=== PATIENT | male | born 1935 | race Caucasian/White ===

== ENCOUNTER 2020-03-20 07:35 | Emergency (ER) | payer OTHER ==
--- OUTSIDE RECORDS SUMMARY | 2020-03-20 07:37 | XMS REPORT | Continuity of Care Document ---
:[address] [facility] t Address [address] [place] [address] Care Team Providers Name Role Phone Sharpless Primary Care Physician STACY ELIZONDO Attending Clinician Unavailable OSMAN CHANDRA Admitting Clinician Unavailable Problems Condition Condition Condition Status Onset Resolution Last Treating Co mments Source Name Details Category Date Date Treatment Clinician Date Chest pain Chest pain Disease Active [facility] - [facility] 00 [place] Positive D Positive D Disease Active [facility] dimer dimer 08-03[facility] - :00: Medical 00 [place] Leg Leg Disease Active [facility] swelling swelling 08[facility] 00 [place] Hypertensi Hypertensi Disease Active [facility] on [facility] Allergies, Adverse Reactions, Alerts This patient has no known allergies or adverse reactions. Social History Social Habit Start Date Stop Date Quantity Comments Source Sex Assigned At [facility] Alcohol intake 2016-08-02 2016-08-02 Current [facility] es - 00:00:00 00:00:00 non-drinker of Medical Ce nter alcohol (finding) Smoking Status Start Date Stop Date Source Never smoker [facility] Medications Ordered Filled Start Stop Current Ordering Indication Dosage Frequency Signature Comments Components Source Medication Medication Date Date Medication? Clinician (SIG) Name Name furosemide Yes 20mg Take [address] (LASIX) 20 08-03 by mouth [facility] - [facility] tablet 20:27: Per EMT, Medi ascencion 40 patient is Center on Lasix, unknown dose, patient doesn't know his meds. . Procedures This patient has no known procedures. Results Test Description Test Time Test Comments Results Result Comments Source CREATINE KINASE (CK), TOTAL AND MB 2016-08-03 13:09:00 Test Item Value Reference Range Interpretation Comme nts CREATINE KINASE TOTAL (BEAKER) (test code = 380) 125 U/L 29-20 0 CREATINE KINASE-MB (BEAKER) (test code = 750) 2.0 ng/mL 0.0-6.6 CREATINE KINASE-MB INDEX (BEAKER) (test code = 395) 1.6 % Effective 03/22/2014: CK-MB Reference Range ChangeNew: 0.0-6.6 Previous: 0.0-4.9CK-MB Reference Range:<6.7 Normal6.7-10.0 Borderline>10.0 AbnormalTROPONIN [id number] 13:09:00 Test Item Value Reference Range Interpretation Comments TROPONIN I (BEAKER) (test code = 0.01 ng/mL 0.00-0.03 397) Effective 03/22/2014: Reference Range ChangeNew: 0.00-0.03 Previous 0.00- 0.15Troponin I (TnI) levels must be interpreted in the context of the presenting symptoms and the clinical findings. Elevated TnI levels indicate myocardial damage, but are not specific for ischemic heart disease. Elevated TnI levels are seen in patients with other cardiac conditions (including myocarditis and congestive heartfailure), and slight TnI elevations occur in patients with other conditions, including sepsis, renalfailure, acidosis, acute neurological disease, and persistent tachyarrhythmia.HEMOGLOBIN [id number] 10:21:00 Test Item Value Reference Range Interpretation Comments HEMOGLOBIN A1C (BEAKER) (test code = 5.5 % 4.3-6.1 368) URINALYSIS W/ [id number] 05:37:00 Test Item Value Reference Range Interpretation Comments COLOR (BEAKER) (test code = 470) Yellow CLARITY (BEAKER) (test code = 469) Clear SPECIFIC GRAVITY UA (BEAKER) (test 1.049 1.001-1.035 H code = 468) PH UA (BEAKER) (test code = 467) 8.0 5.0-8.0 PROTEIN UA (BEAKER) (test code = 10 mg/dL Negative A 464) GLUCOSE UA (BEAKER) (test code = Negative Negative 365) KETONES UA (BEAKER) (test code = Negative Negative 371) BILIRUBIN UA (BEAKER) (test code = Negative Negative 462) BLOOD UA (BEAKER) (test code = 461) Negative Negative NITRITE UA (BEAKER) (test code = Negative Negative 465) LEUKOCYTE ESTERASE UA (BEAKER) Negative Negative (test code = 466) UROBILINOGEN UA (BEAKER) (test code 2.0 mg/dL 0.2-1.0 H = 463) RBC UA (BEAKER) (test code = 519) 1 /HPF WBC UA (BEAKER) (test code = 520) < /HPF SOURCE(BEAKER) (test code = 2795) CBC W/PLT COUNT & AUTO [id number] 05:13:00 Test Item Value Reference Range Interpretation Comments WHITE BLOOD CELL COUNT (BEAKER) 9.6 K/ L 4.0-10.0 (test code = 775) RED BLOOD CELL COUNT (BEAKER) 3.51 M/ L 4.20-5.80 L (test code = 761) HEMOGLOBIN (BEAKER) (test code = 11.1 GM/DL 13.0-16.8 L 410) HEMATOCRIT (BEAKER) (test code = 34.2 % 40.0-50.0 L 411) MEAN CORPUSCULAR VOLUME (BEAKER) 97.4 fL 82.0-98.0 (test code = 753) MEAN CORPUSCULAR HEMOGLOBIN 31.5 pg 27.0-33.0 (BEAKER) (test code = 751) MEAN CORPUSCULAR HEMOGLOBIN CONC 32.4 GM/DL 32.0-36.0 (BEAKER) (test code = 752) RED CELL DISTRIBUTION WIDTH 12.2 % 10.3-14.2 (BEAKER) (test code = 412) PLATELET COUNT (BEAKER) (test 210 K/CU MM 150-430 code = 756) MEAN PLATELET VOLUME (BEAKER) 7.8 fL 6.5-10.5 (test code = 754) NUCLEATED RED BLOOD CELLS 0 /100 WBC 0-0 (BEAKER) (test code = 413) NEUTROPHILS RELATIVE PERCENT 67 % (BEAKER) (test code = 429) LYMPHOCYTES RELATIVE PERCENT 19 % (BEAKER) (test code = 430) MONOCYTES RELATIVE PERCENT 11 % (BEAKER) (test code = 431) EOSINOPHILS RELATIVE PERCENT 3 % (BEAKER) (test code = 432) BASOPHILS RELATIVE PERCENT 1 % (BEAKER) (test code = 437) NEUTROPHILS ABSOLUTE COUNT 6.44 K/ L 1.80-8.00 (BEAKER) (test code = 670) LYMPHOCYTES ABSOLUTE COUNT 1.78 K/ L 1.48-4.50 (BEAKER) (test code = 414) MONOCYTES ABSOLUTE COUNT (BEAKER) 1.04 K/ L 0.00-1.30 (test code = 415) EOSINOPHILS ABSOLUTE COUNT 0.31 K/ L 0.00-0.50 (BEAKER) (test code = 416) BASOPHILS ABSOLUTE COUNT (BEAKER) 0.07 K/ L 0.00-0.20 (test code = 417) 0.00CREATINE KINASE (CK), TOTAL AND [id number] 05:09:00 Test Item Value Reference Range Interpretation Comments CREATINE KINASE TOTAL (BEAKER) 113 U/L 29-200 (test code = 380) CREATINE KINASE-MB (BEAKER) (test 2.1 ng/mL 0.0-6.6 code = 750) CREATINE KINASE-MB INDEX (BEAKER) 1.9 % (test code = 395) Effective 03/22/2014: CK-MB Reference Range ChangeNew: 0.0-6.6 Previous: 0.0-4.9CK-MB Reference Range:<6.7 Normal6.7-10.0 Borderline>10.0 AbnormalTROPONIN [id number] 05:09:00 Test Item Value Reference Range Interpretation Comments TROPONIN I (BEAKER) (test code = 397) < ng/mL 0.00-0.03 Effective 03/22/2014: Reference Range ChangeNew: 0.00-0.03 Previous 0.00- 0.15Troponin I (TnI) levels must be interpreted in the context of the presenting symptoms and the clinical findings. Elevated TnI levels indicate myocardial damage, but are not specific for ischemic heart disease. Elevated TnI levels are seen in patients with other cardiac conditions (including myocarditis and congestive heartfailure), and slight TnI elevations occur in patients with other conditions, including sepsis, renalfailure, acidosis, acute neurological disease, and persistent tachyarrhythmia.LIPID [id number] 05:02:00 Test Item Value Reference Range Interpretation Comments TRIGLYCERIDES (BEAKER) (test code = 42 mg/dL 540) CHOLESTEROL (BEAKER) (test code = 116 mg/dL 631) HDL CHOLESTEROL (BEAKER) (test code 42 mg/dL = 976) LDL CHOLESTEROL CALCULATED (BEAKER) 66 mg/dL (test code = 633) Triglyceride Reference Range: Low Risk <150 Borderline 150-199 High Risk 200-499 Very High Risk >=500Cholesterol Reference Range: Low Risk <200 Borderline 200-239 High Risk >240HDL Cholesterol Reference Range: Low Risk >=60 High Risk <40LDL Cholesterol Reference Range: Optimal <100 Near Optimal 100-129 Borderline 130-159 High 160-189 Very High >=190BASIC METABOLIC [id number] 05:02:00 Test Item Value Reference Range Interpretation Comments SODIUM (BEAKER) 138 meq/L 136-145 (test code = 381) POTASSIUM (BEAKER) 3.7 meq/L 3.5-5.1 (test code = 379) CHLORIDE (BEAKER) 104 meq/L 98-107 (test code = 382) CO2 (BEAKER) (test 25 meq/L 22-29 code = 355) BLOOD UREA NITROGEN 13 mg/dL 7-21 (BEAKER) (test code = 354) CREATININE (BEAKER) 0.94 mg/dL 0.57-1.25 (test code = 358) GLUCOSE RANDOM 111 mg/dL 70-105 H (BEAKER) (test code = 652) CALCIUM (BEAKER) 8.3 mg/dL 8.4-10.2 L (test code = 697) EGFR (BEAKER) (test 77 mL/min/1.73 ESTIMA LEVI GFR IS code = 1092) sq m NOT ACCURATE CREATININE CLEARANCE IN PREDICTING GLOMERULAR FILTRATION RATE . ESTIMATED GFR I S NOT APPLICABLE FOR DIALYSIS PATIEN TS. CREATINE KINASE (CK), TOTAL AND [id number] 00:43:00 Test Item Value Reference Range Interpretation Comments CREATINE KINASE TOTAL (BEAKER) 137 U/L 29-200 (test code = 380) CREATINE KINASE-MB (BEAKER) (test 2.6 ng/mL 0.0-6.6 code = 750) CREATINE KINASE-MB INDEX (BEAKER) 1.9 % (test code = 395) Effective 03/22/2014: CK-MB Reference Range ChangeNew: 0.0-6.6 Previous: 0.0-4.9CK-MB Reference Range:<6.7 Normal6.7-10.0 Borderline>10.0 AbnormalTROPONIN [id number] 00:43:00 Test Item Value Reference Range Interpretation Comments TROPONIN I (BEAKER) (test code = 0.02 ng/mL 0.00-0.03 397) Effective 03/22/2014: Reference Range ChangeNew: 0.00-0.03 Previous 0.00- 0.15Troponin I (TnI) levels must be interpreted in the context of the presenting symptoms and the clinical findings. Elevated TnI levels indicate myocardial damage, but are not specific for ischemic heart disease. Elevated TnI levels are seen in patients with other cardiac conditions (including myocarditis and congestive heartfailure), and slight TnI elevations occur in patients with other conditions, including sepsis, renalfailure, acidosis, acute neurological disease, and persistent tachyarrhythmia.[id number] 00:36:00 Test Item Value Reference Range Interpretation Comments LIPASE (BEAKER) (test code = 749) 34 U/L 8-78 COMPREHENSIVE METABOLIC [id number] 00:36:00 Test Item Value Reference Range Interpretation Comments TOTAL PROTEIN 6.6 gm/dL 6.0-8.3 (BEAKER) (test code = 770) ALBUMIN (BEAKER) 3.6 g/dL 3.5-5.0 (test code = 1145) ALKALINE PHOSPHATASE 95 U/L 40-150 (BEAKER) (test code = 346) BILIRUBIN TOTAL 0.5 mg/dL 0.2-1.2 (BEAKER) (test code = 377) SODIUM (BEAKER) (test 140 meq/L 136-145 code = 381) POTASSIUM (BEAKER) 3.6 meq/L 3.5-5.1 (test code = 379) CHLORIDE (BEAKER) 103 meq/L 98-107 (test code = 382) CO2 (BEAKER) (test 24 meq/L 22-29 code = 355) BLOOD UREA NITROGEN 14 mg/dL 7-21 (BEAKER) (test code = 354) CREATININE (BEAKER) 1.03 mg/dL 0.57-1.25 (test code = 358) GLUCOSE RANDOM 105 mg/dL 70-105 (BEAKER) (test code = 652) CALCIUM (BEAKER) 8.5 mg/dL 8.4-10.2 (test code = 697) AST (SGOT) (BEAKER) 17 U/L 5-34 (test code = 353) ALT (SGPT) (BEAKER) 14 U/L 6-55 (test code = 347) EGFR (BEAKER) (test 69 mL/min/1.73 ESTIMA LEVI GFR IS code = 1092) sq m NOT ACCURATE CREATININE CLEARANCE IN PREDICTING GLOMERULAR FILTRATION RATE . ESTIMATED GFR I S NOT APPLICABLE FOR DIALYSIS PATIEN TS. [id number] 00:28:00 Test Item Value Reference Range Interpretation Comments D-DIMER QUANTITATIVE (BEAKER) 2.25 MG/L FEU <0.50 H (test code = 671) Intended Use: The D-Dimer Assay can be used to aid in the diagnosis of Deep Vein Thrombosis (DVT) and Pulmonary Embolism Disease (PED).In patients with low pre- test probability, various studies concerning STA Liatest D-dimer test have reported that with a cutoff value of 0.50 MG/L FEU, the Negative Predictive Value (NPV) regarding the exclusion of thrombosis is within 95-100% range. PROTHROMBIN TIME/[id number] 00:24:00 Test Item Value Reference Range Interpretation Comments PROTIME (BEAKER) (test code = 13.7 seconds 11.7-14.7 759) INR (BEAKER) (test code = 370) 1.1 <=5.9 RECOMMENDED COUMADIN/WARFARIN INR THERAPY RANGESSTANDARD DOSE: 2.0 - 3.0 Includes: PROPHYLAXIS forvenous thrombosis, systemic embolization; TREATMENT for venous thrombosis and/or pulmonary embolus.HIGH RISK: Target INR is 2.5-3.5 for patients with mechanical heart valves.CBC W/PLT COUNT & AUTO DIFFERENTIAL 2016-08-03 00:18:00 Test Item Value Reference Range Interpretation Comments WHITE BLOOD CELL COUNT (BEAKER) 13.8 K/ L 4.0-10.0 H (test code = 775) RED BLOOD CELL COUNT (BEAKER) 4.00 M/ L 4.20-5.80 L (test code = 761) HEMOGLOBIN (BEAKER) (test code = 13.4 GM/DL 13.0-16.8 410) HEMATOCRIT (BEAKER) (test code = 39.3 % 40.0-50.0 L 411) MEAN CORPUSCULAR VOLUME (BEAKER) 98.4 fL 82.0-98.0 H (test code = 753) MEAN CORPUSCULAR HEMOGLOBIN 33.6 pg 27.0-33.0 H (BEAKER) (test code = 751) MEAN CORPUSCULAR HEMOGLOBIN CONC 34.2 GM/DL 32.0-36.0 (BEAKER) (test code = 752) RED CELL DISTRIBUTION WIDTH 12.3 % 10.3-14.2 (BEAKER) (test code = 412) PLATELET COUNT (BEAKER) (test 276 K/CU MM 150-430 code = 756) MEAN PLATELET VOLUME (BEAKER) 7.9 fL 6.5-10.5 (test code = 754) NUCLEATED RED BLOOD CELLS 0 /100 WBC 0-0 (BEAKER) (test code = 413) NEUTROPHILS RELATIVE PERCENT 67 % (BEAKER) (test code = 429) LYMPHOCYTES RELATIVE PERCENT 20 % (BEAKER) (test code = 430) MONOCYTES RELATIVE PERCENT 10 % (BEAKER) (test code = 431) EOSINOPHILS RELATIVE PERCENT 3 % (BEAKER) (test code = 432) BASOPHILS RELATIVE PERCENT 1 % (BEAKER) (test code = 437) NEUTROPHILS ABSOLUTE COUNT 9.20 K/ L 1.80-8.00 H (BEAKER) (test code = 670) LYMPHOCYTES ABSOLUTE COUNT 2.70 K/ L 1.48-4.50 (BEAKER) (test code = 414) MONOCYTES ABSOLUTE COUNT (BEAKER) 1.40 K/ L 0.00-1.30 H (test code = 415) EOSINOPHILS ABSOLUTE COUNT 0.45 K/ L 0.00-0.50 (BEAKER) (test code = 416) BASOPHILS ABSOLUTE COUNT (BEAKER) 0.10 K/ L 0.00-0.20 (test code = 417) 0.00
--- OUTSIDE RECORDS SUMMARY | 2020-03-20 07:37 | XMS REPORT | Clinical Summary ---
:1935 Author Organization [facility] Address [address] [place] [address] Care Team Providers Name Role Phone Ana Cristina Primary Care Provider Allergies No Known Allergies Medications Medication Sig Dispensed Refills Start Date End Date Status furosemide (LASIX) 20 Take 20 mg by 0 Active MG tablet mouth Per EMT, patient is on Lasix, unknown dose, patient doesn't know his meds. . Active Problems Problem Noted Date Chest pain 08/03/2016 Positive D dimer 08/03/2016 Leg swelling 08/03/2016 Hypertension Social History Tobacco Use Types Packs/Day Years Used Date Never Smoker Alcohol Use Drinks/Week oz/Week Comments No Sex Assigned at Date Recorded Not on file Last Filed Vital Signs Not on file Plan of Treatment Not on file Results Not on fileafter 03/20/2019 Insurance Payer Benefit Plan / Subscriber ID Effective Phone Address T ype Group Dates HUMANA - HUMANA MEDICARE [id number] 2016-Wendy Palmer Contracted MEDICARE MGD ADV nt [facility] [id number] 2016-Wendy Herrera edigap SUPPLEMENT/IN HEALTHCARE nt DIVIDUAL Advance Directives For more information, please contact: [phone] Code Status Date Activated Date Inactivated Comments Full Code 08/03/2016 3:43 AM 08/03/2016 10:27 PM This code status was determined by: Patient
[2020-03-20] MEDS ORDERED: ONDANSETRON 4 MG/2 ML VIAL ONE (08:00)
[2020-03-20] MEDS ORDERED: MORPHINE 2 MG/ML SYR ONE ×4 (08:00→16:32)
[2020-03-20 08:08] LABS: Absolute Lymphocytes (CBC) 2.3 K/uL (0.7-4.9); Basophils % 1.2 % (0-1.3); Hematocrit 39.3 % (39.6-49.0); MPV 8.3 fL (7.6-11.3); RBC Red Blood Cell Count 4.19 M/uL (4.33-5.43)
[2020-03-20 08:17] LABS: Protime INR 1.06
[2020-03-20 08:43] LABS: Urine Blood NEGATIVE (NEG); Urine Glucose NEGATIVE (NEG); Urine Protein NEGATIVE (NEG); Urine pH 6.5 (5.0-7.0)
--- NOTE | 2020-03-20 08:52 | RAD REPORT ---
EXAM DESCRIPTION: RAD - Humerus Right - 03/20/2020 8:43 am CLINICAL HISTORY: Right arm pain status post fall FINDINGS: No fracture is seen. The bones are osteoporotic
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
--- NOTE | 2020-03-20 08:53 | RAD REPORT ---
EXAM DESCRIPTION: RAD - Femur Left - 03/20/2020 8:44 am CLINICAL HISTORY: Left leg pain FINDINGS: A right hip arthroplasty. Left femoral prosthesis is dislocated superior laterally. Osteoporosis No fractures seen.
[2020-03-20] MEDS ORDERED: propofoL 200 MG/20 ML VIAL IV ONE (09:17)
[2020-03-20] MEDS ORDERED: ETOMIDATE 20 MG/10 ML VIAL IV ONE (09:17)
[2020-03-20] MEDS ORDERED: NA CHLORIDE 0.9% 500 ML ONE ×2 (09:17→10:25)
[2020-03-20] MEDS ORDERED: FENTANYL CITR 100 MCG/2 ML ONE (09:17)
--- NOTE | 2020-03-20 14:15 | ER ---
Nurse's Notes [facility] Name: Angel Robb Age: 84 yrs Sex: Male : 1935 Arrival Date: 03/20/2020 Time: 07:35 Bed 5 Private MD: Diagnosis: Dislocation of internal left hip prosthesis;Dementia in other diseases classified elsewhere;Possible CVA Presentation: 03/20 07:35 Trauma event details: Injury occurred in the [facility], Injury occurred: [place] [facility] Injury occurred: March 20, 2020. 07:36 Chief complaint: EMS states: was found on the floor between the toilet and the wall sv with his right arm at a "weird angle" behind him, attempted to get him off the ground for about an hour and saw that his left leg was at a different angle and pt was in pain. Care prior to arrival: Placed on backboard. Mechanism of Injury: Fall. 07:36 Acuity: GAVINO 2 07:36 Method Of Arrival: EMS: [facility] 07:36 Coronavirus screen: Client denies travel out of the [place] in the last 14 days. At this sv time, the client does not indicate any symptoms associated with coronavirus-19. Ebola Screen: No symptoms or risks identified at this time. Initial Sepsis Screen: Does the patient meet any 2 criteria? No. Patient's initial sepsis screen is negative. Does the patient have a suspected source of infection? No. Patient's initial sepsis screen is negative. Risk Assessment: Do you want to hurt yourself or someone else? Patient reports no desire to harm self or others. Onset of symptoms was March 20, 2020. 08:25 Coronavirus screen: The client reports previous COVID testing was negative. Date of sv collection: March 02, 2020. Trauma Activation: Not Applicable Physician: ED Physician; Name: ; Notified At: ; Arrived At: Physician: General Surgeon; Name: ; Notified At: ; Arrived At: Physician: Radiology; Name: ; Notified At: ; Arrived At: Physician: Respiratory; Name: ; Notified At: ; Arrived At: Physician: Lab; Name: ; Notified At: ; Arrived At: Historical: - Allergies: 08:25 No Known Allergies; sv - Home Meds: 08:45 aspirin 81 mg Oral chew 1 tab once daily [Active]; docusate sodium 100 mg Oral tab 1 sv tab once daily [Active]; ferrous sulfate 325 mg (65 mg iron) Oral tab daily [Active]; Exelon patch 4.6 mg/24 hr 1 patch transdermally daily [Active]; Flomax 0.4 mg Oral cp24 2 caps once daily [Active]; lisinopril 20 mg Oral tab twice a day [Active]; melatonin 3 mg Oral tab 2 tab nightly [Active]; trazodone 50 mg Oral tab nightly [Active]; Trileptal 300 mg oral tab 1 tab 2 times per day [Active]; Zoloft 25 mg Oral tab 1 tab once daily [Active]; - PMHx: 08:25 Hypertension; Glaucoma; Anxiety; 1st degree AVB; CHF; insomnia; PVD; Osteoarthritis; sv Anemia; BPH; Diverticulitis; Gout; Dementia; Infective myocarditis; Cholelithiasis; Depressive disorder w/ severe psychotic symptoms; COVID-19; - PSHx: 08:25 left hip replacement; sv - Immunization history:: Adult Immunizations up to date. - Family history:: not pertinent. - Social history:: Smoking status: Patient denies any tobacco usage or history of. - Hospitalizations: : No recent hospitalization is reported. Screenin:00 Abuse screen: Denies threats or abuse. Denies injuries from another. Nutritional sv screening: No deficits noted. Tuberculosis screening: No symptoms or risk factors identified. Fall Risk No fall in past 12 months (0 pts). Secondary diagnosis (15 points) dementia, IV access (20 points). Ambulatory Aid- None/Bed Rest/Nurse Assist (0 pts). Gait- Normal/Bed Rest/Wheelchair (0 pts) Mental Status- Overestimates/Forgets Limitations (15 pts.). Total Hernandez Fall Scale indicates High Risk Score (45 or more points). Fall prevention measures have been instituted. Side Rails Up X 2 Frequent Obs/Assessments Occuring As available patient and family educated on Fall Prevention Program and Strategies. Primary Survey: 07:31 NO uncontrolled hemorrhage observed. A: The patient is alert. Airway: patent, No sv supplemental oxygen in use on arrival. Oral cavity: clear, Trachea midline. Breathing/Chest: Respiratory pattern: regular, Respiratory effort: spontaneous, unlabored, Chest inspection: symmetrical rise and fall of the chest. Circulation: Heart tones present. Pulses: palpable right radial artery, right dorsalis pedis artery, left radial artery and left dorsalis pedis artery. Skin color: pink, Skin temperature: warm, dry. Disability Alert. Exposure/Environment: All clothing and personal items were removed. Forensic evidence collection is not deemed to be indicated at this time. Items placed in patient belonging bag. There is no evidence of uncontrolled external bleeding. No obvious injuries are noted at this time. A warming method has been applied: A warm blanket has been provided to the patient. 07:45 Reassessment Airway Airway Patent Oxygen No O2 Oral cavity Clear Trachea Midline sv Breathing/Chest Respiratory pattern Regular Respiratory effort Spontaneous Unlabored Chest inspection Symmetrical Circulation Heart tones Present Pulses Palpable Color [place] Temperature Warm Dry Disability Alert. Secondary Survey: 07:31 HEENT: No deficits noted. Gastrointestinal: No deficits noted. : No deficits noted. sv No signs and/or symptoms were reported regarding the genitourinary system. Musculoskeletal: Range of motion: limited in left hip. Assessment: 08:46 Reassessment: Patient appears in no apparent distress at this time. No changes from sv previously documented assessment. Patient and/or family updated on plan of care and expected duration. Pain level reassessed. 09:38 Reassessment: Patient appears in no apparent distress at this time. No changes from sv previously documented assessment. Patient and/or family updated on plan of care and expected duration. Pain level reassessed. 11:30 Reassessment: Patient appears in no apparent distress at this time. No changes from sv previously documented assessment. Patient and/or family updated on plan of care and expected duration. Pain level reassessed. 12:45 Reassessment: Patient appears in no apparent distress at this time. No changes from sv previously documented assessment. Patient and/or family updated on plan of care and expected duration. Pain level reassessed. 14:15 Reassessment: Patient appears in no apparent distress at this time. No changes from sv previously documented assessment. Patient and/or family updated on plan of care and expected duration. Pain level reassessed. 15:36 Reassessment: Spoke with daughter Angelia regarding transfer. sv 15:55 Reassessment: Patient appears in no apparent distress at this time. No changes from sv previously documented assessment. Patient and/or family updated on plan of care and expected duration. Pain level reassessed. 16:22 Reassessment: Report given to EMS. sv Vital Signs: 07:31 BP 154 / 84; Pulse 88; Resp 20; Temp 97.3; Pulse Ox 97% ; Pain 10/10; sv 07:45 BP 158 / 83; Pulse 87; Resp 18; Temp 97.8; Pulse Ox 97% ; sv 08:00 Pulse Ox 88% on R/A; sv 09:15 BP 131 / 75; Pulse 91; Resp 24; Pulse Ox 100% on 2 lpm NC; sv 09:35 BP 146 / 87; Pulse 90; Resp 17; Pulse Ox 99% ; sv 10:13 BP 155 / 87; Pulse 89; Resp 22; Pulse Ox 97% ; sv 11:10 BP 164 / 79; Pulse 89; Resp 24; Pulse Ox 100% on 2 lpm NC; mh5 12:00 BP 182 / 86; Pulse 97; Resp 17; Pulse Ox 100% on R/A; mh5 13:00 BP 123 / 92; Pulse 91; Resp 17; Pulse Ox 99% on R/A; sv 13:47 BP 123 / 89; Pulse 99; Resp 15; Pulse Ox 98% on R/A; sv 14:15 BP 122 / 65; Pulse 109; Resp 19; Pulse Ox 94% ; sv 15:00 BP 145 / 71; Pulse 102; Resp 13; Pulse Ox 95% ; sv 15:45 BP 167 / 84; Pulse 109; Resp 16; Pulse Ox 95% on R/A; sv 08:00 Pt placed on O2 \\T\\ 2L per NC. O2 sat up to 98%. sv [place] Coma Score: 07:31 Eye Response: spontaneous(4). Verbal Response: confused(4). Motor Response: obeys sv commands(6). Total: 14. 07:45 Eye Response: spontaneous(4). Verbal Response: confused(4). Motor Response: obeys sv commands(6). Total: 14. Trauma Score (Adult): 07:31 Eye Response: spontaneous(1); Verbal Response: confused(1); Motor Response: obeys sv commands(2); Systolic BP: > 89 mm Hg(4); Respiratory Rate: 10 to 29 per min(4); [place] Score: 14; Trauma Score: 12 07:45 Eye Response: spontaneous(1); Verbal Response: confused(1); Motor Response: obeys sv commands(2); Systolic BP: > 89 mm Hg(4); Respiratory Rate: 10 to 29 per min(4); Juan Score: 14; Trauma Score: 12 08:00 Eye Response: spontaneous(1); Verbal Response: confused(1); Motor Response: obeys sv commands(2); Systolic BP: > 89 mm Hg(4); Respiratory Rate: 10 to 29 per min(4); Juan Score: 14; Trauma Score: 12 09:15 Eye Response: spontaneous(1); Verbal Response: confused(1); Motor Response: obeys sv commands(2); Systolic BP: > 89 mm Hg(4); Respiratory Rate: 10 to 29 per min(4); Juan Score: 14; Trauma Score: 12 10:13 Eye Response: spontaneous(1); Verbal Response: confused(1); Motor Response: obeys sv commands(2); Systolic BP: > 89 mm Hg(4); Respiratory Rate: 10 to 29 per min(4); Juan Score: 14; Trauma Score: 12 11:10 Eye Response: spontaneous(1); Verbal Response: confused(1); Motor Response: obeys sv commands(2); Systolic BP: > 89 mm Hg(4); Respiratory Rate: 10 to 29 per min(4); Juan Score: 14; Trauma Score: 12 12:00 Eye Response: spontaneous(1); Verbal Response: confused(1); Motor Response: obeys sv commands(2); Systolic BP: > 89 mm Hg(4); Respiratory Rate: 10 to 29 per min(4); Juan Score: 14; Trauma Score: 12 13:00 Eye Response: spontaneous(1); Verbal Response: confused(1); Motor Response: obeys sv commands(2); Systolic BP: > 89 mm Hg(4); Respiratory Rate: 10 to 29 per min(4); [place] Score: 14; Trauma Score: 12 13:47 Eye Response: spontaneous(1); Verbal Response: confused(1); Motor Response: obeys sv commands(2); Systolic BP: > 89 mm Hg(4); Respiratory Rate: 10 to 29 per min(4); Juan Score: 14; Trauma Score: 12 14:15 Eye Response: spontaneous(1); Verbal Response: confused(1); Motor Response: obeys sv commands(2); Systolic BP: > 89 mm Hg(4); Respiratory Rate: 10 to 29 per min(4); [place] Score: 14; Trauma Score: 12 15:00 Eye Response: spontaneous(1); Verbal Response: confused(1); Motor Response: obeys sv commands(2); Systolic BP: > 89 mm Hg(4); Respiratory Rate: 10 to 29 per min(4); Juan Score: 14; Trauma Score: 12 15:45 Eye Response: spontaneous(1); Verbal Response: confused(1); Motor Response: obeys sv commands(2); Systolic BP: > 89 mm Hg(4); Respiratory Rate: 10 to 29 per min(4); [place] Score: 14; Trauma Score: 12 ED Course: 07:35 Patient arrived in ED. sv 07:35 Carmelita Dougherty, RN is Primary Nurse. sv 07:35 Pedro Luis Rodriguez MD is Attending Physician. rn 07:35 Patient maintains SpO2 saturation greater than 95% on room air. sv 07:35 Thermoregulation: warm blanket given to patient. sv 07:35 Arm band placed on. sv 07:35 Patient has correct armband on for positive identification. Placed in gown. Bed in low sv position. Call light in reach. Side rails up X2. front desk monitor on. Pulse ox on. NIBP on. Door closed. Warm blanket given. Head of bed elevated. 07:37 Triage completed. sv 07:40 T\\T\\S collected, blood band applied to patient. Inserted saline lock: 20 gauge in left sv forearm, using aseptic technique. Blood collected. Flushed left forearm with 5 ml normal saline. 08:00 Finley cath inserted, using sterile technique, 16 Fr., by nv, balloon inflated, to sv gravity drainage, urine specimen collected. returned clear yellow urine. Patient tolerated well. 08:[address] via stretcher. sv 08:20 CT Traumagram (Head C Spine CAP W Con) In Process Unspecified. EDMS 08:43 XRAY Humerus RIGHT In Process Unspecified. EDMS 08:43 XRAY Femur LEFT In Process Unspecified. EDMS 08:45 Patient moved back from radiology. sv 08:46 Awaiting lab results, Awaiting radiology results. sv 09:34 Assist provider with reduction of left pathologic or non traumatic hip using traction, sv manipulation, Set up for procedure. Performed by Pedro Luis Rodriguez MD Patient tolerated poorly. unsuccessful. 12:16 attempted to contact ortho shock absorption floor layer, no answer on his cell, no answer at his office, bd phone rolled over to [facility] access center, they are not able to contact him either. Attempted to contact ortho shock absorption floor layer PA, no answer on his cell. 15:49 Patient transferred, IV remains in place. intact. sv 15:55 transfer transportation to receiving facility. sv Administered Medications: 07:50 Drug: Zofran (Ondansetron) 4 mg Route: IVP; Site: left forearm; sv 08:50 Follow up: Response: No adverse reaction sv 07:52 Drug: morphine 2 mg {Note: rass2.} Route: IVP; Site: left forearm; sv 08:50 Follow up: Response: No adverse reaction; RASS: Alert and Calm (0) sv 09:31 Drug: fentaNYL (PF) 50 mcg {Note: rass3.} Route: IVP; Site: left forearm; sv 10:00 Follow up: Response: No adverse reaction; RASS: Restless (+1) sv 09:34 Drug: Etomidate 2.5 mg Route: IVP; Site: left forearm; sv 10:00 Follow up: Response: No adverse reaction sv 09:36 Drug: Etomidate 1 mg Route: IVP; Site: left forearm; sv 10:00 Follow up: Response: No adverse reaction sv 09:38 Drug: Etomidate 1 mg Route: IVP; Site: left forearm; sv 10:00 Follow up: Response: No adverse reaction sv 09:41 Drug: Propofol 30 mg Route: IVP; Site: left forearm; sv 10:00 Follow up: Response: No adverse reaction sv 09:43 Drug: Propofol 20 mg Route: IVP; Site: left forearm; sv 10:00 Follow up: Response: No adverse reaction sv 09:48 Drug: Propofol 20 mg Route: IVP; Site: left forearm; sv 10:00 Follow up: Response: No adverse reaction sv 09:54 Drug: Propofol 20 mg Route: IVP; Site: left forearm; sv 10:00 Follow up: Response: No adverse reaction sv 09:55 Drug: Propofol 20 mg Route: IVP; Site: left forearm; sv 10:00 Follow up: Response: No adverse reaction sv 13:21 Not Given (Physician Discretion): Fosphenytoin 20 mg pe/kg IV at calculated rate once; ss administer at a rate not to exceed 100 mg PE per minute 14:15 Drug: morphine 2 mg {Note: rass2.} Route: IVP; Site: left forearm; sv 15:00 Follow up: Response: No adverse reaction; RASS: Alert and Calm (0) sv 16:20 Drug: morphine 2 mg {Note: rass1.} Route: IVP; Site: left forearm; sv 16:24 Follow up: Response: No adverse reaction; Medication administered at discharge. sv 16:24 CANCELLED (Duplicate Order): morphine 2 mg IVP once; RASS on ADMIN: Combtv4, Very vg1 Agttd3, Agttd2, Rstlss1, AlertClm0, Drwsy-1, Lt Sdtn-2, Mod Sdtn-3, Dp Sdtn-4, UnArsble-5 Intake: 07:31 PO: 0ml; Total: 0ml. sv 07:45 PO: 0ml; Total: 0ml. sv 08:00 PO: 0ml; Total: 0ml. sv 09:15 PO: 0ml; Total: 0ml. sv 10:13 PO: 0ml; Total: 0ml. sv 11:10 PO: 0ml; Total: 0ml. sv 12:00 PO: 0ml; Total: 0ml. sv 13:00 PO: 0ml; Total: 0ml. sv 13:47 PO: 0ml; Total: 0ml. sv 14:15 PO: 0ml; Total: 0ml. sv Output: 07:31 Urine: 0ml; Total: 0ml. sv 07:45 Urine: 0ml; Total: 0ml. sv 08:00 Urine: 0ml; Total: 0ml. sv 09:15 Urine: 0ml; Total: 0ml. sv 10:13 Urine: 0ml; Total: 0ml. sv 11:10 Urine: 0ml; Total: 0ml. sv 12:00 Urine: 0ml; Total: 0ml. sv 13:00 Urine: 0ml; Total: 0ml. sv 13:47 Urine: 0ml; Total: 0ml. sv 14:15 Urine: 0ml; Total: 0ml. sv 15:45 Urine: 600ml (Tushar); Total: 600ml. sv Outcome: 14:15 ER care complete, transfer ordered by . tavon 15:31 Transferred by ground EMS to [facility], [facility], Transfer form completed. sv X-rays sent w/ patient. Note: Report given to Negar TRUJILLO at [facility] 15:31 Condition: stable 15:31 Instructed on the need for transfer. 15:49 Patient's length of stay in the Emergency Department was greater than 2 hours. d/t not sv being able to do a reduction of the left hipPatient's length of stay extended due to 16:22 Patient left the ED. sv 16:25 Patient left the ED. sv Signatures: Dispatcher [employer] EDMS Sybil Castillo Stephanie, RN RN Pedro Luis Rodriguez MD MD rn Martinez, Kimberly [facility] Gela Campbell RN, Victoria RN vg1 Corrections: (The following items were deleted from the chart) 09:04 07:52 morphine 2 mg IVP in left forearm sv sv 09:32 09:31 fentaNYL (PF) 50 mcg IVP in left forearm sv sv 15:50 13:02 BP 123 / 92; Pulse 91bpm; Resp 17bpm; Pulse Ox 99% RA; mh5 sv 16:13 14:15 morphine 2 mg IVP in left forearm sv sv
--- NOTE | 2020-03-20 14:15 | EDPHYS ---
Physician Documentation [facility] Name: Angel Robb Age: 84 yrs Sex: Male : 1935 Arrival Date: 03/20/2020 Time: 07:35 Bed 5 Private MD: ED Physician Pedro Luis Rodriguez HPI: 03/20 08:05 This 84 yrs old Male presents to ER via EMS with complaints of Fall Injury. rn 08:05 Details of fall: The patient fell from seated position. Onset: The symptoms/episode rn began/occurred just prior to arrival. Associated injuries: The patient sustained right flank, left hip, right arm. Severity of symptoms: At their worst the symptoms were moderate, in the emergency department the symptoms are unchanged. The patient has not experienced similar symptoms in the past. The patient has not recently seen a physician. Found on floor next to toilet, + severe pain to left leg, right arm pain. . Historical: - Allergies: 08:25 No Known Allergies; sv - Home Meds: 08:45 aspirin 81 mg Oral chew 1 tab once daily [Active]; docusate sodium 100 mg Oral tab 1 sv tab once daily [Active]; ferrous sulfate 325 mg (65 mg iron) Oral tab daily [Active]; Exelon patch 4.6 mg/24 hr 1 patch transdermally daily [Active]; Flomax 0.4 mg Oral cp24 2 caps once daily [Active]; lisinopril 20 mg Oral tab twice a day [Active]; melatonin 3 mg Oral tab 2 tab nightly [Active]; trazodone 50 mg Oral tab nightly [Active]; Trileptal 300 mg oral tab 1 tab 2 times per day [Active]; Zoloft 25 mg Oral tab 1 tab once daily [Active]; - PMHx: 08:25 Hypertension; Glaucoma; Anxiety; 1st degree AVB; CHF; insomnia; PVD; Osteoarthritis; sv Anemia; BPH; Diverticulitis; Gout; Dementia; Infective myocarditis; Cholelithiasis; Depressive disorder w/ severe psychotic symptoms; COVID-19; - PSHx: 08:25 left hip replacement; sv - Immunization history:: Adult Immunizations up to date. - Family history:: not pertinent. - Social history:: Smoking status: Patient denies any tobacco usage or history of. - Hospitalizations: : No recent hospitalization is reported. ROS: 08:05 Constitutional: Negative for fever, chills, and weight loss, Eyes: Negative for injury, rn pain, redness, and discharge, ENT: Negative for injury, pain, and discharge, Neck: Negative for injury, pain, and swelling, Cardiovascular: Negative for chest pain, palpitations, and edema, Respiratory: Negative for shortness of breath, cough, wheezing, and pleuritic chest pain, Abdomen/GI: Negative for abdominal pain, nausea, vomiting, diarrhea, and constipation, Back: + right flank pain MS/Extremity: + right arm pain, + left leg pain Neuro: Negative for headache, weakness, numbness, tingling, and seizure. Exam: 08:05 Constitutional: This is a well developed, well nourished patient who is awake, alert, rn + appears uncomfortable and in pain Head/Face: Normocephalic, atraumatic. ENT: No oral trauma Neck: No cervical tenderness Cardiovascular: Regular rate and rhythm. No pulse deficits. Respiratory: + mild tachypnea Abdomen/GI: soft, + right sided abd tenderness Back: No spinal tenderness, + right lower back ecchymosis with tenderness. MS/ Extremity: Pulses equal, no cyanosis. + painful palpation and movement left hip and femur, + grinding and mild pain with ROM right shoulder. Neuro: Awake and alert, GCS 15 Vital Signs: 07:31 BP 154 / 84; Pulse 88; Resp 20; Temp 97.3; Pulse Ox 97% ; Pain 10/10; sv 07:45 BP 158 / 83; Pulse 87; Resp 18; Temp 97.8; Pulse Ox 97% ; sv 08:00 Pulse Ox 88% on R/A; sv 09:15 BP 131 / 75; Pulse 91; Resp 24; Pulse Ox 100% on 2 lpm NC; sv 09:35 BP 146 / 87; Pulse 90; Resp 17; Pulse Ox 99% ; sv 10:13 BP 155 / 87; Pulse 89; Resp 22; Pulse Ox 97% ; sv 11:10 BP 164 / 79; Pulse 89; Resp 24; Pulse Ox 100% on 2 lpm NC; mh5 12:00 BP 182 / 86; Pulse 97; Resp 17; Pulse Ox 100% on R/A; mh5 13:00 BP 123 / 92; Pulse 91; Resp 17; Pulse Ox 99% on R/A; sv 13:47 BP 123 / 89; Pulse 99; Resp 15; Pulse Ox 98% on R/A; sv 14:15 BP 122 / 65; Pulse 109; Resp 19; Pulse Ox 94% ; sv 15:00 BP 145 / 71; Pulse 102; Resp 13; Pulse Ox 95% ; sv 15:45 BP 167 / 84; Pulse 109; Resp 16; Pulse Ox 95% on R/A; sv 08:00 Pt placed on O2 \T\ 2L per NC. O2 sat up to 98%. sv Juan Coma Score: 07:31 Eye Response: spontaneous(4). Verbal Response: confused(4). Motor Response: obeys sv commands(6). Total: 14. 07:45 Eye Response: spontaneous(4). Verbal Response: confused(4). Motor Response: obeys sv commands(6). Total: 14. Trauma Score (Adult): 07:31 Eye Response: spontaneous(1); Verbal Response: confused(1); Motor Response: obeys sv commands(2); Systolic BP: > 89 mm Hg(4); Respiratory Rate: 10 to 29 per min(4); [place] Score: 14; Trauma Score: 12 07:45 Eye Response: spontaneous(1); Verbal Response: confused(1); Motor Response: obeys sv commands(2); Systolic BP: > 89 mm Hg(4); Respiratory Rate: 10 to 29 per min(4); Juan Score: 14; Trauma Score: 12 08:00 Eye Response: spontaneous(1); Verbal Response: confused(1); Motor Response: obeys sv commands(2); Systolic BP: > 89 mm Hg(4); Respiratory Rate: 10 to 29 per min(4); Juan Score: 14; Trauma Score: 12 09:15 Eye Response: spontaneous(1); Verbal Response: confused(1); Motor Response: obeys sv commands(2); Systolic BP: > 89 mm Hg(4); Respiratory Rate: 10 to 29 per min(4); Juan Score: 14; Trauma Score: 12 10:13 Eye Response: spontaneous(1); Verbal Response: confused(1); Motor Response: obeys sv commands(2); Systolic BP: > 89 mm Hg(4); Respiratory Rate: 10 to 29 per min(4); Juan Score: 14; Trauma Score: 12 11:10 Eye Response: spontaneous(1); Verbal Response: confused(1); Motor Response: obeys sv commands(2); Systolic BP: > 89 mm Hg(4); Respiratory Rate: 10 to 29 per min(4); [place] Score: 14; Trauma Score: 12 12:00 Eye Response: spontaneous(1); Verbal Response: confused(1); Motor Response: obeys sv commands(2); Systolic BP: > 89 mm Hg(4); Respiratory Rate: 10 to 29 per min(4); [place] Score: 14; Trauma Score: 12 13:00 Eye Response: spontaneous(1); Verbal Response: confused(1); Motor Response: obeys sv commands(2); Systolic BP: > 89 mm Hg(4); Respiratory Rate: 10 to 29 per min(4); Juan Score: 14; Trauma Score: 12 13:47 Eye Response: spontaneous(1); Verbal Response: confused(1); Motor Response: obeys sv commands(2); Systolic BP: > 89 mm Hg(4); Respiratory Rate: 10 to 29 per min(4); [place] Score: 14; Trauma Score: 12 14:15 Eye Response: spontaneous(1); Verbal Response: confused(1); Motor Response: obeys sv commands(2); Systolic BP: > 89 mm Hg(4); Respiratory Rate: 10 to 29 per min(4); [place] Score: 14; Trauma Score: 12 15:00 Eye Response: spontaneous(1); Verbal Response: confused(1); Motor Response: obeys sv commands(2); Systolic BP: > 89 mm Hg(4); Respiratory Rate: 10 to 29 per min(4); Juan Score: 14; Trauma Score: 12 15:45 Eye Response: spontaneous(1); Verbal Response: confused(1); Motor Response: obeys sv commands(2); Systolic BP: > 89 mm Hg(4); Respiratory Rate: 10 to 29 per min(4); [place] Score: 14; Trauma Score: 12 Procedures: 14:10 Reduction: of the left hip, using traction, manipulation, Flexion, extension, rn internal/external rotation, Patient tolerated well. Unsuccessful reduction. Moderate sedation: Pre-procedure assessment: ASA physical classification: II - mild/mod systemic disease that does not interfere with daily routines, Airway assessment: able to hyperextend neck, able to maintain airway, can open mouth without difficulty, Monitoring during procedure: nurse monitoring, continuous pulse oximetry, nurse at bedside at all times, Medications employed: Etomidate, 4.5 mg(s), Fentanyl, 50 mcg(s), Propofol, Post-procedure assessment: the patient is mildly sedated, Respiratory status: even and unlabored, a reversal agent was not used. MDM: 07:35 Patient medically screened. rn 09:19 ED course: Per report, patient was left on commode early this AM, unknown last known rn normal, and report stated at baseline mentally. CT shows possible infarct, unable to tell acute/subacute and no last known normal available. Pt with dementia and doesn't even recall being in bathroom. . 10:12 ED course: Attempted moderate sedation with reduction, unsuccessful, breathing ok, rn awakens to stimuli.. 10:26 ED course: Called Dr. Mae, no answer, left answer. . rn 12:36 ED course: Tried Dr. Mae's cell phone, house phone, clinic, no answer, has been rn hours, contacted Dr. Dickens, his concern is that hardware may be a little loose and recommends transfer for possible open reduction and hip revision. . 13:14 ED course: Consulted with Dr. Posada, believes patient should be admitted under rn hospitalist service with ortho consult, neuro can be consulted if warranted. Will call me back with ortho/hospitalist. . 14:10 Differential diagnosis: closed head injury, contusion, fracture, sprain, strain, hip rn fracture, hip dislocation. Data reviewed: vital signs, nurses notes, lab test result(s), radiologic studies, CT scan, plain films, and as a result, I will admit patient. Counseling: I had a detailed discussion with the patient and/or guardian regarding: the historical points, exam findings, and any diagnostic results supporting the discharge/admit diagnosis, lab results, radiology results, the need to transfer to another facility, for higher level of care. Response to treatment: the patient's symptoms have mildly improved after treatment, and as a result, I will admit patient. 14:13 ED course: Accepted for transfer to [facility] for hip reduction and medical w/u of rn possible CVA. . 03/20 07:37 Order name: Basic Metabolic Panel; Complete Time: 08:54 rn 03/20 07:37 Order name: CBC with Diff; Complete Time: 08:54 rn 03/20 07:37 Order name: Type And Screen; Complete Time: 09:19 rn 03/20 07:37 Order name: PT-INR; Complete Time: 08:54 rn 03/20 07:37 Order name: Ptt, Activated; Complete Time: 08:54 rn 03/20 08:14 Order name: Urine Dipstick--Ancillary (enter results); Complete Time: 08:54 bd 03/20 07:36 Order name: CT Traumagram (Head C Spine CAP W Con); Complete Time: 08:54 rn 03/20 07:37 Order name: XRAY Humerus RIGHT; Complete Time: 08:54 rn 03/20 07:37 Order name: XRAY Femur LEFT; Complete Time: 08:54 rn 03/20 07:37 Order name: Labs collected and sent; Complete Time: 08:16 rn 03/20 07:37 Order name: EKG - Nurse/Tech; Complete Time: 08:16 rn 03/20 07:37 Order name: EKG; Complete Time: 07:38 rn 03/20 08:53 Order name: NPO; Complete Time: 09:03 rn 03/20 08:53 Order name: Moderate Sedation; Complete Time: 09:03 rn Administered Medications: 07:50 Drug: Zofran (Ondansetron) 4 mg Route: IVP; Site: left forearm; sv 08:50 Follow up: Response: No adverse reaction sv 07:52 Drug: morphine 2 mg {Note: rass2.} Route: IVP; Site: left forearm; sv 08:50 Follow up: Response: No adverse reaction; RASS: Alert and Calm (0) sv 09:31 Drug: fentaNYL (PF) 50 mcg {Note: rass3.} Route: IVP; Site: left forearm; sv 10:00 Follow up: Response: No adverse reaction; RASS: Restless (+1) sv 09:34 Drug: Etomidate 2.5 mg Route: IVP; Site: left forearm; sv 10:00 Follow up: Response: No adverse reaction sv 09:36 Drug: Etomidate 1 mg Route: IVP; Site: left forearm; sv 10:00 Follow up: Response: No adverse reaction sv 09:38 Drug: Etomidate 1 mg Route: IVP; Site: left forearm; sv 10:00 Follow up: Response: No adverse reaction sv 09:41 Drug: Propofol 30 mg Route: IVP; Site: left forearm; sv 10:00 Follow up: Response: No adverse reaction sv 09:43 Drug: Propofol 20 mg Route: IVP; Site: left forearm; sv 10:00 Follow up: Response: No adverse reaction sv 09:48 Drug: Propofol 20 mg Route: IVP; Site: left forearm; sv 10:00 Follow up: Response: No adverse reaction sv 09:54 Drug: Propofol 20 mg Route: IVP; Site: left forearm; sv 10:00 Follow up: Response: No adverse reaction sv 09:55 Drug: Propofol 20 mg Route: IVP; Site: left forearm; sv 10:00 Follow up: Response: No adverse reaction sv 13:21 Not Given (Physician Discretion): Fosphenytoin 20 mg pe/kg IV at calculated rate once; ss administer at a rate not to exceed 100 mg PE per minute 14:15 Drug: morphine 2 mg {Note: rass2.} Route: IVP; Site: left forearm; sv 15:00 Follow up: Response: No adverse reaction; RASS: Alert and Calm (0) sv 16:20 Drug: morphine 2 mg {Note: rass1.} Route: IVP; Site: left forearm; sv 16:24 Follow up: Response: No adverse reaction; Medication administered at discharge. sv 16:24 CANCELLED (Duplicate Order): morphine 2 mg IVP once; RASS on ADMIN: Combtv4, Very vg1 Agttd3, Agttd2, Rstlss1, AlertClm0, Drwsy-1, Lt Sdtn-2, Mod Sdtn-3, Dp Sdtn-4, UnArsble-5 Disposition: 03/20/20 14:15 Transfer ordered to [facility]. Diagnosis are Dislocation of internal left hip prosthesis, Dementia in other diseases classified elsewhere, Possible CVA. - Reason for transfer: Higher level of care. - Accepting physician is . - Condition is Stable. - Problem is new. - Symptoms have improved. Signatures: Dispatcher [employer] Carmelita Benavidez RN RN Pedro Luis Charles MD MD rn Garcia, Victoria, RN RN vg1 Gela Campbell RN ss Corrections: (The following items were deleted from the chart) 15:05 14:10 CORONAVIRUS+ ordered. EDMS EDMS 16:22 14:15 03/20/2020 14:15 Transfer ordered to [facility]. sv Diagnosis is Dislocation of internal left hip prosthesis; Dementia in other diseases classified elsewhere; Possible CVA. Reason for transfer: Higher level of care. Accepting physician is . Condition is Stable. Problem is new. Symptoms have improved. rn 16:24 16:24 morphine 2 mg IVP once; RASS on ADMIN: Combtv4, Very Agttd3, Agttd2, Rstlss1, vg1 AlertClm0, Drwsy-1, Lt Sdtn-2, Mod Sdtn-3, Dp Sdtn-4, UnArsble-5 ordered. vg1 16:25 16:22 03/20/2020 14:15 Transfer ordered to [facility]. sv Diagnosis is Dislocation of internal left hip prosthesis; Dementia in other diseases classified elsewhere; Possible CVA. Reason for transfer: Higher level of care. Accepting physician is . Condition is Stable. Problem is new. Symptoms have improved. sv
[2020-03-20 19:47] VITALS: TEMP 97.8
[2020-03-20 20:12] VITALS: O2SAT 95
[2020-03-20 20:14] VITALS: BP 167/84
== END 2020-03-20 16:25 | disposition short-term general hospital (02) ==
LOC: ER 07:35
PROC: 0SSBXZZ Reposition Left Hip Joint, External Approach (ICD-10-PCS; principal; 2020-03-20)
DX: T84.021A Dislocation of internal left hip prosthesis, initial encounter (principal); F03.90 Unspecified dementia, unspecified severity, without behavioral disturbance, psychotic disturbance, mood disturbance, and anxiety; W18.11XA Fall from or off toilet without subsequent striking against object, initial encounter; Y93.89 Activity, other specified; Y92.9 Unspecified place or not applicable; Z79.82 Long term (current) use of aspirin; Z20.828 Contact with and (suspected) exposure to other viral communicable diseases; I50.9 Heart failure, unspecified
CPT/HCPCS: 93005; 85025; 80048; 36415; 86900; 86850; 85610; 86901; 85730; 81003; 70450; 72125; 71260; 74177; 73060; 73552; 51702; 96375; 96374; 99285; 27257; U0003; Q9967; J2704; J3010; J2270 ×4; J7040 ×2; J2405

== ENCOUNTER 2020-04-15 18:33 | Observation (INO) | payer OTHER ==
--- OUTSIDE RECORDS SUMMARY | 2020-04-15 18:36 | XMS REPORT | Clinical Summary ---
:1935 Author Organization [facility] Address [address] [place] [address] Care Team Providers Name Role Phone Ana Cristina Primary Care Provider Allergies No Known Allergies Medications Medication Sig Dispensed Refills Start Date End Date Status acetaminophen Take 650 mg 0 Acti ve (TYLENOL) 325 MG by mouth. tablet aspirin 81 MG Take 81 mg 0 Activ e chewable tablet by mouth. docusate sodium Take 100 mg 0 Ac tive (COLACE) 100 MG by mouth. capsule ferrous sulfate 325 Take 325 mg 0 Active (65 FE) MG EC by mouth. tablet lisinopriL Take 20 mg 0 Active (PRINIVIL,ZESTRIL) by mouth 2 20 MG tablet (two) times daily . melatonin 3 mg Tab Take 6 mg by 0 Active tablet mouth nightly . OXcarbazepine Take 300 mg 0 Acti ve (TRILEPTAL) 150 MG by mouth 2 tablet (two) times daily . QUEtiapine Take 25 mg 0 07/08/2019 Active (SEROquel) 25 MG by mouth. tablet risperiDONE Take 0.5 mg 0 Active (RisperDAL) 0.5 MG by mouth. tablet sertraline (ZOLOFT) Take 25 mg 0 Active 25 MG tablet by mouth. tamsulosin (FLOMAX) Take 0.8 mg 0 Active 0.4 mg Cap 24 hr by mouth. capsule traZODone (DESYREL) Take 50 mg 0 Active 50 MG tablet by mouth nightly . rivastigmine Place 1 0 Active (EXELON) 4.6 mg/24 patch onto hr patch the skin daily. atorvastatin Take 1 90 tablet 0 03/23/2020 Active (LIPITOR) 10 MG tablet (10 1 tablet mg total) by mouth daily. furosemide (LASIX) Take 20 mg 0 Discontinued 20 MG tablet by mouth Per 0 (Err or) EMT, patient is on Lasix, unknown dose, patient doesn't know his meds. . atorvastatin Take 1 0 03/23/2020 Discon tinued (LIPITOR) 10 MG tablet (10 0 tablet mg total) by mouth daily. levoFLOXacin Take 1 4 tablet 0 03/24/2020 Discon tinued (LEVAQUIN) 500 MG tablet (500 0 tablet mg total) by mouth daily for 4 days. levoFLOXacin Take 1 4 tablet 0 03/24/2020 d (LEVAQUIN) 500 MG tablet (500 0 tablet mg total) by mouth daily for 4 days. Active Problems Problem Noted Date Dislocation of left hip, initial encounter 03/20/2020 Chest pain 08/03/2016 Positive D dimer 08/03/2016 Leg swelling 08/03/2016 Hypertension Encounters Date Type Specialty Care Team Description 03/20/2020 - Hospital Encounter General Internal Anita, Dislo cation of left hip, initial encounter (HCC) (Primary Dx); 03/23/2020 Medicine Gricel Evans, Dislocation of left shoulder joint, initial encounter; Cerebrovascular accident (CVA), unspecif ied mechanism ([facility]); Tia, Essential hyper tension; MD Trever Dementia with behavioral disturbance, un specified dementia type ([facility]); Brinda Cabral Encephalopa thy acute MD Tanisha 03/20/2020 Travel 03/20/2020 Documentation Internal Efrain Camraa, Medicine Melony Bernard MD 03/20/2020 Hospital Encounter after 04/15/2019 Social History Tobacco Use Types Packs/Day Years Used Date Never Smoker Smokeless Tobacco: Never Used Alcohol Use Drinks/Week oz/Week Comments No Sex Assigned at Date Recorded Not on file COVID-19 Exposure Response Date Recorded In the last month, have you been in contact with No / Unsure 03/20/2020 7:12 PM [employer] someone who was confirmed or suspected to have Coronavirus / COVID-19? Last Filed Vital Signs Vital Sign Reading Time Taken Comments Blood Pressure 150/70 03/23/2020 11:33 AM [employer] Pulse 85 03/23/2020 11:33 AM [employer] Temperature 36.6 C (97.9 F) 03/23/2020 11:33 AM [employer] Respiratory Rate 18 03/23/2020 11:33 AM [employer] Oxygen Saturation 96% 03/23/2020 11:33 AM [employer] Inhaled Oxygen Concentration 21% 03/20/2020 9:53 PM [employer] Weight 90.7 kg (200 lb) 03/20/2020 5:38 PM [employer] Height 182.9 cm (6' 0.01") 03/21/2020 1:30 AM [employer] Body Mass Index 27.12 03/20/2020 5:38 PM [employer] Plan of Treatment Health Maintenance Due Date Last Done Comments PNEUMOCOCCAL 65+ YRS (1 of 1 - [id number]) 1998 MEDICARE ANNUAL WELLNESS (YEAR 2 or FIRST YEAR if no 12/05/1999 IPPE) INFLUENZA VACCINE (#1) 2020 Procedures Procedure Name Priority Date/Time Associated Comments Diagnosis (CELLAVISION MANUAL Routine 03/22/2020 4:06 Resu lts for this DIFF) AM [employer] procedure are i n the results section. CBC W/PLT COUNT & Routine 03/22/2020 4:06 Result s for this AUTO DIFFERENTIAL AM [employer] procedure are in the results section. BASIC METABOLIC PANEL Routine 03/22/2020 4:06 Re sults for this (7) AM [employer] procedure are i n the results section. CBC W/PLT COUNT & Routine 03/22/2020 4:06 Result s for this AUTO DIFFERENTIAL AM [employer] procedure are in the results section. 2D ECHO W/ DOPPLER Routine 03/21/2020 8:08 Resul ts for this (CW/PW/COLOR) AM [employer] procedure are in the results section. URINALYSIS W/ REFLEX Routine 03/21/2020 5:24 Res ults for this URINE CULTURE AM [employer] procedure are in the results section. URINE CULTURE Routine 03/21/2020 5:24 Results fo r this AM [employer] procedure are i n the results section. CBC W/PLT COUNT & Routine 03/21/2020 4:14 Result s for this AUTO DIFFERENTIAL AM [employer] procedure are in the results section. RPR Routine 03/21/2020 4:14 Results for this AM [employer] procedure are i n the results section. C-REACTIVE PROTEIN Routine 03/21/2020 4:14 Resul ts for this AM [employer] procedure are i n the results section. VITAMIN B12 AND Routine 03/21/2020 4:14 Results for this FOLATE AM [employer] procedure are i n the results section. LIPID PANEL Routine 03/21/2020 4:14 Results for this AM [employer] procedure are i n the results section. TSH/FREE T4 IF Routine 03/21/2020 4:14 Results f or this INDICATED AM [employer] procedure are i n the results section. HEMOGLOBIN A1C Routine 03/21/2020 4:14 Results f or this AM [employer] procedure are i n the results section. PROTHROMBIN TIME/INR Routine 03/21/2020 4:14 Res ults for this AM [employer] procedure are i n the results section. CBC W/PLT COUNT & Routine 03/21/2020 4:14 Result s for this AUTO DIFFERENTIAL AM [employer] procedure are in the results section. PHOSPHORUS Routine 03/21/2020 4:14 Results for this AM [employer] procedure are i n the results section. MAGNESIUM Routine 03/21/2020 4:14 Results for this AM [employer] procedure are i n the results section. HEPATIC FUNCTION Routine 03/21/2020 4:14 Results for this PANEL AM [employer] procedure are i n the results section. BASIC METABOLIC PANEL Routine 03/21/2020 4:14 Re sults for this (7) AM [employer] procedure are i n the results section. SARS-COV2/RT-PCR STAT 03/21/2020 12:02 Results for this ([facility] REF LABS) AM [employer] procedure are in the results section. CT/CTA CAROTID STAT 03/20/2020 11:40 Results f or this PM [employer] procedure are i n the results section. CTA BRAIN STAT 03/20/2020 11:40 Results for this PM [employer] procedure are i n the results section. XR HIP 2 VIEWS LEFT STAT 03/20/2020 10:29 Resu lts for this PM [employer] procedure are i n the results section. CBC W/PLT COUNT & STAT 03/20/2020 7:23 Result s for this AUTO DIFFERENTIAL PM [employer] procedure are in the results section. BASIC METABOLIC PANEL STAT 03/20/2020 7:23 Re sults for this (7) PM [employer] procedure are i n the results section. PROTHROMBIN TIME/INR STAT 03/20/2020 7:23 Res ults for this PM [employer] procedure are i n the results section. PT/APTT STAT 03/20/2020 7:23 Results for this PM [employer] procedure are i n the results section. CBC W/PLT COUNT & STAT 03/20/2020 7:23 Result s for this AUTO DIFFERENTIAL PM [employer] procedure are in the results section. XR SHOULDER LEFT STAT 03/20/2020 6:33 Results for this COMPLETE MIN 2 VIEWS PM [employer] procedu re are in the results section. PROCEDURAL SEDATION Routine 03/20/2020 6:22 Resu lts for this PM [employer] procedure are i n the results section. XR PELVIS 1 OR 2 STAT 03/20/2020 5:45 Results for this VIEWS PM [employer] procedure are i n the results section. after 04/15/2019 Results Manual Differential (03/22/2020 4:06 AM [employer]) Pathologist Sig nature % Neutros 85 % [facility] % Lymphs 3 % [facility] % Monos 11 % [facility] % Atypical Lymphs 1 (H) 0 - 0 % [facility] # Neutros 11.99 (H) 1.78 - 5.38 K/ul [facility] # Lymphs 0.42 (L) 1.32 - 3.57 K/ul [facility] # Monos 1.55 (H) 0.30 - 0.82 K/uL [facility] # Atypical Lymphs 0.14 (H) 0.00 - 0.00 K/uL [facility] Total Counted 100 [facility] WBC Morphology Normal [facility] Giant Platelet Present [facility] Large Platelet Present [facility] Hypochromia 1+ few [facility] Anisocytosis 1+ few [facility] Poikilocytes 1+ few [facility] Spherocytes 1+ few [facility] Artifact Present [facility] Platelet Conc Adequate [facility] Specimen Blood Narrative Performed At Form Setter/Driver ETIENNE - Courtney Arce [facility] User comments: Slide comments: Performing Organization Address City/State/Zipcode Phone Number [facility] [address] [address] [place] CBC with platelet count + automated diff (03/22/2020 4:06 AM [employer])Only the most recent of3 resultswithin the time period is included. Pathologist Sig nature WBC 14.1 (H) 3.5 - 10.5 K/L [facility] RBC 3.28 (L) 4.63 - 6.08 M/L [facility] Hemoglobin 10.3 (L) 13.7 - 17.5 GM/DL [facility] Hematocrit 31.9 (L) 40.1 - 51.0 % [facility] MCV 97.3 (H) 79.0 - 92.2 fL [facility] MCH 31.4 25.7 - 32.2 pg [facility] MCHC 32.3 32.3 - 36.5 GM/DL [facility] RDW 13.6 11.6 - 14.4 % [facility] Platelets 223 150 - 450 K/CU MM [facility] MPV 10.2 9.4 - 12.4 fL [facility] nRBC 0 0 - 0 /100 WBC [facility] Specimen Blood Performing Organization Address City/State/Zipcode Phone Number [address] [address] [place] Basic Metabolic Panel (03/22/2020 4:06 AM [employer])Only the most recent of3 results within the time period is included. Sodium 139 136 - 145 meq/L [facility] Potassium 4.0 3.5 - 5.1 meq/L [facility] Chloride 105 98 - 107 meq/L [facility] CO2 28 22 - 29 meq/L [facility] BUN 23 (H) 7 - 21 mg/dL [facility] Creatinine 1.19 0.57 - 1.25 [facility] mg/dL [facility] Glucose 117 (H) 70 - 105 mg/dL [facility] Calcium 8.3 (L) 8.4 - 10.2 [facility] mg/dL [facility] EGFR 58Comment: ESTIMATED mL/min/1.[address] [facility] GFR IS NOT m [facility] EM[facility]ENCY [facility]PART[facility] ACCURATE [place] CREATININE CLEARANCE IN PREDICTING GLOMERULAR FILTRATION RATE. ESTIMATED GFR IS NOT APPLICABLE FOR DIALYSIS PATIENTS. Specimen Blood Narrative Performed At Form Setter/Driver ID - [facility] Performing Organization Address City/State/Zipcode Phone Number [facility] [address] [place] [address] CENTER 2D Echo W/Doppler(CW/PW/Color) (03/21/2020 8:08 AM [employer]) Pathologist Sig nature Ejection Fraction [facility] ECHO [facility] Specimen Narrative Performed At Transthoracic Echocardiography Report (T TE) [facility] Demographics Patient Name ANGEL VASQUEZ Date of Study 03/21/2020 Gender Male Visit Number [id number] Race Unknown Room Number 1547 Number Date of 1935 Referring Physician Trever Weber Age 84 year(s) [employer] 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 [facility] Physician Procedure Type of Study TTE procedure:2DECHO W DOPPLER(CW/PW/COLOR) (Routine) Indications:Stroke work up. Clinical History Anemia, CHF, HTN, Infective Myocarditis, PVD HGB 12.3 HCT 37.2 % Contrast Medium: Definity. Height: 72 inches Weight: 90.72 kg (200 lbs) BSA: 2.13 m^2 BMI: 27.12 kg/m^2 HR: 101 bpm BP: 143/80 mmHg Summary LV endocardium is incompletely visualized despite IV ultrasound enhancing agent. The left ventricle is chamber size (by PSLAX dimension) is normal (male - LVIDd 4.2-5.8cm) . Difficult to assess segmental wall motion; overall LV systolic function appears normal based on available views. LVEF is > 60% by qualitative assessment Technically fair exam. Previous Study No prior studies available for comparis on. Signature Findings Technical Quality: Technically difficult exam. Left Ventricle LV endocardium is incompletely visualized despite IV ultrasound enhancing agent. The left ventricle is chamber size (by PSLAX dimension) is normal (male - LVIDd 4.2-5.8cm) . Difficult to assess segmental wall motion; overall LV systolic function appears normal based on available views. LVEF is > 60% by qualitative assessment. Degree of diasto lic dysfunction (LAP assessment) is inconclusive due to arrh ythmia . Left Atrium LA is incompletely visualized, size based on linear jayne urement. LA size is mildly enlarged . Right Ventricle The right ventricular chamber size and systolic function are within normal limits by limited views. Right Atrium RA size is probably normal based on available view s. Atrial Septum IV saline contrast injection was technically inadequate to detect a PFO (patent foramen ovale) at rest and post Valsalva . Aortic Valve Normal AoV structure and function by limited views and Doppler. Mitral Valve Moderate mitral annular calcification. Mild MV leaflet thickening. Tricuspid Valve TV structure is normal. Mild tricuspid regurgitation. Estimated peak systolic PA pressure is 27 mmHg + RA pressure. (RA pressure indeterminate on this exam) Pulmonic Valve PV is not well visualized. Aorta Aortic root size (SInus of Valsalva diameter) is indeterminate (not well seen) . Pericardium No significant pericardial effusion is visualized. IVC/SVC/PA/PV/Pleural The inferior vena cava is not well visualized. Chambers/Structures Left Atrium LA Dimension: 4.55 cm Left Ventricle LVIDd: 4.63 cm Doppler/Quantitative Measurements Aortic Valve Peak Velocity: 1.24 m/s Mean Velocity: 0.88 m/s Peak Gradient: 6.19 mmHg Mean Gradient: 3.51 mmHg AV VTI: 19.3 cm AV DVI: 0.84 LVOT Peak Velocity: 1 m/s Peak Gradient: 3.98 mmHg Mean Velocity: 0.68 m/s Mean Gradient: 2.15 mmHg LVOT VTI: 16.25 cm Tricuspid Valve TR Velocity: 2.63 m/s TR Gradient: 27.74 mmHg Procedure Note Interface, External Ris In - 03/21/2020 5:23 PM [employer] Transthoracic Echocardiography Report (TTE) Demographics Patient Name ANGEL VASQUEZ Date of Study 03/21/2020 Gender Male Visit Number [id number] Race Unknown Room [place] [address] Number Date of 1935 Referri Physician rTever Weber Age 84 year(s) 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 Clinical History Anemia, CHF, HTN, Infective Myocarditis, PVD HGB 12.3 HCT 37.2 % Contrast Medium: Definity. Height: 72 inches Weight: 90.72 kg (200 lbs) BSA: 2.13 m^2 BMI: 27.12 kg/m^2 HR: 101 bpm BP: 143/80 mmHg Summary LV endocardium is incompletely visualiz ed despite IV ultrasound enhancing agent. The left ventricle is chamber si ze (by PSLAX dimension) is normal (male - LVIDd 4.2-5.8cm) . Difficult to assess segmental wall motion; overall LV systolic function appears no rmal based on available views. LVEF is > 60% by qualitative assessment Technically fair exam. Previous Study No prior studies available for comparis on. Signature Findings Technical Quality: Technically difficult exam. Left Ventricle LV endocardium i s incompletely visualized despite IV ultrasound en hancing agent. The left ventricle is chamber size (by PSLAX dimension) is normal (male - LVIDd 4. 2-5.8cm) . Difficult to assess segmental wall m otion; overall LV systolic function appears normal b ased on available views. LVEF is > 60% by qualitati ve assessment. Degree of diastolic dysfunction (LAP assessment) is inconclusive due to arrhythmia . Left Atrium LA is incomplete ly visualized, size based on linear measurement. LA size is mildl y enlarged . Right Ventricle The right ventri cular chamber size and systolic function are wit hin normal limits by limited views. Right Atrium RA size is proba valarie normal based on available views. Atrial Septum IV saline contra st injection was technically inadequate to de tect a PFO (patent foramen ovale) at rest and post Valsalva . Aortic Valve Normal AoV struc ture and function by limited views and Doppler. Mitral Valve Moderate mitral annular calcification. Mild MV leaflet thickening. Tricuspid Valve TV structure is normal. Mild tricuspid r egurgitation. Estimated peak s ystolic PA pressure is 27 mmHg + RA pressure. (RA pr essure indeterminate on this exam) Pulmonic Valve PV is not well v isualized. Aorta Aortic root size (SInus of Valsalva diameter) is indeterminate (n ot well seen) . Pericardium No significant p ericardial effusion is visualized. IVC/SVC/PA/PV/Pleural The inferior emery a cava is not well visualized. Chambers/Structures Left Atrium LA Dimension: 4.55 cm Left Ventricle LVIDd: 4.63 cm Doppler/Quantitative Measurements Aortic Valve Peak Velocity: 1.24 m/s Me an Velocity: 0.88 m/s Peak Gradient: 6.19 mmHg Me an Gradient: 3.51 mmHg AV VTI: 19.3 cm AV DVI: 0.84 LVOT Peak Velocity: 1 m/s Pea k Gradient: 3.98 mmHg Mean Velocity: 0.68 m/s Jacquelin n Gradient: 2.15 mmHg LVO T VTI: 16.25 cm Tricuspid Valve TR Velocity: 2.63 m/s TR Gradient: 27.74 mmHg Performing Organization Address [facility]/Zipcode Phone Number [facility] Urinalysis w/Microscopic + Reflex to Culture (03/21/2020 5:24 AM [employer]) Color, UA Yellow [facility] Clarity, UA Clear [facility] Specific [place], >1.050 (H) 1.001 - 1.035 [facility] pH, UA 5.5 5.0 - 8.0 [facility] Protein, UA 20 mg/dL (A) Negative [facility] Glucose, UA Negative Negative [facility] Ketones, UA Negative Negative [facility] Bilirubin, UA Negative Negative [facility] Blood, UA Moderate (A) Negative [facility] Nitrite, UA Negative Negative [facility] Leukocytes, UA Moderate (A) Negative [facility] Urobilinogen, UA 2.0 (H) 0.2 - 1.0 mg/dL [facility] RBC, UA 73 /HPF [facility] WBC, UA 28 /HPF [facility] Bacteria, UA Occasional [facility] Mucus Occasional [facility] Squam Epithel, UA <1 /HPF [facility] Specimen Source [facility] Specimen Urine Narrative Performed At Form Setter/Driver ID - [auto] [facility] Form Setter/Driver ID - tech Performing Organization Address City/State/Zipcode Phone Number [address] [address] [place] Urine culture (03/21/2020 5:24 AM [employer]ERSON) Pathologist Sig nature Result No growth [facility] Specimen Urine - Urine (substance) Performing Organization Address [facility] Cent[facility] Phone Number [address] [address] [place] Vitamin B12 and Folate (03/21/2020 4:14 AM [employer]) Pathologist Sig nature Vitamin B12 289 213 - 816 pg/mL [facility] Folate 12.60 >=7.00 ng/mL [facility] Specimen Blood Narrative Performed At Form Setter/Driver ID - [facility] Performing Organization Address [facility] [place] Number [address] [address] [place] TSH/Free T4 If Indicated (03/21/2020 4:14 AM [employer]) Pathologist Sig nature TSH 2.831 0.350 - 4.940 uIU/mL [facility] Specimen Blood Narrative Performed At Form Setter/Driver ID - [facility] Performing Organization Address [facility] [place] Phone Number [address] [address] [place] C-Reactive Protein (03/21/2020 4:14 AM [employer]) Pathologist Sig nature CRP 6.14 (H) 0.00 - 0.50 mg/dL [facility] Specimen Blood Narrative Performed At Form Setter/Driver ID - [facility] Performing Organization Address [facility] Centercode Phone Number [address] [address] CENTER RPR (03/21/2020 4:14 AM [employer]ERSON) Pathologist Sig nature RPR Nonreactive Nonreactive [facility] Specimen Blood Performing Organization Address City/[facility]/Zipcode Phone Number [address] [address] CENTER Prothrombin time/INR (03/21/2020 4:14 AM [employer])Only the most recent of2 results within the time period is included. Pathologist Sig nature Protime 15.8 (H) 11.9 - 14.2 seconds [facility] INR 1.30 <=5.90 [facility] Specimen Blood Narrative Performed At Effective 09/30/2018: PT Reference Range [facility] Change New: 11.9-14.2 Previous: 11.7-14.7 RECOMMENDED COUMADIN/WARFARIN INR THERAPY RANGES STANDARD DOSE: 2.0-3.0 Includes: PROPHYLAXIS for venous thrombosis, systemic embolization; TREATMENT for venous thrombosis and/or pulmonary embolus. HIGH RISK: Target INR is 2.5-3.5 for patients wiht mechanical heart valves. Performing Organization Address [facility] Cent[facility]ode Phone Number [address] [address] C[place] Phosphorus (03/21/2020 4:14 AM [employer] SAL[employer]ERSON) Pathologist Sig nature Phosphorus 3.4 2.3 - 4.7 mg/dL [facility] Specimen Blood Narrative Performed At Form Setter/Driver ID - [facility] Performing Organization Address City/[facility]/Zipcode Phone Number [address] [address] CENTER Magnesium (03/21/2020 4:14 AM [employer]ERSON) Pathologist Sig nature Magnesium 1.8 1.6 - 2.6 mg/dL [facility] Specimen Blood Narrative Performed At Form Setter/Driver ID - [facility] Performing Organization Address City/[facility]/Zipcode Phone Number [address] [place] [phone] [place] Hemoglobin A1c (03/21/2020 4:14 AM [employer] SAL[employer]ERSON) Pathologist Sig [facility] Hemoglobin A1C 5.7 4.3 - 6.1 % [facility] Specimen Blood Performing Organization Address [facility]/Zipcode Phone Number [address] [address] [place] Hepatic function panel (03/21/2020 4:14 AM [employer] SAL[employer]ERSON) Pathologist Sig [facility] Protein, Total 6.1 6.0 - 8.3 gm/dL [facility] Albumin 3.2 (L) 3.5 - 5.0 g/dL [facility] Total Bilirubin 0.8 0.2 - 1.2 mg/dL [facility] Bilirubin, Direct 0.4 0.1 - 0.5 mg/dL [facility] Alkaline Phosphatase 76 40 - 150 U/L [facility] AST 34 5 - 34 U/L [facility] ALT 19 6 - 55 U/L [facility] Specimen Blood Narrative Performed At Form Setter/Driver ETIENNE [facility] [place] Performing Organization Address City/[place] [facility]/Zipcode Phone Number [address] [address] [place] Lipid panel (03/21/2020 4:14 AM [employer] SAL[employer]) Pathologist Sig nature Triglycerides 51 mg/dL [facility] Cholesterol 122 mg/dL [facility] [place] HDL 43 mg/dL [facility] [place] LDL Calculated 69 mg/dL [facility] [place] Specimen Blood Narrative Performed At Triglyceride Reference Range: [facility] Low Risk <150 Borderline 150-199 High Risk 200-499 Very High Risk >=500 Cholesterol Reference Range: Low Risk <200 Borderline 200-239 High Risk >240 HDL Cholesterol Reference Range: Low Risk >=60 High Risk <40 LDL Cholesterol Reference Range: Optimal <100 Near Optimal 100-129 Borderline 130-159 High 160-189 Very High >=190 Form Setter/Driver ID - [id number] Performing Organization Address City/State/Zipcode Phone Number SHAYLA MALDONADO [facility] [address] [place] [address] CENTER SARS-CoV2/RT-PCR (Asymptomatic ONLY) (03/21/2020 12:02 AM [employer] SAL[employer]) SARS-COV2/RT-PCR Negative Not Detected, SHAYLA MALDONADO Negative, See [facility] external report CENTER for linked test SARS-COV-2 [facility] AN[facility]ELA SHAYLA GUAJARDO PERFORMING LAB [facility] Specimen Other - Nasopharyngeal wall structure (b ginny structure) Narrative Performed At Negative result for this test determines that [facility] ST Jose R [facility] SARS-CoV-2 RNA was not present in the specimen above the Limit of Detection (LOD). However, Negative results do not preclude SARS-CoV-2 infection and should not be used as the sole basis for treatment or patient management decisions. Negative results must be combined with clinical observations, patient history, and epidemiological information. A false negative result may occur if a specimen is improperly collected, transported or handled. A false negative result should be considered if patient's recent exposures or clinical presentation indicate that COVID-19 (SARS-CoV-2) is likely and diagnostic tests for other causes of illness are negative. Re-testing should be considered in cases of suspected false negatives. The limit of detection for this assay is 800 copies/mL. This SARS CoV-2 test is a real-time RT-PCR test intended for the qualitative detection of nucleic acid from SARS-CoV-2 in a nasopharyngeal swab specimen collected from individuals suspected of COVID-19 by their healthcare provider. This test has not been Food and Drug Administration (FDA) cleared or approved. This is a modified version of an approved Emergency Use Authorization (EUA) and is in the process of review by the FDA. Once authorized by the FDA, the issued EUA will be effective until the declaration that circumstances exist justifying the authorization of the emergency use of in vitro diagnostic tests for detection and/or diagnosis of COVID-19 is terminated under Section 564(b)(2) of the Act or the EUA is revoked under Section 564(g) of the Act. Fact Sheet for Healthcare Providers: https://www.[employer]/sites/default/files/pro duct/documents/Fact_Sheet_HC_Providers_Ly_SA RS-CoV-2.pdf Fact Sheet for Healthcare Patients: https://www.[employer]/sites/default/files/pro duct/documents/Fact_Sheet_Patients_Lyra_SARS-C oV-2.pdf Performing Laboratory: [address] [address] Performing Organization Address City/State/Zipcode Phone Number [address] [address] CENTER CTA carotid (03/20/2020 11:40 PM [employer] SAL[employer]) Specimen Narrative Performed At Addendum [facility] REPORT STATUS:A The following addendum is being made to comply with coding criteria, and does not substantially change the fi ndings or recommendations of the original report. TECHNIQUE: Noncontrast head CT was perfo rmed. CT angiogram of the head and neck was performed with intrave nous contrast. MIP and volume rendered reformatted images were obtaine d. This exam was performed according to our departmental dose optim ization program which includes automated exposure control, adj ustment of the mA and/or kV according to patient's size and/or use o f iterative reconstructive technique. Signed: Gretchen Fields MD Report Verified Date/Time: 03/21/2020 02:43:53 Addendum Ends FINAL REPORT EXAM: CT, CT Angio, Brain. CT Carotid Angio CLINICAL HISTORY: Neuro deficit, acute, stroke suspected COMPARISON: None. TECHNIQUE: Noncontrast head CT was perfo rmed. CT angiogram of the head and neck was performed with intrave nous contrast. MIP reformatted images were obtained. This e xam was performed according to our departmental dose optimization pr ogram which includes automated exposure control, adjustment o f the mA and/or kV according to patient's size and/or use of iterativ e reconstructive technique. Stenosis evaluation reported in complian ce with NASCET criteria. FINDINGS: Noncontrast CT head: There is generalize d parenchymal atrophy. There are moderate to severe white matter micr ovascular ischemic changes There is no acute intracranial hemorrhag e, extra-axial fluid collection, mass effect, herniation or h ydrocephalus. The basal cisterns are patent. There is no large demarcated acute territorial infarct. The visualized orbits are normal. There is mild paranasal sinus mucosal thickening. There is mild opacif ication of the bilateral mastoid tips. The skull base and calvari um are intact. CTA head: There is intracranial calcific atherosclerosis. There is good flow related enhancement of the tova ateral anterior, middle and posterior cerebral arteries and within t he basilar artery. The intracranial and skull base internal car otid arteries as well as the vertebral arteries demonstrate normal fl ow-related enhancement. There is no vessel occlusion or flow-cross iting stenosis. There is no aneurysm. CTA neck: The visualized aortic arch and great vessel origins are unremarkable except for calcific atheros clerosis. There are atherosclerotic calcifications of the bi lateral carotid bulbs and left proximal cervical internal carotid artery. There is good flow related enhancement o f the bilateral common and internal carotid arteries. The vertebral arteries are well visualized. There is no vessel occlusion or hemodynamically significant stenosis by NASCET criteria. The thyroid gland is nodular with a william nant 1.7 cm left thyroid nodule. There are multilevel degenerative change s of the visualized spine. There is a 3 mm anterolisthesis at C5/C6 . IMPRESSION: Noncontrast CT head: Moderate to severe white matter microvascular ischemic changes. No CT evidence of an a cute intracranial process. MRI may be performed if clinical suspici on for acute ischemia persists. CTA head: No vessel occlusion or flow-li miting stenosis. CTA neck: No vessel occlusion or hemod ynamically significant stenosis by NASCET criteria. 1.7 cm left thyroid nodule for which a nonemergent thyroid neck ultrasound is r ecommended for further evaluation. Signed: Gretchen Fields MD Report Verified Date/Time: 03/20/2020 23:55:04 Procedure Note Interface, External Ris In - 03/21/2020 2:46 AM [employer] Addendum Begins REPORT STATUS:A The following addendum is being made to comply with coding criteria, and does not substantially change the fi ndings or recommendations of the original report. TECHNIQUE: Noncontrast head CT was perfo rmed. CT angiogram of the head and neck was performed with intrave nous contrast. MIP and volume rendered reformatted images were obtaine d. This exam was performed according to our departmental dose optim ization program which includes automated exposure control, adj ustment of the mA and/or kV according to patient's size and/or use o f iterative reconstructive technique. Signed: Gretchen Fields MD Report Verified Date/Time: 03/21/2020 0 2:43:53 Addendum Ends FINAL REPORT EXAM: CT, CT Angio, Brain. CT Carotid A ngio CLINICAL HISTORY: Neuro deficit, acute, stroke suspected COMPARISON: None. TECHNIQUE: Noncontrast head CT was perfo rmed. CT angiogram of the head and neck was performed with intrave nous contrast. MIP reformatted images were obtained. This e xam was performed according to our departmental dose optimization pr ogram which includes automated exposure control, adjustment o f the mA and/or kV according to patient's size and/or use of iterativ e reconstructive technique. Stenosis evaluation reported in complian ce with NASCET criteria. FINDINGS: Noncontrast CT head: There is generalize d parenchymal atrophy. There are moderate to severe white matter micr ovascular ischemic changes There is no acute intracranial hemorrhag e, extra-axial fluid collection, mass effect, herniation or h ydrocephalus. The basal cisterns are patent. There is no large demarcated acute territorial infarct. The visualized orbits are normal. There is mild paranasal sinus mucosal thickening. There is mild opacif ication of the bilateral mastoid tips. The skull base and calvari um are intact. CTA head: There is intracranial calcific atherosclerosis. There is good flow related enhancement of the tova ateral anterior, middle and posterior cerebral arteries and within t he basilar artery. The intracranial and skull base internal car otid arteries as well as the vertebral arteries demonstrate normal fl ow-related enhancement. There is no vessel occlusion or flow-cross iting stenosis. There is no aneurysm. CTA neck: The visualized aortic arch and great vessel origins are unremarkable except for calcific atheros clerosis. There are atherosclerotic calcifications of the bi lateral carotid bulbs and left proximal cervical internal carotid artery. There is good flow related enhancement o f the bilateral common and internal carotid arteries. The vertebral arteries are well visualized. There is no vessel occlusion or hemodynamically significant stenosis by NASCET criteria. The thyroid gland is nodular with a william nant 1.7 cm left thyroid nodule. There are multilevel degenerative change s of the visualized spine. There is a 3 mm anterolisthesis at C5/C6 . IMPRESSION: Noncontrast CT head: Moderate to severe white matter microvascular ischemic changes. No CT evidence of an a cute intracranial process. MRI may be performed if clinical suspici on for acute ischemia persists. CTA head: No vessel occlusion or flow-li miting stenosis. CTA neck: No vessel occlusion or hemody namically significant stenosis by NASCET criteria. 1.7 cm left thyroid nodule for which a nonemergent thyroid neck ultrasound is r ecommended for further evaluation. Signed: Gretchen Fields MD Report Verified Date/Time: 03/20/2020 2 3:55:04 Performing Organization Address City/State/Zipcode Phone Number [employer] CTA brain (03/20/2020 11:40 PM [employer]) Specimen Narrative Performed At Addendum Begins [employer] REPORT STATUS:A The following addendum is being made to comply with coding criteria, and does not substantially change the fi ndings or recommendations of the original report. TECHNIQUE: Noncontrast head CT was perfo rmed. CT angiogram of the head and neck was performed with intrave nous contrast. MIP and volume rendered reformatted images were obtaine d. This exam was performed according to our departmental dose optim ization program which includes automated exposure control, adj ustment of the mA and/or kV according to patient's size and/or use o f iterative reconstructive technique. Signed: Gretchen Fields MD Report Verified Date/Time: 03/21/2020 02:43:53 Addendum Ends FINAL REPORT EXAM: CT, CT Angio, Brain. CT Carotid Angio CLINICAL HISTORY: Neuro deficit, acute, stroke suspected COMPARISON: None. TECHNIQUE: Noncontrast head CT was perfo rmed. CT angiogram of the head and neck was performed with intrave nous contrast. MIP reformatted images were obtained. This e xam was performed according to our departmental dose optimization pr ogram which includes automated exposure control, adjustment o f the mA and/or kV according to patient's size and/or use of iterativ e reconstructive technique. Stenosis evaluation reported in complian ce with NASCET criteria. FINDINGS: Noncontrast CT head: There is generalize d parenchymal atrophy. There are moderate to severe white matter micr ovascular ischemic changes There is no acute intracranial hemorrhag e, extra-axial fluid collection, mass effect, herniation or h ydrocephalus. The basal cisterns are patent. There is no large demarcated acute territorial infarct. The visualized orbits are normal. There is mild paranasal sinus mucosal thickening. There is mild opacif ication of the bilateral mastoid tips. The skull base and calvari um are intact. CTA head: There is intracranial calcific atherosclerosis. There is good flow related enhancement of the tova ateral anterior, middle and posterior cerebral arteries and within t he basilar artery. The intracranial and skull base internal car otid arteries as well as the vertebral arteries demonstrate normal fl ow-related enhancement. There is no vessel occlusion or flow-cross iting stenosis. There is no aneurysm. CTA neck: The visualized aortic arch and great vessel origins are unremarkable except for calcific atheros clerosis. There are atherosclerotic calcifications of the bi lateral carotid bulbs and left proximal cervical internal carotid artery. There is good flow related enhancement o f the bilateral common and internal carotid arteries. The vertebral arteries are well visualized. There is no vessel occlusion or hemodynamically significant stenosis by NASCET criteria. The thyroid gland is nodular with a william nant 1.7 cm left thyroid nodule. There are multilevel degenerative change s of the visualized spine. There is a 3 mm anterolisthesis at C5/C6 . IMPRESSION: Noncontrast CT head: Moderate to severe white matter microvascular ischemic changes. No CT evidence of an a cute intracranial process. MRI may be performed if clinical suspici on for acute ischemia persists. CTA head: No vessel occlusion or flow-li miting stenosis. CTA neck: No vessel occlusion or hemod ynamically significant stenosis by NASCET criteria. 1.7 cm left thyroid nodule for which a nonemergent thyroid neck ultrasound is r ecommended for further evaluation. Signed: Gretchen Fields MD Report Verified Date/Time: 03/20/2020 23:55:04 Procedure Note Interface, External Ris In - 03/21/2020 2:46 AM [employer] Addendum Begins REPORT STATUS:A The following addendum is being made to comply with coding criteria, and does not substantially change the fi ndings or recommendations of the original report. TECHNIQUE: Noncontrast head CT was perfo rmed. CT angiogram of the head and neck was performed with intrave nous contrast. MIP and volume rendered reformatted images were obtaine d. This exam was performed according to our departmental dose optim ization program which includes automated exposure control, adj ustment of the mA and/or kV according to patient's size and/or use o f iterative reconstructive technique. Signed: Gretchen Fields MD Report Verified Date/Time: 03/21/2020 0 2:43:53 Addendum Ends FINAL REPORT EXAM: CT, CT Angio, Brain. CT Carotid A ngio CLINICAL HISTORY: Neuro deficit, acute, stroke suspected COMPARISON: None. TECHNIQUE: Noncontrast head CT was perfo rmed. CT angiogram of the head and neck was performed with intrave nous contrast. MIP reformatted images were obtained. This e xam was performed according to our departmental dose optimization pr ogram which includes automated exposure control, adjustment o f the mA and/or kV according to patient's size and/or use of iterativ e reconstructive technique. Stenosis evaluation reported in complian ce with NASCET criteria. FINDINGS: Noncontrast CT head: There is generalize d parenchymal atrophy. There are moderate to severe white matter micr ovascular ischemic changes There is no acute intracranial hemorrhag e, extra-axial fluid collection, mass effect, herniation or h ydrocephalus. The basal cisterns are patent. There is no large demarcated acute territorial infarct. The visualized orbits are normal. There is mild paranasal sinus mucosal thickening. There is mild opacif ication of the bilateral mastoid tips. The skull base and calvari um are intact. CTA head: There is intracranial calcific atherosclerosis. There is good flow related enhancement of the tova ateral anterior, middle and posterior cerebral arteries and within t he basilar artery. The intracranial and skull base internal car otid arteries as well as the vertebral arteries demonstrate normal fl ow-related enhancement. There is no vessel occlusion or flow-cross iting stenosis. There is no aneurysm. CTA neck: The visualized aortic arch and great vessel origins are unremarkable except for calcific atheros clerosis. There are atherosclerotic calcifications of the bi lateral carotid bulbs and left proximal cervical internal carotid artery. There is good flow related enhancement o f the bilateral common and internal carotid arteries. The vertebral arteries are well visualized. There is no vessel occlusion or hemodynamically significant stenosis by NASCET criteria. The thyroid gland is nodular with a william nant 1.7 cm left thyroid nodule. There are multilevel degenerative change s of the visualized spine. There is a 3 mm anterolisthesis at C5/C6 . IMPRESSION: Noncontrast CT head: Moderate to severe white matter microvascular ischemic changes. No CT evidence of an a cute intracranial process. MRI may be performed if clinical suspici on for acute ischemia persists. CTA head: No vessel occlusion or flow-li miting stenosis. CTA neck: No vessel occlusion or hemody namically significant stenosis by NASCET criteria. 1.7 cm left thyroid nodule for which a nonemergent thyroid neck ultrasound is r ecommended for further evaluation. Signed: Gretchen Fields MD Report Verified Date/Time: 03/20/2020 2 3:55:04 Performing Organization Address City/State/Zipcode Phone Number [employer] XR hip 2 views left (03/20/2020 10:29 PM [employer]) Specimen Narrative Performed At FINAL REPORT [employer] RAD, HIP, 2-3 VIEWS, LEFT, TO INCL PELV IS WHEN PERFORMED CLINICAL INDICATION: post reduction COMPARISON: Left hip radiographs 020, 5:46 PM. FINDINGS: Frontal and crosstable frontal and lateral views of the left hip were obtained. There is a left total hip arthroplasty. There has been interval reduction of previously noted left hip d islocation. There is no periprosthetic fracture or loosening. Th ere is no acute fracture. There are degenerative changes of the vi sualized lower lumbar spine. The bilateral sacroiliac joints are montanez nt. The sacrum is partially obscured by overlying stool and bowel ga s. IMPRESSION: Interval reduction of previously noted l eft hip dislocation. Signed: Gretchen Fields MD Report Verified Date/Time: 03/20/2020 22:20:46 Procedure Note Interface, External Ris In - 03/20/2020 10:30 PM [employer] FINAL REPORT RAD, HIP, 2-3 VIEWS, LEFT, TO INCL PELV IS WHEN PERFORMED CLINICAL INDICATION: post reduction COMPARISON: Left hip radiographs 020, 5:46 PM. FINDINGS: Frontal and crosstable frontal and lateral views of the left hip were obtained. There is a left total hip arthroplasty. There has been interval reduction of previously noted left hip d islocation. There is no periprosthetic fracture or loosening. Th ere is no acute fracture. There are degenerative changes of the vi sualized lower lumbar spine. The bilateral sacroiliac joints are montanez nt. The sacrum is partially obscured by overlying stool and bowel ga s. IMPRESSION: Interval reduction of previously noted l eft hip dislocation. Signed: Gretchen Fields MD Report Verified Date/Time: 03/20/2020 2 2:20:46 Performing Organization Address City/State/Zipcode Phone Number [facility] PT/aPTT (03/20/2020 7:23 PM [employer]) Pathologist Sig nature Protime 15.2 (H) 11.9 - 14.2 seconds [facility] INR 1.23 <=5.90 [facility] PTT 28.1 22.5 - 36.0 seconds [facility] Specimen Blood Narrative Performed At Effective 09/30/2018: PT Reference Range [facility] Change New: 11.9-14.2 Previous: 11.7-14.7 RECOMMENDED COUMADIN/WARFARIN INR THERAPY RANGES STANDARD DOSE: 2.0-3.0 Includes: PROPHYLAXIS for venous thrombosis, systemic embolization; TREATMENT for venous thrombosis and/or pulmonary embolus. HIGH RISK: Target INR is 2.5-3.5 for patients wiht mechanical heart valves. Performing Organization Address City/State/Zipcode Phone Number [facility] [address] [place] [address] CENTER XR shoulder complete 2 views min left (03/20/2020 6:33 PM [employer]) Specimen Narrative Performed At FINAL REPORT GE RIS TECHNIQUE: Internal/external rotation vi ews of the left shoulder. INDICATION: L humeral subluxation. COMPARISON: None. IMPRESSION: No acute fracture or dislocation. 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 Internal and external rotation is maintained. Visualized left lung is clear. Soft tissues are grossly unremarkable. Signed: Johnson Cruz MD Report Verified Date/Time: 03/20/2020 19:29:37 Procedure Note Interface, External Ris In - 03/20/2020 7:31 PM [employer] FINAL REPORT TECHNIQUE: Internal/external rotation vi ews of the left shoulder. INDICATION: L humeral subluxation. COMPARISON: None. IMPRESSION: No acute fracture or dislocation. 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 Internal and external rotation is maintained. Visualized left lung is clear. Soft tissues are grossly unremarkable. Signed: Johnson Cruz MD Report Verified Date/Time: 03/20/2020 1 9:29:37 Performing Organization Address City/State/Zipcode Phone Number [facility] Procedural sedation (03/20/2020 6:22 PM [employer]) Narrative Performed At Gricel Howard MD 03/21 2:04 PM Procedural sedation Date/Time: 03/20/2020 11:03 PM Performed by: Amy Hein Authorized by: Gricel Howard MD Consent: Consent obtained: Written Indications: Sedation purpose: Dislocation reduc tion Procedure necessitating sedation perf ormed by: Different physician Pre-sedation assessment: Plan for sedation: Moderate (consci ous) sedation Reviewed: allergies reviewed, family history of anesthetic complications, medical history reviewed and patient summary reviewed NPO status: NPO NPO Time: > 4 hours Neck mobility: normal Mouth openin or more finger wid ths Mallampati score: II - soft palate, uvula, fauces visible Pre-sedation assessment completed: 03/20/2020 9:30 PM Procedure details (see MAR for exact dos ages): Patient reassessed immediately prior to administration/induction of sedation (BP, P, RR, O2, LOC) and I feel the patient is still an appropriate candidate for planned sedati on/analgesia Sedation start time: 03/20/2020 9:4 0 PM Preoxygenation: Nasal cannula Sedation: Ketamine Analgesia: None Intra-procedure monitoring: Blood p ressure monitoring, continuous capnometry, frequent LOC assessments, ca rdiac monitor, continuous pulse oximetry and frequent vital sign checks Intra-procedure events: hypoxia Intra-procedure management: Airway repositioning and supplemental oxygen Sedation end time: 03/20/2020 10:07 PM Total sedation time (minutes): 27 Post Sedation Evaluation: Respiration: airway patent and return ed to pre-procedure baseline Mental Status: returned to pre-proced ure baseline Cardiovascular Function: Returned t o pre-procedure baseline The following have been reviewed and returned to pr e-procedure baseline: RR, HR, pulse ox and BP XR pelvis 1 or 2 views (03/20/2020 5:45 PM [employer]) Specimen Narrative Performed At FINAL REPORT [facility] Clinical history: Left hip dislocation Technique: Single AP view of the pelvis obtained. FINDINGS: There are postsurgical changes from left hip arthroplasty with superior/lateral dislocation of the femo ral component in respect to the acetabular component. Hardware other lockwood appears intact without evidence for fracture. No other acute fracture or dislocation i s appreciated. There are degenerative changes of the visualized l umbosacral spine, bilateral SI joints, and right hip. No focal lytic or blastic abnormality is identified. The visualized intrapelvic c ontents are unremarkable. IMPRESSION: Left hip prosthesis dislocation as above . Signed: De Casas MD Report Verified Date/Time: 03/20/2020 18:16:09 Reading Location: [facility] B1 [id number] Consult R eading Room Procedure Note Interface, External Ris In - 03/20/2020 6:18 PM [facility] [employer] FINAL REPORT Clinical history: Left hip dislocation Technique: Single AP view of the pelvis obtained. FINDINGS: There are postsurgical changes from left hip arthroplasty with superior/lateral dislocation of the femo ral component in respect to the acetabular component. Hardware other lockwood appears intact without evidence for fracture. No other acute fracture or dislocation i s appreciated. There are degenerative changes of the visualized l umbosacral spine, bilateral SI joints, and right hip. No focal lytic or blastic abnormality is identified. The visualized intrapelvic c ontents are unremarkable. IMPRESSION: Left hip prosthesis dislocation as above . Signed: De Casas MD Report Verified Date/Time: 03/20/2020 1 8:16:09 Reading Location: [facility] B1 [id number] Consult R eading Room Performing Organization Address City/State/Zipcode Phone Number GE RIS after 04/15/2019 Insurance Payer Benefit Plan / Subscriber ID Effective Phone Address T ype Group Dates MEDICARE MEDICARE A B [id number] 1998-Prese Medicare nt HUMANA - HUMANA [id number] 2016-Prese Maps Contracted MEDICARE MGD MEDICARE ADV nt CARE Advance Directives For more information, please contact: [phone] Code Status Date Activated Date Inactivated Comments Full Code 03/21/2020 2:35 AM 03/23/2020 5:28 PM This code status was determined by: Patient Full Code 08/03/2016 3:43 AM 08/03/2016 10:27 PM This code status was determined by: Patient
--- OUTSIDE RECORDS SUMMARY | 2020-04-15 18:37 | XMS REPORT | Continuity of Care Document ---
:1935 Author Organization [facility] t Address [address] [place] [address] Care Team Providers Name Role Phone Sharpless Primary Care Physician César Howard MD Attending Clinician Tia GOODMAN Attending Clinician Denise Lopez MD Attending Clinician CÉSAR HOWARD Attending Clinician Unavailable Marco Antonio Andrade MD Attending Clinician [phone] STACY ELIZONDO Attending Clinician Unavailable DENISE LOPEZ Admitting Clinician Unavailable OSMAN CHANDRA Admitting Clinician Unavailable Payers Payer Name Policy Type Policy Effective Date Expiration Date Sour ce Number MEDICAREMEDICARE A [id number] 1998 SHAYLA Fitch [id number] 1998-P 00:00:00 - Medical resentMedicare Center [employer] - MEDICARE MGD [id number] 2016 SHAYLA Toro [facility] MEDICARE 00:00:00 - Med ical [id number] 2016-P Ce nter resentMaps Contracted Problems Condition Condition Condition Status Onset Resolution Last Treating Co mments Source Name Details Category Date Date Treatment Clinician Date Dislocatio Dislocatio Disease Active 2019-[address] n of left n of left 05-20 Masoud s - hip, hip, 00:00: Medical initial initial 00 Center encounter encounter Chest pain Chest pain Disease Active [facility] 08-03 [facility] - 00:00: Medical 00 Center Positive D Positive D Disease Active [facility] dimer dimer 08-[facility] Medical 00 [place] Leg Leg Disease Active [facility] swelling swelling 08-03 [facility] - 00:[facility]: Medical 00 [place] Hypertensi Hypertensi Disease Active [facility] on on [facility] Allergies, Adverse Reactions, Alerts This patient has no known allergies or adverse reactions. Social History Social Habit Start Date Stop Date Quantity Comments Source Sex Assigned At [facility] Exposure to Not sure [facility] SARS-CoV-2 [facility] (event) Tobacco use and 2020-03-21 2020-03-21 Never used [facility] - exposure 00:00:00 00:00:00 [facility] Alcohol intake 2020-03-21 2020-03-21 Current [facility] es - 00:00:00 00:00:00 non-drinker of Medical nter alcohol (finding) Smoking Status Start Date Stop Date Source Never smoker [facility] Medications Ordered Filled Start Stop Current Ordering Indication Dosage Frequency Signature Comments Components Source Medication Medication Date Date Medication? Clinician (SIG) Name Name levoFLOXaci 2019-05- No 500mg Q24H Take [address] n 1-20 24 tablet [facility] - (LEVAQUIN) 00:00: 23:59 (500 mg Med ical 500 MG 00 :00 total) by [place] tablet mouth daily for 4 days. levoFLOXaci 2019-05- No 500mg Q24H Take [address] [facility] -20 03-23 tablet [facility] - (LEVAQUIN) 00:00: 00:00 (500 mg Med ical 500 MG 00 :00 total) by [place] tablet mouth daily for 4 days. acetaminoph 2019-05 Yes 650mg Take [address] en 1-19 mg by [facility] - (TYLENOL) 15:28: mouth. Medica l 325 MG 45 [place] tablet aspirin 81 2019-05 Yes 81mg Take [address] MG chewable 1-19 by mouth. Jessica es - tablet 15:28: Medical 45 [place] docusate 2019-05 Yes 100mg Take [address] [facility] [address] sodium 1-19 mg by [facility] - (COLACE) 15:28: mouth. Medical 100 MG 45 [place] capsule ferrous 2019-05 Yes 325mg Take 325 [facility] sulfate 325 1-19 mg by [facility] - (65 FE) MG 15:28: mouth. Medic al EC tablet 45 Center lisinopriL 2019-05 Yes 20mg Q.5D Take [address] (PRINIVIL,Z -19 by mouth 2 [place] kes - ESTRIL) 20 15:28: (two) Medica l MG tablet 45 times Center daily . melatonin 3 2019-05 Yes 6mg QD Take [address] mg Tab 19 by mouth [facility] - tablet 15:28: nightly . Medica l 45 Center OXcarbazepi 2019-05 Yes 300mg Q.5D Take [address] ne 1-19 mg by [facility] - (TRILEPTAL) 15:28: mouth 2 Med ical 150 MG 45 (two) Center tablet times daily . risperiDONE 2019-05 Yes .5mg Take 0.[address] (RisperDAL) 1-19 mg by [facility] - 0.5 MG 15:28: mouth. Medical tablet 45 [place] sertraline 2019-05 Yes 25mg Take [address] (ZOLOFT) 25 19 by mouth. Ejssica es - MG tablet 15:28: Medical 45 [place] tamsulosin 2019-05 Yes .8mg Take 0.[address] [facility] (FLOMAX) 1-19 mg by [facility] - 0.4 mg Cap 15:28: mouth. Medic al 24 hr 45 [place] capsule traZODone 2019-05 Yes 50mg QD Take [address] (DESYREL) 19 by mouth [facility] - 50 MG 15:28: nightly . Medical tablet 45 [place] rivastigmin 2019-05 Yes 1{patch QD Place [address] [facility] [facility] e (EXELON) 05-23 } patch onto Jessica es - 4.6 mg/24 15:28: the skin Medi ascencion hr patch 45 daily. [place] furosemide 2019-05 2020- No 20mg Take [address] (LASIX) 20 05-23 by mouth Luke s - MG tablet 09:35: 00:00 Per EMT, Med ical 57 :00 patient is Center on Lasix, unknown dose, patient doesn't know his meds. . atorvastati 2019-05- Yes 10mg QD Take [address] n (LIPITOR) 05-23 tablet (10 L ukes - 10 MG 00:00: 23:59 mg total) Medica l tablet 00 :00 by mouth Center daily. atorvastati 2019-05 2020- No 10mg QD Take [address] [facility] n (LIPITOR) 05-23 tablet (10 L ukes - 10 MG 00:00: 00:00 mg total) Medica l tablet 00 :00 by mouth Center daily. QUEtiapine Yes 25mg Take [address] (SEROquel) 3-05 by mouth. Luke s - 25 MG 00:00: Medical tablet 00 Center Vital Signs Vital Name Observation Time Observation Value Comments Source Systolic blood 2020-03-23 11:33:00 150 mm[Hg] [facility] pressure [facility] Diastolic blood 2020-03-23 11:33:00 70 mm[Hg] [facility] S t [facility] Heart rate 2020-03-23 11:33:00 85 /min [facility] Body temperature 2020-03-23 11:33:00 36.61 [facility] Respiratory rate 2020-03-23 11:33:00 18 /min [facility] Oxygen saturation in 2020-03-23 11:33:00 96 /min [facility] Arterial blood by Medical Ce nter Pulse oximetry Body height 2020-03-21 01:30:00 182.9 cm [facility] Body weight 2020-03-20 17:38:00 90.719 kg [facility] BMI 2020-03-20 17:38:00 27.12 kg/m2 [facility] Procedures Procedure Date / Time Performed Performing Clinician [facility] e BASIC METABOLIC PANEL 2020-03-22 04:06:00 Brinda Lopez [facility] (7) [facility] CBC W/PLT COUNT & AUTO 2020-03-22 04:06:00 Brinda Lopez [facility] DIFFERENTIAL [facility] (CELLAVISION MANUAL 2020-03-22 04:06:[address] [facility] - DIFF) [facility] 2D ECHO W/ DOPPLER 2020-03-21 08:08:17 Trever Weber [facility] (CW/PW/COLOR) [facility] URINE CULTURE 2020-03-21 05:24:00 [facility] URINALYSIS W/ REFLEX 2020-03-21 05:24:00 [facility] URINE CULTURE [facility] BASIC METABOLIC PANEL 2020-03-21 04:14:00 [facility] (7) [facility] HEPATIC FUNCTION PANEL 2020-03-21 04:14:00 [facility] MAGNESIUM 2020-03-21 04:14:00 [facility] PHOSPHORUS 2020-03-21 04:14:00 [facility] PROTHROMBIN TIME/INR 2020-03-21 04:14:00 [facility] HEMOGLOBIN A1C 2020-03-21 04:14:00 [facility] TSH/FREE T4 IF INDICATED 2020-03-21 [facility] LIPID PANEL 2020-03-21 04:14:00 [facility] VITAMIN B12 AND FOLATE 2020-03-21 04:14:00 [facility] C-REACTIVE PROTEIN 2020-03-21 04:14:00 [facility] RPR 2020-03-21 04:14:00 [facility] CBC W/PLT COUNT & AUTO 2020-03-21 04:14:00 [facility] SARS-COV2/RT-PCR ([facility] & 2020-03-21 00:02:00 [facility] CTA BRAIN 2020-03-20 23:40[facility] 2020-03-20 23:40:00 [facility] XR HIP 2 VIEWS LEFT 2020-03-20 22:29:00 rGicel Howard [facility] S [facility] PT/APTT 2020-03-20 19:23:00 Amy Hein [facility] PROTHROMBIN TIME/INR 2020-03-20 19:23:00 Amy Hein [facility] BASIC METABOLIC PANEL 2020-03-20 19:23:00 Amy Hein [facility] - (7) [facility] CBC W/PLT COUNT & AUTO 2020-03-20 19:23:00 Melvina Amy MCGUIRE [facility] - DIFFERENTIAL [facility] XR SHOULDER LEFT 2020-03-20 18:33:00 Amy Hein [facility] s - COMPLETE MIN [address] [facility] [address] PROCEDURAL SEDATION 2020-03-20 18:22:28 Amy Hein [facility] XR PELVIS 1 OR 2 VIEWS 2020-03-20 17:45:00 Esteban Zapata [facility] Plan of Care Planned Activity Planned Date Details Comments Source Future Scheduled 2020-01-04 INFLUENZA VACCINE (#1) C [facility] - Test 00:00:00 [code = INFLUENZA Medical Ce nter VACCINE (#1)] Future Scheduled 1999-12-05 MEDICARE ANNUAL [facility] - Test 00:00:00 WELLNESS (YEAR 2 or Medical Center FIRST YEAR if no IPPE) [code = MEDICARE ANNUAL WELLNESS (YEAR 2 or FIRST YEAR if no IPPE)] Future Scheduled 1998 PNEUMOCOCCAL 65+ YRS [facility] - Test 00:00:00 (1 of 1 - [facility] Center [id number] PCV13) [code = PNEUMOCOCCAL 65+ YRS (1 of 1 - [id number] PCV13)] Results Test Description Test Time Test Comments Results Result Comments Source Urine culture 2020-03-23 08:58:00 Test Item Value Reference Range Interpretation Comme nts Result (test code = 6463-4) [facility] + automated [id number] 10:16:00 Test Item Value Reference Range Interpretation Comments WBC (test code = 6690-2) 14.1 3.5- 10.5 K/L H RBC (test code = 789-8) 3.28 4.63- 6.08 M/L L MCHC (test code = 786-4) 32.3 32.3- 36.5 GM/DL L Hematocrit (test code = 4544-3) 31.9 % 40.1-51 L MCV (test code = 787-2) 97.3 fL 79-92.2 H MCH (test code = 785-6) 31.4 pg 25.7-32.2 RDW (test code = 788-0) 13.6 % 11.6-14.4 Platelets (test code = 777-3) 223 150- 450 K/CU MM MPV (test code = 21680-5) 10.2 fL 9.4-12.4 nRBC (test code = 413) 0 0- 0 /100 WBC Lab Interpretation (test code = Abnormal 88972-8) [facility] [id number] 10:16:00 Test Item Value Reference Range Interpretation Comments % Neutros (test code = 85 % 2816) % Lymphs (test code = 3 % 2817) % Monos (test code = 11 % 2818) % Atypical Lymphs (test 1 % 0-0 H code = 2829) # Neutros (test code = 11.99 K/ul 1.78-5.38 H 2830) # Lymphs (test code = 0.42 K/ul 1.32-3.57 L 2831) # Monos (test code = 1.55 K/uL 0.3-0.82 H 2832) # Atypical Lymphs (test 0.14 K/uL 0-0 H code = 2858) Total Counted (test 100 code = 1351) WBC Morphology (test Normal code = 487) Giant Platelet (test Present code = 313) Large Platelet (test Present code = 2156) Hypochromia (test code 1+ few = 963) Anisocytosis (test code 1+ few = 961) Poikilocytes (test code 1+ few = 966) Spherocytes (test code 1+ few = 768) Artifact (test code = Present 3432) Platelet Conc (test Adequate code = 3438) ANGELA (test code = ANGELA) Machine Greaser ID - Courtney Thompson comments: Slide comments: Lab Interpretation Abnormal (test code = 94355-5) [facility] W/PLT COUNT & AUTO [id number] 10:16:00 Test Item Value Reference Range Interpretation Comments WHITE BLOOD CELL COUNT (BEAKER) 14.1 K/ L 3.5-10.5 H (test code = 775) RED BLOOD CELL COUNT (BEAKER) 3.28 M/ L 4.63-6.08 L (test code = 761) HEMOGLOBIN (BEAKER) (test code = 10.3 GM/DL 13.7-17.5 L 410) HEMATOCRIT (BEAKER) (test code = 31.9 % 40.1-51.0 L 411) MEAN CORPUSCULAR VOLUME (BEAKER) 97.3 fL 79.0-92.2 H (test code = 753) MEAN CORPUSCULAR HEMOGLOBIN 31.4 pg 25.7-32.2 (BEAKER) (test code = 751) MEAN CORPUSCULAR HEMOGLOBIN CONC 32.3 GM/DL 32.3-36.5 (BEAKER) (test code = 752) RED CELL DISTRIBUTION WIDTH 13.6 % 11.6-14.4 (BEAKER) (test code = 412) PLATELET COUNT (BEAKER) (test 223 K/CU MM 150-450 code = 756) MEAN PLATELET VOLUME (BEAKER) 10.2 fL 9.4-12.4 (test code = 754) NUCLEATED RED BLOOD CELLS 0 /100 WBC 0-0 (BEAKER) (test code = 413) (CELLAVISION MANUAL DIFF)2020-03-22 10:16:00 Test Item Value Reference Range Interpretation Comments NEUTROPHILS - REL 85 % (CELLAVISION)(BEAKER) (test code = 2816) LYMPHOCYTES - REL 3 % (CELLAVISION)(BEAKER) (test code = 2817) MONOCYTES - REL 11 % (CELLAVISION)(BEAKER) (test code = 2818) ATYPICAL LYMPHOCYTES - REL 1 % 0-0 H (CELLAVISION)(BEAKER) (test code = 2829) NEUTROPHILS - ABS 11.99 K/ul 1.78-5.38 H (CELLAVISION)(BEAKER) (test code = 2830) LYMPHOCYTES - ABS 0.42 K/ul 1.32-3.57 L (CELLAVISION)(BEAKER) (test code = 2831) MONOCYTES - ABS 1.55 K/uL 0.30-0.82 H (CELLAVISION)(BEAKER) (test code = 2832) ATYPICAL LYMPHOCYTES - ABS 0.14 K/uL 0.00-0.00 H (CELLAVISION)(BEAKER) (test code = 2858) TOTAL COUNTED (BEAKER) (test code 100 = 1351) WBC MORPHOLOGY (BEAKER) (test code Normal = 487) GIANT PLATELETS (BEAKER) (test Present code = 313) LARGE PLT(BEAKER) (test code = Present 2156) HYPOCHROMIA (BEAKER) (test code = 1+ few 963) ANISOCYTOSIS (BEAKER) (test code = 1+ few 961) POIKILOCYTES (BEAKER) (test code = 1+ few 966) SPHEROCYTES (BEAKER) (test code = 1+ few 768) ARTIFACT (CELLAVISION)(BEAKER) Present (test code = 3432) PLATELET CONCENTRATION Adequate (CELLAVISION)(BEAKER) (test code = 3438) Machine Greaser ID - Courtney Thompson comments: Slide comments:Basic Metabolic [id number] 05:24:00 Test Item Value Reference Range Interpretation Comments Sodium (test code = 139 meq/L 811-654 4195-2) Potassium (test code = 4.0 meq/L 3.5-5.1 2823-3) Chloride (test code = 105 meq/L 98-107 2075-0) CO2 (test code = 28 meq/L 22-29 2028-9) BUN (test code = 23 mg/dL 7-21 H 3094-0) Creatinine (test code 1.19 mg/dL 0.57-1.25 = 2160-0) Glucose (test code = 117 mg/dL 70-105 H 2345-7) Calcium (test code = 8.3 mg/dL 8.4-10.2 L 62379-5) EGFR (test code = 58 mL/min/1.73 [place] [address]-6) NOT ACCURATE CREATININE CLEARANCE IN PREDICTING GLOMERULAR FILTRATION RATE . ESTIMATED GFR I S NOT APPLICABLE FOR DIALYSIS PATIENTS. ANGELA (test code = ANGELA) Machine Greaser ID - EDASI Lab Interpretation Abnormal (test code = 81231-9) [facility] METABOLIC [id number] 05:24:00 Test Item Value Reference Range Interpretation Comments SODIUM (BEAKER) 139 meq/L 136-145 (test code = 381) POTASSIUM (BEAKER) 4.0 meq/L 3.5-5.1 (test code = 379) CHLORIDE (BEAKER) 105 meq/L 98-107 (test code = 382) CO2 (BEAKER) (test 28 meq/L 22-29 code = 355) BLOOD UREA NITROGEN 23 mg/dL 7-21 H (BEAKER) (test code = 354) CREATININE (BEAKER) 1.19 mg/dL 0.57-1.25 (test code = 358) GLUCOSE RANDOM 117 mg/dL 70-105 H (BEAKER) (test code = 652) CALCIUM (BEAKER) 8.3 mg/dL 8.4-10.2 L (test code = 697) EGFR (BEAKER) (test 58 mL/min/1.73 ESTIMA LEVI GFR IS code = 1092) sq m NOT ACCURATE CREATININE CLEARANCE IN PREDICTING GLOMERULAR FILTRATION RATE . ESTIMATED GFR I S NOT APPLICABLE FOR DIALYSIS PATIEN TS. 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 The left ventricle is chamber size (by PSLAX dimension) is normal (male - LVIDd 4.2- 5.8cm) . Difficult to assess segmental wallmotion; overall LV systolic function appears normal based on available views. LVEF is > 60% by qualitative assessment Technically fair exam. Previous Study No prior studies available for comparison. Signature Findings Technical Quality: Technically difficult exam. Left Ventricle LV endocardium is incompletely visualized despite IV ultrasound enhancing agent. The left ventricle is chamber size (by PSLAX dimension) is normal (male - LVIDd 4.2- 5.8cm) . Difficult to assesssegmental wall motion; overall LV systolic function appears normal based on available views. LVEF is > 60% by qualitative assessment. Degree of diastolic dysfunction (LAP assessment) is inconclusive due to arrhythmia . Left Atrium LA is incompletely visualized, size based on linear measurement. LA size is mildly enlarged . Right Ventricle The right ventricular chamber size and systolic function are within normal limits by limited views. Right Atrium RA size is probably normal based on available views. Atrial Septum IV saline contrast injection was [...] Velocity: 1.24 m/s Mean Velocity: 0.88 m/s PeakGradient: 6.19 mmHg Mean Gradient: 3.51 mmHg AV VTI: 19.3 cm AV DVI: 0.84 LVOT Peak Velocity: 1 m/s Peak Gradient: 3.98 mmHg Mean Velocity: 0.68 m/s Mean Gradient: 2.15 mmHg LVOT VTI: 16.25 cm Tricuspid Valve TR Velocity:2.63 m/s TR Gradient: 27.74 mmHgWh[facility] CenterARS-CoV2/RT-PCR (Asymptomatic ONLY)2020-03-21 12:40:00 Test Item Value Reference Range Interpretation Comments SARS-COV2/RT-PCR Negative Not Detected, (test code = Negative, See 64988-9) external report for linked test SARS-COV-2 [facility] PERFORMING LAB (test code = 39545-9) ANGELA (test code = Negative result for this ANGELA) test determines that SARS-CoV-2 RNA was not present in the [...] of the Act. Fact Sheet for Healthcare Providers:https://www.[employer]/sites/default/f rodolfo/product/documents/F act_Sheet_HC_Providers_L uip_VZOW-MnF-3.pdf Fact Sheet for Healthcare Patients:https://www.[employer]/sites/default/fi les/product/documents/Fa ct_Sheet_Patients_Lyra_S ARS-CoV-2.pdf Performing Laboratory:[facility] [place], [place] [address]reanna [facility].[place], [place] [address] [place], [place] [address]ARS-COV2/RT-PCR ([facility] & REF LABS)2020-03-21 12:40:00 Test Item Value Reference Range Interpretation Comments SARS-COV2/RT-PCR (test Negative Not Detected, Negative, code = 8500838) See external report for linked test SARS-COV-2 PERFORMING LAB [facility] ANGELA (test code = 9226413) Negative result for this test determines that SARS-CoV-2 RNA was not present in the specimen above the Limit of Detection (LOD). However, Negative results do not preclude SARS-CoV-2 infection and should not be used as the sole basis for treatment or patient management decisions. Negative results mustbe combined with clinical observations, patient history, and epidemiological information. A false negative result may occur if a specimen is improperly collected, transported or handled. A false negative result should be considered if patient's recent exposures or clinical presentation indicate that COVID-19 (SARS-CoV-2) is likely and diagnostic tests for other causes of illness are negative. Re-testing should be considered in cases of suspected false negatives.The limit of detection for this assay is 800 copies/mL.This SARS CoV-2 test is a real-time RT-PCR test intended for the qualitative detection of nucleic acid from SARS-CoV-2 in a nasopharyngeal swab specimen collected from individuals susp ected of COVID-19 by their healthcare provider.This test has not been Food and Drug [...] is revoked under Section 564(g) of the Act.Fact Sheet for Healthcare Providers:https://www.[employer]/sites/default/files/product/documents/Fact_Shee q_HL_Iyslsgydf_Qrke_VHKN-GuL-9.pdfFact Sheet for Healthcare Patients:https://www.[employer]/sites/default/files/product/ documents/Yahm_Ooxxv_Mxoppmjz_Jbvi_EACT-XqD-2.pdfPerforming Laboratory:[facility], [place] [id number] 11:09:00 Test Item Value Reference Range Interpretation Comments RPR (test code = 07271-8) Nonreactive Nonreactive Lab Interpretation (test code = Normal 03223-6) [facility] 11:09:00 Test Item Value Reference Range Interpretation Comments RPR SCREEN (BEAKER) (test code = Nonreactive Nonreactive 420) Hemoglobin [id number] 09:02:00 Test Item Value Reference Range Interpretation Comments Hemoglobin A1C (test code = 4548-4) 5.7 % 4.3-6.1 Lab Interpretation (test code = Normal 02826-3) [facility]MO[facility] [id number] 09:02:00 Test Item Value Reference Range Interpretation Comments HEMOGLOBIN A1C (BEAKER) (test code = 5.7 % 4.3-6.1 368) Urinalysis w/Microscopic + Reflex to [id number] 07:06:00 Test Item Value Reference Range Interpretation Comments Color, UA (test code = Yellow 5778-6) Clarity, UA (test code = Clear 5767-9) Specific [place], UA >1.050 1.001-1.035 H (test code = 5811-5) pH, UA (test code = 5.5 5.0-8.0 5803-2) Protein, UA (test code = 20 mg/dL Negative A 02277-0) Glucose, UA (test code = Negative Negative 365) Ketones, UA (test code = Negative Negative 2514-8) Bilirubin, UA (test code Negative Negative = 70669-2) Blood, UA (test code = Moderate Negative A 23783-7) Nitrite, UA (test code = Negative Negative 5802-4) Leukocytes, UA (test code Moderate Negative A = 5799-2) Urobilinogen, UA (test 2.0 mg/dL 0.2-1 H code = 66752-6) RBC, UA (test code = 73 /HPF 44037-7) WBC, UA (test code = 28 /HPF 5821-4) Bacteria, UA (test code = Occasional 23081-7) Mucus (test code = Occasional 8247-9) Squam Epithel, UA (test <1 /HPF code = 91506-0) Specimen Source (test code = 2795) ANGELA (test code = ANGELA) Machine Greaser ID - [auto]Machine Greaser ID - tech Lab Interpretation (test Abnormal code = 01616-3) [facility]/ REFLEX URINE [id number] 07:06:00 Test Item Value Reference Range Interpretation Comments COLOR (BEAKER) (test code = 470) Yellow CLARITY (BEAKER) (test code = 469) Clear SPECIFIC GRAVITY UA (BEAKER) (test > 1.001-1.035 H code = 468) PH UA (BEAKER) (test code = 467) 5.5 5.0-8.0 PROTEIN UA (BEAKER) (test code = 20 mg/dL Negative A 464) GLUCOSE UA (BEAKER) (test code = Negative Negative 365) KETONES UA (BEAKER) (test code = Negative Negative 371) BILIRUBIN UA (BEAKER) (test code = Negative Negative 462) BLOOD UA (BEAKER) (test code = Moderate Negative A 461) NITRITE UA (BEAKER) (test code = Negative Negative 465) LEUKOCYTE ESTERASE UA (BEAKER) Moderate Negative A (test code = 466) UROBILINOGEN UA (BEAKER) (test 2.0 mg/dL 0.2-1.0 H code = 463) RBC UA (BEAKER) (test code = 519) 73 /HPF WBC UA (BEAKER) (test code = 520) 28 /HPF BACTERIA (BEAKER) (test code = Occasional 517) MUCUS (BEAKER) (test code = 1574) Occasional SQUAMOUS EPITHELIAL (BEAKER) (test < /HPF code = 516) SOURCE(BEAKER) (test code = 2795) Machine Greaser ID - [auto]Machine Greaser ID - techTSH/Free T4 If [id number] 05:37:00 Test Item Value Reference Range Interpretation Comments TSH (test code = 2.831 0.350- 4.940 uIU/mL 47475-1) ANGELA (test code = ANGELA) Machine Greaser ID - EDASI Lab Interpretation (test Normal code = 51066-8) [facility] HospitalVitamin B12 and [id number] 05:37:00 Test Item Value Reference Range Interpretation Comments Vitamin B12 (test code = 289 pg/mL 036-770 9526-9) Folate (test code = 12.60 ng/mL >=7.00 2284-8) ANGELA (test code = ANGELA) Machine Greaser ID - EDASI Lab Interpretation (test Normal code = 92342-6) [facility] HospitalTSH/FREE T4 IF [id number] 05:37:00 Test Item Value Reference Range Interpretation Comments THYROID STIMULATING HORMONE 2.831 uIU/mL 0.350-4.940 (BEAKER) (test code = 772) Machine Greaser ID - EDASIVITAMIN B12 AND [id number] 05:37:00 Test Item Value Reference Range Interpretation Comments VITAMIN B12 (BEAKER) (test code = 289 pg/mL 213-816 774) FOLATE (BEAKER) (test code = 362) 12.60 ng/mL >=7.00 Machine Greaser ID - EDASILipid [id number] 05:15:00 Test Item Value Reference Range Interpretation Comments Triglycerides (test 51 mg/dL code = 2571-8) Cholesterol (test code 122 mg/dL = 2092-3) HDL (test code = 43 mg/dL 2085-01) LDL Calculated (test 69 mg/dL code = 46730-8) ANGELA (test code = ANGELA) Triglyceride Reference Range: Low Risk <150 Borderline 150-199 High Risk 200-499 Very High Risk >=500 Cholesterol Reference Range: Low Risk <200 Borderline 200-239 High Risk >240 HDL Cholesterol Reference Range: Low Risk >=60 High Risk <40 LDL Cholesterol Reference Range: Optimal <100 Near Optimal 100-129 Borderline 130-159 High 160-189 Very High >=190 Machine Greaser ID - EDASI [facility] [id number] 05:15:00 Test Item Value Reference Range Interpretation Comments Protein, Total (test code 6.1 6.0- 8.3 gm/dL = 2885-2) Albumin (test code = 3.2 g/dL 3.5-5 L 31610-9) Total Bilirubin (test code 0.8 mg/dL 0.2-1.2 = 1974-2) Bilirubin, Direct (test 0.4 mg/dL 0.1-0.5 code = 1967-7) Alkaline Phosphatase (test 76 U/L 40-150 code = 6768-6) AST (test code = 1920-8) 34 U/L 5-34 ALT (test code = 1742-6) 19 U/L 6-55 ANGELA (test code = ANGELA) Machine Greaser ID - EDASI Lab Interpretation (test Abnormal code = 28514-5) [facility] 05:15:00 Test Item Value Reference Range Interpretation Comments Magnesium (test code = 1.8 mg/dL 1.6-2.6 47302-2) ANGELA (test code = ANGELA) Machine Greaser ID - EDASI Lab Interpretation (test Normal code = 27525-5) [facility] 05:15:00 Test Item Value Reference Range Interpretation Comments Phosphorus (test code = 3.4 mg/dL 2.3-4.7 2777-1) ANGELA (test code = ANGELA) Machine Greaser ID - EDASI Lab Interpretation (test Normal code = 90303-0) [facility]Reactive [id number] 05:15:00 Test Item Value Reference Range Interpretation Comments CRP (test code = 676) 6.14 mg/dL 0-0.5 H ANGELA (test code = ANGELA) Machine Greaser ID - STEVE Lab Interpretation (test Abnormal code = 22658-8) [facility] METABOLIC [id number] 05:15:00 Test Item Value Reference Range Interpretation Comments SODIUM (BEAKER) 139 meq/L 136-145 (test code = 381) POTASSIUM (BEAKER) 3.9 meq/L 3.5-5.1 (test code = 379) CHLORIDE (BEAKER) 104 meq/L 98-107 (test code = 382) CO2 (BEAKER) (test 27 meq/L 22-29 code = 355) BLOOD UREA NITROGEN 14 mg/dL 7-21 (BEAKER) (test code = 354) CREATININE (BEAKER) 0.93 mg/dL 0.57-1.25 (test code = 358) GLUCOSE RANDOM 123 mg/dL 70-105 H (BEAKER) (test code = 652) CALCIUM (BEAKER) 8.4 mg/dL 8.4-10.2 (test code = 697) EGFR (BEAKER) (test 77 mL/min/1.73 ESTIMA LEVI GFR IS code = 1092) sq m NOT ACCURATE CREATININE CLEARANCE IN PREDICTING GLOMERULAR FILTRATION RATE . ESTIMATED GFR I S NOT APPLICABLE FOR DIALYSIS PATIEN TS. Machine Greaser ID - [id number] 05:15:00 Test Item Value Reference Range Interpretation Comments MAGNESIUM (BEAKER) (test code = 1.8 mg/dL 1.6-2.6 627) Machine Greaser ID - [id number] 05:15:00 Test Item Value Reference Range Interpretation Comments PHOSPHORUS (BEAKER) (test code = 3.4 mg/dL 2.3-4.7 604) Machine Greaser ID - EDASILIPID [id number] 05:15:00 Test Item Value Reference Range Interpretation Comments TRIGLYCERIDES (BEAKER) (test code = 51 mg/dL 540) CHOLESTEROL (BEAKER) (test code = 122 mg/dL 631) HDL CHOLESTEROL (BEAKER) (test code 43 mg/dL = 976) LDL CHOLESTEROL CALCULATED (BEAKER) 69 mg/dL (test code = 633) Triglyceride Reference Range: Low Risk <150 Borderline 150-199 High Risk 200-499 Very High Risk >=500Cholesterol Reference Range: Low Risk <200 Borderline 200-239 High Risk >240HDL Cholesterol Reference Range: Low Risk >=60 High Risk <40LDL Cholesterol Reference Range: Optimal <100 Near Optimal 100-129 Borderline 130-159 High 160-189 Very High >=190 Machine Greaser ID - EDASIHEPATIC FUNCTION [id number] 05:15:00 Test Item Value Reference Range Interpretation Comments TOTAL PROTEIN (BEAKER) (test code = 6.1 gm/dL 6.0-8.3 770) ALBUMIN (BEAKER) (test code = 1145) 3.2 g/dL 3.5-5.0 L BILIRUBIN TOTAL (BEAKER) (test code 0.8 mg/dL 0.2-1.2 = 377) BILIRUBIN DIRECT (BEAKER) (test 0.4 mg/dL 0.1-0.5 code = 706) ALKALINE PHOSPHATASE (BEAKER) (test 76 U/L 40-150 code = 346) AST (SGOT) (BEAKER) (test code = 34 U/L 5-34 353) ALT (SGPT) (BEAKER) (test code = 19 U/L 6-55 347) Machine Greaser ID - EDASIC-REACTIVE [id number] 05:15:00 Test Item Value Reference Range Interpretation Comments C-REACTIVE PROTEIN (BEAKER) (test 6.14 mg/dL 0.00-0.50 H code = 676) Machine Greaser ID - EDASICBC W/PLT COUNT & AUTO [id number] 05:10:00 Test Item Value Reference Range Interpretation Comments WHITE BLOOD CELL COUNT (BEAKER) 14.1 K/ L 3.5-10.5 H (test code = 775) RED BLOOD CELL COUNT (BEAKER) 3.90 M/ L 4.63-6.08 L (test code = 761) HEMOGLOBIN (BEAKER) (test code = 12.3 GM/DL 13.7-17.5 L 410) HEMATOCRIT (BEAKER) (test code = 37.2 % 40.1-51.0 L 411) MEAN CORPUSCULAR VOLUME (BEAKER) 95.4 fL 79.0-92.2 H (test code = 753) MEAN CORPUSCULAR HEMOGLOBIN 31.5 pg 25.7-32.2 (BEAKER) (test code = 751) MEAN CORPUSCULAR HEMOGLOBIN CONC 33.1 GM/DL 32.3-36.5 (BEAKER) (test code = 752) RED CELL DISTRIBUTION WIDTH 13.6 % 11.6-14.4 (BEAKER) (test code = 412) PLATELET COUNT (BEAKER) (test 297 K/CU MM 150-450 code = 756) MEAN PLATELET VOLUME (BEAKER) 9.8 fL 9.4-12.4 (test code = 754) NUCLEATED RED BLOOD CELLS 0 /100 WBC 0-0 (BEAKER) (test code = 413) NEUTROPHILS RELATIVE PERCENT 77 % (BEAKER) (test code = 429) LYMPHOCYTES RELATIVE PERCENT 11 % (BEAKER) (test code = 430) MONOCYTES RELATIVE PERCENT 10 % (BEAKER) (test code = 431) EOSINOPHILS RELATIVE PERCENT 1 % (BEAKER) (test code = 432) BASOPHILS RELATIVE PERCENT 1 % (BEAKER) (test code = 437) NEUTROPHILS ABSOLUTE COUNT 10.84 K/ L 1.78-5.38 H (BEAKER) (test code = 670) LYMPHOCYTES ABSOLUTE COUNT 1.55 K/ L 1.32-3.57 (BEAKER) (test code = 414) MONOCYTES ABSOLUTE COUNT (BEAKER) 1.42 K/ L 0.30-0.82 H (test code = 415) EOSINOPHILS ABSOLUTE COUNT 0.12 K/ L 0.04-0.54 (BEAKER) (test code = 416) BASOPHILS ABSOLUTE COUNT (BEAKER) 0.09 K/ L 0.01-0.08 H (test code = 417) IMMATURE GRANULOCYTES-RELATIVE 0 % 0-1 PERCENT (BEAKER) (test code = 2801) Prothrombin time/[id number] 04:56:00 Test Item Value Reference Range Interpretation Comments Protime (test code = 15.8 11.9- 14.2 H 5902-2) seconds INR (test code = 1.30 <=5.90 6301-6) ANGELA (test code = ANGELA) Effective 09/30/2018: PT Reference Range ChangeNew: 11.9-14.2 Previous: 11.7-14.7 RECOMMENDED COUMADIN/WARFARIN INR THERAPY RANGESSTANDARD DOSE: 2.0-3.0 Includes: PROPHYLAXIS for venous thrombosis, systemic embolization; TREATMENT for venous thrombosis and/or pulmonary embolus.HIGH RISK: Target INR is 2.5-3.5 for patients wiht mechanical heart valves. Lab Interpretation Abnormal (test code = 67295-6) [facility] HospitalPROTHROMBIN TIME/[id number] 04:56:00 Test Item Value Reference Range Interpretation Comments PROTIME (BEAKER) (test code = 15.8 seconds 11.9-14.2 H 759) INR (BEAKER) (test code = 370) 1.30 <=5.90 Effective 09/30/2018: PT Reference Range ChangeNew: 11.9-14.2 Previous: 11.7- 14.7RECOMMENDED COUMADIN/WARFARIN INR THERAPY RANGESSTANDARD DOSE: 2.0-3.0 Includes: PROPHYLAXIS for venous thrombosis, systemic embolization; TREATMENT for venous thrombosis and/or pulmonary embolus.HIGH RISK: Target INR is2.5-3.5 for patients wiht mechanical heart valves.CT, CTANGIO [id number] 02:43:00 Unlisted Reason for Exam - Click Yes and Enter Reason Below->No [facility] 1935 Sex: MAddendum BeginsREPORT STATUS:A The following addendum is being made to comply with coding criteria, and does not substantially change the findings or recommendations of the original report. TECHNIQUE: Noncontrast head CT was performed. CT angiogram of the head and neck was performed with intravenous contrast. MIP and volume rendered reformatted images were obtained. This exam was performed according to our departmental dose optimization program which includes automated exposure control, adjustment of the mA and/or kV according to patient's size and/or use of iterative reconstructive technique. Signed: Gretchen Fields MDReport Verified Date/Time: 03/21/2020 02:43:53 Addendum EndsFINAL REPORT EXAM: CT, CT Angio, Brain. CT Carotid Angio CLINICAL HISTORY: Neuro deficit, acute, stroke suspected COMPARISON: None. TECHNIQUE: Noncontrast head CT was performed. CT angiogram of the head and neck was performed with intravenous contrast. MIP reformatted images were obtained. This exam was performed according to our departmental dose optimization program which includes automated exposure control, adjustment of the mA and/or kV according to patient's size and/or use of iterative reconstructive technique. Stenosis evaluation reported in compliance with NASCET criteria. FINDINGS: Noncontrast CT head: There is generalized parenchymal atrophy. There are mode rate to severe white matter microvascular ischemic changes There is no acute intracranial hemorrhage, extra-axial fluid collection, mass effect, herniation or hydrocephalus. The basal cisterns are patent. There is no large demarcated acute territorial infarct. The visualized orbits are normal. There is mild paranasal sinus mucosal thickening. There is mild opacification of the bilateral mastoid tips. The skull base and calvarium are intact. CTA head: There is intracranial calcific atherosclerosis. There is good flow related enhancement of the bilateral anterior, middle and posterior cerebral arteries and within the basilar artery. The intracranial and skull base internal carotid arteries as well as the vertebral arteries demonstrate normal flow-related enhancement.There is no vessel occlusion orflow-limiting stenosis.There is no aneurysm. CTA neck: The visualized aortic arch and great vessel origins are unremarkable except for calcific atherosclerosis. There are atherosclerotic calcificationsof the bilateral carotid bulbs and left proximal cervical internal carotid artery.There is good flowrelated enhancement of the bilateral common and internal carotid arteries. The vertebral arteries are well visualized. There is no vessel occlusion or hemodynamically significant stenosis by NASCET criteria. The thyroid gland is nodular with a dominant 1.7 cm left thyroid nodule. There are multilevel degenerative changes of the visualized spine. There is a 3 mm anterolisthesis at C5/C6. IMPRESSION: Noncontrast CT head: Moderate to severe white matter microvascular ischemic changes. No CT evidence of an acute intracranial process. MRI may be performed if clinical suspicion for acute ischemia persists. CTA head: No vessel occlusion or flow-limiting stenosis. CTA neck: No vessel occlusion or hemodynamically significant stenosis by NASCET criteria. 1.7 cm left thyroid nodule for which a nonemergentthyroid neck ultrasound is recommended for further evaluation. Signed: Gretchen Fieldseport Verified Date/Time: 03/20/2020 23:55:04 CT, CAROTID, [id number] 02:43:00 Unlisted Reason for Exam - Click Yes and Enter Reason Below->No [facility] : 1935 Sex: MAddendum BeginsREPORT STATUS:A The following addendum is being made to comply with coding criteria, and does not substantially change the findings or recommendations of the original report. TECHNIQUE: Noncontrast head CT was performed. CT angiogram of the head and neck was performed with intravenous contrast. MIP and volume rendered reformatted images were obtained. This exam was performed according to our departmental dose optimization program which includes automated exposure control, adjustment of the mA and/or kV according to patient's size and/or use of iterative reconstructive technique. Signed: Gretchen Fieldsort Verified Date/Time: 03/21/2020 02:43:53 Addendum EndsFINAL REPORT EXAM: CT, CT Angio, Brain. CT Carotid Angio CLINICAL HISTORY: Neuro deficit, acute, stroke suspected COMPARISON: None. TECHNIQUE: Noncontrast head CT was performed. CT angiogram of the head and neck was performed with intravenous contrast. MIP reformatted images were obtained. This exam was performed according to our departmental dose optimization program which includes automated exposure control, adjustment of the mA and/or kV according to patient's size and/or use of iterative reconstructive technique. Stenosis evaluation reported in compliance with NASCET criteria. FINDINGS: Noncontrast CT head: There is generalized parenchymal atrophy. There are mode rate to severe white matter microvascular ischemic changes There is no acute intracranial hemorrhage, extra-axial fluid collection, mass effect, herniation or hydrocephalus. The basal cisterns are patent. There is no large demarcated acute territorial infarct. The visualized orbits are normal. There is mild paranasal sinus mucosal thickening. There is mild opacification of the bilateral mastoid tips. The skull base and calvarium are intact. CTA head: There is intracranial calcific atherosclerosis. There is good flow related enhancement of the bilateral anterior, middle and posterior cerebral arteries and within the basilar artery. The intracranial and skull base internal carotid arteries as well as the vertebral arteries demonstrate normal flow-related enhancement.There is no vessel occlusion orflow-limiting stenosis.There is no aneurysm. CTA neck: The visualized aortic arch and great vessel origins are unremarkable except for calcific atherosclerosis. There are atherosclerotic calcificationsof the bilateral carotid bulbs and left proximal cervical internal carotid artery.There is good flowrelated enhancement of the bilateral common and internal carotid arteries. The vertebral arteries are well visualized. There is no vessel occlusion or hemodynamically significant stenosis by NASCET criteria. The thyroid gland is nodular with a dominant 1.7 cm left thyroid nodule. There are multilevel degenerative changes of the visualized spine. There is a 3 mm anterolisthesis at C5/C6. IMPRESSION: Noncontrast CT head: Moderate to severe white matter microvascular ischemic changes. No CT evidence of an acute intracranial process. MRI may be performed if clinical suspicion for acute ischemia persists. CTA head: No vessel occlusion or flow-limiting stenosis. CTA neck: No vessel occlusion or hemodynamically significant stenosis by NASCET criteria. 1.7 cm left thyroid nodule for which a nonemergentthyroid neck ultrasound is recommended for further evaluation. Signed: Gretchen Fields MDReport Verified Date/Time: 03/20/2020 23:55:04 [facility] [id number] 23:55:00Interface, External Ris In - 03/21/2020 2:46 AM CSTAddendum BeginsREPORT STATUS:A The following addendum is being made to comply with coding criteria, and does not substantiallychange the findings or recommendations of the original report. TECHNIQUE: Noncontrast head CT was performed. CT angiogram of the head and neck was performed with intravenous contrast. MIP and volume will dered reformatted images were obtained. This exam was performed according to our departmental dose optimization program which includes automated exposure control, adjustment of the mA and/or kV according to patient's size and/or use of iterative reconstructive technique. Signed: Gretchen Fields MDReportVerified Date/Time: 03/21/2020 02:43:53 Addendum EndsFINAL REPORT EXAM: CT, CT Angio, Brain. CT Carotid Angio CLINICAL HISTORY: Neuro deficit, acute, stroke suspected COMPARISON: None. TECHNIQUE: Noncontrast head CT was performed. CT angiogram of the head and neck was performed with intravenous contrast. MIP reformatted images were obtained. This exam was performed according to our departmental dose optimization program which includes automated exposure control, adjustment of the mA and/or kV according to patient's size and/or use of iterative reconstructive technique. Stenosis evaluation reported in compliance with NASCET criteria. FINDINGS: Noncontrast CT head: There is generalized parenchymal atrophy. There are moderate to severe white matter microvascular ischemic changes There is no acute intracranial hemorrhage, extra- axial fluid collection, mass effect, herniation or hydrocephalus. The basal cisterns are patent. There is no large demarcated acute territorial infarct. The visualized orbits are normal. There is mild paranasal sinus mucosal thickening. There is mild opacification of the bilateral mastoid tips. The skull base and calvarium are intact. CTA head: There is intracranial calcific atherosclerosis. There is good flow related enhancement of the bilateral anterior, middle and posterior cerebral arteries and within the basilar artery. The intracranial and skull base internal carotid arteries as well as the vertebral arteries demonstrate normal flow-related enhancement.There is no vessel occlusion or flow-limiting stenosis.There is no aneurysm. CTA neck: The visualized aortic arch and great vessel origins are unremarkable except for calcific atherosclerosis. There are atherosclerotic calcifications of the bilateral carotid bulbs and left proximal cervical internal carotid artery.There is good flow related enhancement of the bilateral common and internal carotid arteries. The vertebral arteries are well visualized. There is no vessel occlusion or hemodynamically significant stenosis by NASCET criteria. The thyroid gland is nodular with a dominant 1.7 cm left thyroid nodule. There are multilevel degenerative changes of the visualized spine. There burke 3 mm anterolisthesis at C5/C6. IMPRESSION: Noncontrast CT head: Moderate to severe white matter microvascular ischemic changes. No CT evidence of an acute intracranial process. MRI may be performed if clinical suspicion for acute ischemia persists. CTA head: No vessel occlusion or flow-limiting stenosis. CTA neck: No vessel occlusion or hemodynamically significant stenosis by NASCET criteria. 1.7cm left thyroid nodule for which a nonemergent thyroid neck ultrasound is recommended for further evaluation. Signed: Gretchen Fields Verified Date/Time: 03/20/2020 23:55:04 [facility]CT[facility] 2020-03-[facility] 23:55:00Interface, External Ris In - 03/21/2020 2:46 AM CSTAddendum BeginsREPORT STATUS:A The following addendum is being made to comply with coding criteria, and does not substantiallychange the findings or recommendations of the original report. TECHNIQUE: Noncontrast head CT was performed. CT angiogram of the head and neck was performed with intravenous contrast. MIP and volume rendered reformatted images were obtained. This exam was performed according to our departmental dose optimization program which includes automated exposure control, adjustment of the mA and/or kV according to patient's size and/or use of iterative reconstructive technique. Signed: Gretchen FieldsVerified Date/Time: 03/21/2020 02:43:53 Addendum EndsFINAL REPORT EXAM: CT, CT Angio, Brain. CT Carotid Angio CLINICAL HISTORY: Neuro deficit, acute, stroke suspected COMPARISON: None. TECHNIQUE: Noncontrast head CT was performed. CT angiogram of the head and neck was performed with intravenous contrast. MIP reformatted images were obtained. This exam was performed according to our departmental dose optimization program which includes automated exposure control, adjustment of the mA and/or kV according to patient's size and/or use of iterative reconstructive technique. Stenosis evaluation reported in compliance with NASCET criteria. FINDINGS: Noncontrast CT head: There isgeneralized parenchymal atrophy. There are moderate to severe white matter microvascular ischemic changes There is no acute intracranial hemorrhage, extra-axial fluid collection, mass effect, herniation or hydrocephalus. The basal cisterns are patent. There is no large demarcated acute territorial infarct. The visualized orbits are normal. There is mild paranasal sinus mucosal thickening. There is mild opacification of the bilateral mastoid tips. The skull base and calvarium are intact. CTA head: There is intracranial calcific atherosclerosis. There is good flow related enhancement of the bilateral anterior, middle and posterior cerebral arteries and within the basilar artery. The intracranial and skull base internal carotid arteries as well as the vertebral arteries demonstrate normal flow-related enhancement.There is no vessel occlusion or flow-limiting stenosis.There is no aneurysm. CTA neck: The visualized aortic arch and great vessel origins are unremarkable except for calcific atherosclerosis. There are atherosclerotic calcifications of the bilateral carotid bulbs and left proximal cervical internal carotid artery.There is good flow related enhancement of the bilateral common and general internist and physician leader al carotid arteries. The vertebral arteries are well visualized. There is no vessel occlusion or hemodynamically significant stenosis by NASCET criteria. The thyroid gland is nodular with a dominant 1.7 cm left thyroid nodule. There are multilevel degenerative changes of the visualized spine. There burke 3 mm anterolisthesis at C5/C6. IMPRESSION: Noncontrast CT head: Moderate to severe white matter microvascular ischemic changes. No CT evidence of an acute intracranial process. MRI may be performed if clinical suspicion for acute ischemia persists. CTA head: No vessel occlusion or flow-limiting stenosis. CTA neck: No vessel occlusion or hemodynamically significant stenosis by NASCET criteria. 1.7cm left thyroid nodule for which a nonemergent thyroid neck ultrasound is recommended for further evaluation. Signed: Gretchen Fields MDReport Verified Date/Time: 03/20/2020 23:55:04 [facility]XR [facility] 2 views [id number] 22:20:00Interface, External Ris In - 03/20/2020 10:30 PM CSTFINAL REPORT RAD, HIP, 2-3 VIEWS, LEFT, TO INCL PELVIS WHEN PERFORMED CLINICAL INDICATION: post reduction COMPARISON: Left hip radiographs 03/20/2020, 5:46 PM. FINDINGS: Frontal and crosstable frontal and lateral views ofthe left hip were obtained. There is a left total hip arthroplasty. There has been interval reduction of previously noted left hip dislocation. There is no periprosthetic fracture or loosening. There is no acute fracture. There are degenerative changes of the visualized lower lumbar spine. The bilateral sacroiliac joints are patent. The sacrum is partially obscured by overlying stool and bowel gas. IMPRESSION: Interval reduction of previously noted left hip dislocation. Signed: Gretchen Fields MDReport Verified Date/Time: 03/20/2020 22:20:46 [facility]-3 [facility]IE[facility], LEFT, TO INCL PELVIS WHEN [id number] 22:20:00Reason for exam:->post reduction [facility] : 1935 Sex: MFINAL REPORT RAD, HIP, 2-3 VIEWS, LEFT, TO INCL PELVIS WHEN PERFORMED CLINICAL INDICATION: post reduction COMPARISON: Left hip radiographs 03/20/2020, 5:46 PM. FINDINGS: Frontal and crosstable frontal and lateral views of the left hip were obtained. There is a left total hip arthroplasty. There has been interval reduction of previously noted left hip dislocation. There is no periprosthetic fracture or loosening. There is no acute fracture. There are degenerative changes of the visualized lower lumbar spine. The bilateral sacroiliac joints are patent. The sacrum is partially obscured by overlying stool and bowel gas. IMPRESSION: Interval reduction of previously noted left hip dislocation. Signed: Grethcen Fields MDReport Verified Date/Time: 03/20/2020 22:20:46 [facility]OLIC [id number] 20:36:00 Test Item Value Reference Range Interpretation Comments SODIUM (BEAKER) 138 meq/L 136-145 (test code = 381) POTASSIUM (BEAKER) 4.2 meq/L 3.5-5.1 Specimen slightly (test code = 379) hemolyzed CHLORIDE (BEAKER) 106 meq/L 98-107 (test code = 382) CO2 (BEAKER) (test 26 meq/L 22-29 code = 355) BLOOD UREA NITROGEN 14 mg/dL 7-21 (BEAKER) (test code = 354) CREATININE (BEAKER) 0.91 mg/dL 0.57-1.25 Specimen slightly (test code = 358) hemolyzed GLUCOSE RANDOM 124 mg/dL 70-105 H (BEAKER) (test code = 652) CALCIUM (BEAKER) 8.4 mg/dL 8.4-10.2 (test code = 697) EGFR (BEAKER) (test 79 mL/min/1.73 ESTIMA LEVI GFR IS code = 1092) sq m NOT ACCURATE CREATININE CLEARANCE IN PREDICTING GLOMERULAR FILTRATION RATE . ESTIMATED GFR I S NOT APPLICABLE FOR DIALYSIS PATIEN TS. Machine Greaser ID - BSCBC W/PLT COUNT & AUTO [id number] 20:17:00 Test Item Value Reference Range Interpretation Comments WHITE BLOOD CELL COUNT (BEAKER) 14.4 K/ L 3.5-10.5 H (test code = 775) RED BLOOD CELL COUNT (BEAKER) 3.66 M/ L 4.63-6.08 L (test code = 761) HEMOGLOBIN (BEAKER) (test code = 11.4 GM/DL 13.7-17.5 L 410) HEMATOCRIT (BEAKER) (test code = 34.2 % 40.1-51.0 L 411) MEAN CORPUSCULAR VOLUME (BEAKER) 93.4 fL 79.0-92.2 H (test code = 753) MEAN CORPUSCULAR HEMOGLOBIN 31.1 pg 25.7-32.2 (BEAKER) (test code = 751) MEAN CORPUSCULAR HEMOGLOBIN CONC 33.3 GM/DL 32.3-36.5 (BEAKER) (test code = 752) RED CELL DISTRIBUTION WIDTH 13.3 % 11.6-14.4 (BEAKER) (test code = 412) PLATELET COUNT (BEAKER) (test 314 K/CU MM 150-450 code = 756) MEAN PLATELET VOLUME (BEAKER) 10.0 fL 9.4-12.4 (test code = 754) NUCLEATED RED BLOOD CELLS 0 /100 WBC 0-0 (BEAKER) (test code = 413) NEUTROPHILS RELATIVE PERCENT 77 % (BEAKER) (test code = 429) LYMPHOCYTES RELATIVE PERCENT 13 % (BEAKER) (test code = 430) MONOCYTES RELATIVE PERCENT 9 % (BEAKER) (test code = 431) EOSINOPHILS RELATIVE PERCENT 1 % (BEAKER) (test code = 432) BASOPHILS RELATIVE PERCENT 1 % (BEAKER) (test code = 437) NEUTROPHILS ABSOLUTE COUNT 11.04 K/ L 1.78-5.38 H (BEAKER) (test code = 670) LYMPHOCYTES ABSOLUTE COUNT 1.84 K/ L 1.32-3.57 (BEAKER) (test code = 414) MONOCYTES ABSOLUTE COUNT (BEAKER) 1.26 K/ L 0.30-0.82 H (test code = 415) EOSINOPHILS ABSOLUTE COUNT 0.08 K/ L 0.04-0.54 (BEAKER) (test code = 416) BASOPHILS ABSOLUTE COUNT (BEAKER) 0.10 K/ L 0.01-0.08 H (test code = 417) IMMATURE GRANULOCYTES-RELATIVE 0 % 0-1 PERCENT (BEAKER) (test code = 2801) PT/[id number] 19:57:00 Test Item Value Reference Range Interpretation Comments Protime (test code = 15.2 11.9- 14.2 H 5902-2) seconds INR (test code = 1.23 <=5.90 6301-6) PTT (test code = 28.1 22.5- 36.0 16051-3) seconds ANGELA (test code = ANGELA) Effective 09/30/2018: PT Reference Range ChangeNew: 11.9-14.2 Previous: 11.7-14.7 RECOMMENDED COUMADIN/WARFARIN INR THERAPY RANGESSTANDARD DOSE: 2.0-3.0 Includes: PROPHYLAXIS for venous thrombosis, systemic embolization; TREATMENT for venous thrombosis and/or pulmonary embolus.HIGH RISK: Target INR is 2.5-3.5 for patients wiht mechanical heart valves. Lab Interpretation Abnormal (test code = 42311-4) [id number] 19:57:00 Test Item Value Reference Range Interpretation Comments PROTIME (BEAKER) (test code = 15.2 seconds 11.9-14.2 H 759) INR (BEAKER) (test code = 370) 1.23 <=5.90 PARTIAL THROMBOPLASTIN TIME 28.1 seconds 22.5-36.0 (BEAKER) (test code = 760) Effective 09/30/2018: PT Reference Range ChangeNew: 11.9-14.2 Previous: 11.7- 14.7RECOMMENDED COUMADIN/WARFARIN INR THERAPY RANGESSTANDARD DOSE: 2.0-3.0 Includes: PROPHYLAXIS for venous thrombosis, systemic embolization; TREATMENT for venous thrombosis and/or pulmonary embolus.HIGH RISK: Target INR is2.5-3.5 for patients wiht mechanical heart valves.PROTHROMBIN TIME/[id number] 19:56:00 Test Item Value Reference Range Interpretation Comments PROTIME (BEAKER) (test code = 15.2 seconds 11.9-14.2 H 759) INR (BEAKER) (test code = 370) 1.23 <=5.90 Effective 09/30/2018: PT Reference Range ChangeNew: 11.9-14.2 Previous: 11.7- 14.7RECOMMENDED COUMADIN/WARFARIN INR THERAPY RANGESSTANDARD DOSE: 2.0-3.0 Includes: PROPHYLAXIS for venous thrombosis, systemic embolization; TREATMENT for venous thrombosis and/or pulmonary embolus.HIGH RISK: Target INR is2.5-3.5 for patients wiht mechanical heart valves.RAD, SHOULDER, COMPLETE (MIN 2 VIEWS), [id number] 19:29:00Reason for exam:->L [facility]eral [facility]luxation [facility] 1935 Sex: MFINAL REPORT TECHNIQUE: Internal/external rotation views of the left shoulder. INDICATION: L humeral subluxation. COMPARISON: None. IMPRESSION:No acute fracture or dislocation. 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 Advanced degenerative changes of the left acromioclavicular joint with ank ylosis. Internal and external rotation is maintained. Visualized left lung is clear. Soft tissues are grossly unremarkable. Signed: Johnson Cruz Verified Date/Time: 03/20/2020 19:29:37 XR shoulder complete 2 views min [id number] 19:29:00Interface, External Ris In - 03/20/2020 7:31 PM CSTFINAL REPORT TECHNIQUE: Internal/external rotation views of the left shoulder. INDICATION: L humeral subluxation. COMPARISON: None. IMPRESSION:No acute fracture or dislocation. 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 Advanced degenerative changes of the left acromioclavicular joint with ankylosis. Internal and external rotation is maintained.Visualized left lung is clear. Soft tissues are grossly unremarkable. Signed: Johnson Cruz V erified Date/Time: 03/20/2020 19:29:37 [facility] CenterProcedural [id number] 18:22:28Gricel Howard MD 03/21/2020 2:04 PMProcedural sedation Date/Time: 03/20/2020 11:03 PMPerformed by: Amy HeinAuthorized by: Gricel Howard MD Consent: Consent obtained: WrittenIndications: Sedation purpose: Dislocation reduction Procedure necessitating sedation performed by: Different physicianPre-sedation assessment: Plan for sedation: Moderate (conscious) sedation Reviewed: allergies reviewed, family history of anesthetic complications, medicalhistory reviewed and patient summary reviewed NPO status: NPO NPO Time: > 4 hours Neck mobility: normal Mouth openin or more finger widths Mallampati score: II - soft palate, uvula, fauces visible Pre-sedation assessment completed: 03/20/2020 9:30 PMProcedure details (see MAR for exact dosages): Patient reassessed immediately prior to administration/induction of sedation (BP,P, RR, O2, LOC) and I feel the patient is still an appropriate candidate for planned sedation/analgesia Sedation start time: 03/20/2020 9:40 PM Preoxygenation: Nasal cannula Sedation: KetamineAnalgesia: None Intra-procedure monitoring: Blood pressure monitoring, continuous capnometry, frequent LOC assessments, ekg monitor, continuous pulse oximetry and frequent vital sign checks Intra-procedure events: hypoxia Intra-procedure management: Airway repositioning and supplemental oxygen Sedation end time: 03/20/2020 10:07 PM Total sedation time (minutes): 27Post Sedation Evaluation: Respiration: airway patent and returned to pre-procedure baseline Mental Status: returned to pre-procedure baseline Cardiovascular Function: Returned to pre-procedure baseline The following have been reviewed and returned to pre-procedure baseline: RR, HR, pulse ox and BPCH[facility], [facility]ELVIS, 1 OR 2 [id number] 18:16:00Reason for exam:->left hip dislocationShould this be performed at the bedside?->Yes [facility] 1935 Sex: MFINAL REPORT Clinical history: Left hip dislocation Technique: Single APview of the pelvis obtained. FINDINGS:There are postsurgical changes from left hip arthroplasty with superior/lateral dislocation of the femoral component in respect to the acetabular component. Hardware otherwise appears intact without evidence for fracture. No other acute fracture or dislocation is appreciated. There are degenerative changes of the visualized lumbosacral spine, bilateral SI joints, and right hip. No focal lytic or blastic abnormality is identified. The visualized intrapelvic contents are unremarkable. IMPRESSION: Left hip prosthesis dislocation as above. Signed: De Casas MDReport Verified Date/Time: 03/20/2020 18:16:09 Reading Location: [facility] C013 Consult Reading Room XR pelvis 1 or 2 [id number] 18:16:00Interface, External Ris In - 03/20/2020 6:18 PM CSTFINAL REPORT Clinical history: Left hip dislocation Technique: Single AP view of the pelvis obtained. FINDINGS:There are postsurgical changes from left hip arthroplasty with superior/lateral dislocation of the femoral component in respect to the acetabular component. Hardware otherwise appears intact without evidence for fracture. No other acute fracture or dislocation is appreciated. There are degenerative changes of the visualized lumbosacral spine, bilateral SI joints, and right hip. No focal lytic or blastic abnormalityis identified. The visualized intrapelvic contents are unremarkable. IMPRESSION: Left hip prosthesis dislocation as above. Signed: De Casas MDReport Verified Date/Time: 03/20/2020 18:16:09 Reading Location: [facility] B1 C013W Consult Reading Room [facility]), TOTAL AND [id number] 13:09:00 Test Item Value Reference Range Interpretation Comments CREATINE KINASE TOTAL (BEAKER) 125 U/L 29-200 (test code = 380) CREATINE KINASE-MB (BEAKER) (test 2.0 ng/mL 0.0-6.6 code = 750) CREATINE KINASE-MB INDEX (BEAKER) 1.6 % (test code = 395) Effective 03/22/2014: CK-MB Reference Range ChangeNew: 0.0-6.6 Previous: 0.0-4.9CK-MB Reference Range:<6.7 Normal6.7-10.0 Borderline>10.0 AbnormalTROPONIN [id number] 13:09:00 Test Item Value Reference Range Interpretation [...] acidosis, acute neurological disease, and persistent tachyarrhythmia.HEMOGLOBIN [id number] 10:21:00 Test Item Value Reference Range Interpretation Comments HEMOGLOBIN A1C (BEAKER) (test code = 5.5 % 4.3-6.1 368) URINALYSIS W/ [id number] 05:37:00 Test Item Value Reference Range Interpretation [...] = 2795) CBC W/PLT COUNT & AUTO [id number] 05:13:00 Test Item Value Reference Range Interpretation [...] = 417) 0.00CREATINE KINASE (CK), TOTAL AND [id number] 05:09:00 Test Item Value Reference Range Interpretation Comments CREATINE KINASE TOTAL (BEAKER) 113 U/L 29-200 (test code = 380) CREATINE KINASE-MB (BEAKER) (test 2.1 ng/mL 0.0-6.6 code = 750) CREATINE KINASE-MB INDEX (BEAKER) 1.9 % (test code = 395) Effective 03/22/2014: CK-MB Reference Range ChangeNew: 0.0-6.6 Previous: 0.0-4.9CK-MB Reference Range:<6.7 Normal6.7-10.0 Borderline>10.0 AbnormalTROPONIN [id number] 05:09:00 Test Item Value Reference Range Interpretation [...] acidosis, acute neurological disease, and persistent tachyarrhythmia.LIPID [id number] 05:02:00 Test Item Value Reference Range Interpretation [...] 100-129 Borderline 130-159 High 160-189 Very High >=190BASI METABOLIC [id number] 05:02:00 Test Item Value Reference Range Interpretation [...] PATIEN TS. CREATINE KINASE (CK), TOTAL AND [id number] 00:43:00 Test Item Value Reference Range Interpretation Comments CREATINE KINASE TOTAL (BEAKER) 137 U/L 29-200 (test code = 380) CREATINE KINASE-MB (BEAKER) (test 2.6 ng/mL 0.0-6.6 code = 750) CREATINE KINASE-MB INDEX (BEAKER) 1.9 % (test code = 395) Effective 03/22/2014: CK-MB Reference Range ChangeNew: 0.0-6.6 Previous: 0.0-4.9CK-MB Reference Range:<6.7 Normal6.7-10.0 Borderline>10.0 AbnormalTROPONIN [id number] 00:43:00 Test Item Value Reference Range Interpretation [...] renalfailure, acidosis, acute neurological disease, and persistent tachyarrhythmia.[id number] 00:36:00 Test Item Value Reference Range Interpretation Comments LIPASE (BEAKER) (test code = 749) 34 U/L 8-78 COMPREHENSIVE METABOLIC [id number] 00:36:00 Test Item Value Reference Range Interpretation [...] S NOT APPLICABLE FOR DIALYSIS PATIEN TS. [id number] 00:28:00 Test Item Value Reference Range Interpretation [...] of thrombosis is within 95-100% range. PROTHROMBIN TIME/[id number] 00:24:00 Test Item Value Reference Range Interpretation [...]
[2020-04-15 19:09] LABS: Absolute Lymphocytes (CBC) 1.2 K/uL (0.7-4.9); Hematocrit 32.3 % (39.6-49.0); Lymphocytes % 9.5 % (15.3-44.8); MPV 8.6 fL (7.6-11.3); RBC Red Blood Cell Count 3.43 M/uL (4.33-5.43)
[2020-04-15 19:21] LABS: Protime INR 1.18
[2020-04-15] MEDS ORDERED: NA CHLORIDE 0.9% 500 ML ONE (19:29)
--- NOTE | 2020-04-15 19:32 | RAD REPORT ---
EXAM DESCRIPTION: CT - Head Brain Wo Cont - 04/15/2020 7:23 pm CLINICAL HISTORY: Alteration of awareness/confusion COMPARISON: March 2020 TECHNIQUE: Computed axial tomography of the head was obtained. IV contrast was not requested. All CT scans are performed using dose optimization technique as appropriate and may include automated exposure control or mA/KV adjustment according to patient size. FINDINGS: An intracranial bleed is not seen . The ventricles are normal in caliber. No extra-axial fluid collection is noted. Moderate low-density areas within periventricular, deep and subcortical white matter likely represent ischemic changes secondary to small vessel disease. Fluid within the sinuses/ mastoids is not seen. IMPRESSION: No acute intracranial abnormality is seen. If patient's symptoms persist MRI of the bra in would be recommended.
[2020-04-15 19:34] LABS: ALT/SGPT 17 U/L (12-78); AST/SGOT 21 U/L (15-37); Albumin 2.7 g/dL (3.4-5.0); Alkaline Phosphatase 84 U/L (45-117); BUN Blood Urea Nitrogen 16 mg/dL (7-18); Bicarbonate 27 mmol/L (21-32); Bilirubin Direct 0.1 mg/dL (0-0.2); Bilirubin Total 0.3 mg/dL (0.2-1.0); Glucose Level 149 mg/dL (74-106); Magnesium 1.9 mg/dL (1.8-2.4); NT PRO-BNP 2353 pg/mL (<450); Potassium 3.9 mmol/L (3.5-5.1); Protein, Total 6.1 g/dL (6.4-8.2); Sodium Level 141 mmol/L (136-145); Troponin (Emerg Dept Use Only) < 0.02 ng/mL (0.0-0.045)
--- NOTE | 2020-04-15 20:07 | RAD REPORT ---
EXAM DESCRIPTION: [place] Single View04/15/2020 7:44 pm CLINICAL HISTORY: Cough COMPARISON: 2016 FINDINGS: The lungs appear clear of acute infiltrate. The heart is normal size IMPRESSION: No acute abnormalities displayed
[2020-04-15 21:14] LABS: Urine Blood TRACE (NEG); Urine Glucose NEGATIVE (NEG); Urine Protein NEGATIVE (NEG); Urine pH 6.5 (5.0-7.0)
[2020-04-15 21:55] LABS: Urine Blood TRACE (NEG); Urine Glucose NEGATIVE (NEG); Urine Protein NEGATIVE (NEG); Urine pH 6.5 (5.0-7.0)
[2020-04-15 22:50] LABS: Urine Amorphous Sediment 1+ /HPF (NONE SEEN); Urine Bacteria 20-50 /HPF (NONE SEEN); Urine Mucus 2+ /HPF (NONE SEEN)
[2020-04-15] MEDS ORDERED: CEFTRIAXONE/SWI 1gm 1 GM/10 ML SYR ONE (23:07)
--- NOTE | 2020-04-15 23:09 | ER ---
Nurse's Notes [facility] Name: Angel Robb Age: 84 yrs Sex: Male : 1935 Arrival Date: 04/15/2020 Time: 18:42 Bed 5 Private MD: Diagnosis: Urinary tract infection, site not specified;Hypotension;Orthostatic hypotension Presentation: 04/15 18:42 Chief complaint: EMS states: [facility] staff reported pt was eating dinner, slumped aa5 over and became unresponsive. EMS reports pt was responsive to painful stimuli upon their arrival and BP was 60/30s and now 90/60 after 250mls NS bolus just LARD REFINER. Pt currently back to baseline, A\T\O x person and able to follow commands. 18:42 Coronavirus screen: Client denies travel out of the [place] in the last 14 days. At this aa5 time, the client does not indicate any symptoms associated with coronavirus-19. Ebola Screen: Patient negative for fever greater than or equal to 101.5 degrees Fahrenheit, and additional compatible Ebola Virus Disease symptoms. Initial Sepsis Screen: Does the patient meet any 2 criteria? Systolic BP < 90 mmHg. Does the patient have a suspected source of infection? No. Patient's initial sepsis screen is negative. Risk Assessment: Do you want to hurt yourself or someone else? Unable to obtain. Onset of symptoms was April 15, 2020. 18:42 Acuity: GAVINO 2 aa5 18:42 Method Of Arrival: EMS: [facility] aa5 18:42 Care prior to arrival: IV initiated. 20 GA, in the left forearm, Glucose check: 180. 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 - Social history:: Smoking status: unknown. Screenin:11 Abuse screen: Denies threats or abuse. Denies injuries from another. Nutritional rv screening: No deficits noted. Tuberculosis screening: No symptoms or risk factors identified. Fall Risk None identified. Assessment: 19:00 General: Appears comfortable, Behavior is calm. rv 19:00 Pain: Denies pain. Neuro: Level of Consciousness is confused, Oriented to none. rv Cardiovascular: Patient's skin is warm and dry. Respiratory: Airway is patent Respiratory effort is even, unlabored. Derm: Skin is intact. Vital Signs: 18:42 BP 68 / 56 Sitting; Pulse 84; Resp 18 S; Temp 97.5(O); Pulse Ox 96% on R/A; aa5 18:45 BP 98 / 50 Supine; Pulse 65; Resp 16 S; Pulse Ox 99% on 2 lpm NC; aa5 18:48 BP 93 / 48; Pulse 64; Resp 16 S; Pulse Ox 100% on 2 lpm NC; aa5 19:27 BP 112 / 43 Supine; Pulse 69; Resp 18; Pulse Ox 100% on R/A; rv 19:32 BP 105 / 57 Sitting; Pulse 65; Resp 17; Pulse Ox 100% ; rv 20:00 BP 125 / 56; Pulse 69; Resp 16; Pulse Ox 100% ; rv 21:00 BP 118 / 60; Pulse 71; Resp 16; Pulse Ox 100% on R/A; rv 22:00 BP 113 / 58; Pulse 70; Resp 17; Pulse Ox 100% ; rv 22:56 BP 116 / 52; Pulse 72; Resp 16; Pulse Ox 100% on R/A; rv ED Course: 18:42 Patient arrived in ED. aa5 18:42 Tyrese Perez NP is PHCP. pm1 18:42 Miguel Tse MD is Attending Physician. pm1 18:42 Arm band placed on Patient placed in an exam room, on a stretcher. aa5 18:46 Triage completed. aa5 18:53 Initial lab(s) drawn, by nd, sent to lab. Inserted saline lock: 20 gauge in right kj1 antecubital area, using aseptic technique. Blood collected. 19:07 Percy Carson, RONNIE is Primary Nurse. rv 19:24 CT Head Brain wo Cont In Process Unspecified. EDMS 19:30 Patient has correct armband on for positive identification. rv 19:45 XRAY Chest (1 view) In Process Unspecified. EDMS 21:30 No provider procedures requiring assistance completed. Straight cath inserted, using rv sterile technique, 16 Fr. Specimen obtained. Returned angel urine. Patient tolerated well. 23:08 Sunil Leigh FNP-C is Hospitalizing Provider. pm1 23:10 Thor Jesus DO is Hospitalizing Provider. la1 23:15 First set of blood cultures drawn by me. rv 23:30 Second set of blood cultures drawn by me. rv Administered Medications: 19:35 Drug: NS 0.9% 500 ml Route: IV; Rate: bolus; Site: right antecubital; rv 22:52 Drug: Rocephin 1 grams Route: IV; Rate: calculated rate; Site: right antecubital; rv Outcome: 23:09 Decision to Hospitalize by Provider. pm1 04/16 01:06 Patient left the ED. rv Signatures: Dispatcher [employer] EDMS Tri Jaime RN RN aa5 Sunil Leigh FNP-C FNP-Cla1 Tyrese Perez, TRANSACTIONAL PARALEGAL TRANSACTIONAL PARALEGAL pm1 Percy Carson RN RN rv Marisol Rodriguez kj1
--- NOTE | 2020-04-15 23:10 | EDPHYS ---
Physician Documentation [facility] Name: Angel Robb Age: 84 yrs Sex: Male : 1935 Arrival Date: 04/15/2020 Time: 18:42 Bed 5 Private MD: ED Physician Miguel Tse HPI: 04/15 18:56 This 84 yrs old Male presents to ER via EMS with complaints of Altered Mental pm1 Status, Syncope. 18:56 The patient presents with decreased mental status. Onset: The symptoms/episode pm1 began/occurred just prior to arrival. Possible causes: unknown. Associated signs and symptoms: The patient has no apparent associated signs or symptoms. Current symptoms: In the emergency department the patient's symptoms have resolved, Patient back to his baseline . Patient's baseline: Neuro: orientated to person, Motor: no deficits. Patient from care home. He was at dinner and became unresponsive. On EMS arrival he was responsive to painful stimuli and was hypotensive. Given 250 NS by EMS and has returned to his baseline. 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 - Social history:: Smoking status: unknown. ROS: 18:56 Unable to obtain ROS due to baseline dementia. pm1 18:56 Constitutional: Negative for fever, chills, and weight loss. pm1 18:56 Respiratory: Positive for cough. 18:56 Abdomen/GI: Negative for vomiting. 18:56 Neuro: Positive for altered mental status, information obtained from EMS. Exam: 18:56 Head/Face: Normocephalic, atraumatic. Chest/axilla: Normal chest wall appearance and pm1 motion. Nontender with no deformity. No lesions are appreciated. 18:56 Back: No spinal tenderness. No costovertebral tenderness. Full range of motion. 18:56 Skin: Warm, dry with normal turgor. Normal color with no rashes, no lesions, and no evidence of cellulitis. MS/ Extremity: Pulses equal, no cyanosis. Neurovascular intact. Full, normal range of motion. 18:56 Constitutional: The patient appears in no acute distress, alert, awake, comfortable, non-diaphoretic, non-toxic, well developed, well groomed, well nourished. 18:56 Cardiovascular: Exam negative for acute changes, Rate: normal, Rhythm: regular, Pulses: no pulse deficits are appreciated, Edema: is not appreciated. 18:56 Respiratory: Exam negative for acute changes, the patient does not display signs of respiratory distress, Respirations: normal, Breath sounds: are clear throughout. 18:56 Abdomen/GI: Exam negative for acute changes, Inspection: abdomen appears normal, Palpation: abdomen is soft and non-tender, in all quadrants. 18:56 Neuro: Exam negative for acute changes, Orientation: to person, place, Motor: is normal, moves all fours. Vital Signs: 18:42 BP 68 / 56 Sitting; Pulse 84; Resp 18 S; Temp 97.5(O); Pulse Ox 96% on R/A; aa5 18:45 BP 98 / 50 Supine; Pulse 65; Resp 16 S; Pulse Ox 99% on 2 lpm NC; aa5 18:48 BP 93 / 48; Pulse 64; Resp 16 S; Pulse Ox 100% on 2 lpm NC; aa5 19:27 BP 112 / 43 Supine; Pulse 69; Resp 18; Pulse Ox 100% on R/A; rv 19:32 BP 105 / 57 Sitting; Pulse 65; Resp 17; Pulse Ox 100% ; rv 20:00 BP 125 / 56; Pulse 69; Resp 16; Pulse Ox 100% ; rv 21:00 BP 118 / 60; Pulse 71; Resp 16; Pulse Ox 100% on R/A; rv 22:00 BP 113 / 58; Pulse 70; Resp 17; Pulse Ox 100% ; rv 22:56 BP 116 / 52; Pulse 72; Resp 16; Pulse Ox 100% on R/A; rv MDM: 18:42 Patient medically screened. pm1 21:18 Data reviewed: vital signs. Data interpreted: Pulse oximetry: on room air is 100 %. pm1 Interpretation: normal. 23:04 Counseling: I had a detailed discussion with the patient and/or guardian regarding: the pm1 historical points, exam findings, and any diagnostic results supporting the discharge/admit diagnosis, lab results, radiology results, the need for further work-up and treatment in the hospital. 23:04 ED course: Discussed findings with daughter who has power of estate attorney and reasons for pm1 admission. 23:04 ED course: Daughter: Angelia Sigala reports that the patient has had a fall and was pm1 diagnosed with a UTI which resulted in a hospitalization about three weeks ago. He was discharged to care home for rehabilitation and was diagnosed with UTI again. He completed the antibiotics recently. 23:07 Physician consultation: Sunil HADDAD was called at 23:07, was contacted at 23:07, pm1 regarding admission, and will see patient in ED, would like further tests performed, blood culture and lactate. 04/15 18:44 Order name: Basic Metabolic Panel; Complete Time: 19:46 pm1 04/15 18:44 Order name: CBC with Diff; Complete Time: 19:22 pm1 04/15 18:44 Order name: LFT's; Complete Time: 19:46 pm1 04/15 18:44 Order name: Magnesium; Complete Time: 19:46 pm1 04/15 18:44 Order name: NT PRO-BNP; Complete Time: 19:46 pm1 04/15 18:44 Order name: PT-INR; Complete Time: 19:28 pm1 04/15 18:44 Order name: Troponin (emerg Dept Use Only); Complete Time: 19:46 pm1 04/15 18:44 Order name: Urine Microscopic Only; Complete Time: 22:50 pm1 04/15 21:09 Order name: Urine Dipstick--Ancillary (enter results); Complete Time: 21:19 tt3 04/15 21:31 Order name: Urine Dipstick--Ancillary (enter results); Complete Time: 22:02 tt3 04/15 22:51 Order name: Urine Culture EDMS 04/15 23:07 Order name: Blood Culture Adult (2) pm1 04/15 23:07 Order name: Lactate; Complete Time: 23:50 pm1 04/15 23:16 Order name: COVID-19 tt3 04/15 18:44 Order name: CT Head Brain wo Cont; Complete Time: 19:46 pm1 04/15 18:44 Order name: XRAY Chest (1 view); Complete Time: 20:25 pm1 04/15 18:44 Order name: EKG; Complete Time: 18:45 pm1 04/15 18:44 Order name: Cardiac monitoring; Complete Time: 19:15 pm1 04/15 18:44 Order name: EKG - Nurse/Tech; Complete Time: 19:15 pm1 04/15 18:44 Order name: IV Saline Lock; Complete Time: 19:15 pm1 04/15 18:44 Order name: Labs collected and sent; Complete Time: 19:16 pm1 04/15 18:44 Order name: O2 Per Protocol; Complete Time: 19:16 pm1 04/15 18:44 Order name: O2 Sat Monitoring; Complete Time: 19:16 pm1 04/15 18:44 Order name: Urine Dipstick-Ancillary (obtain specimen); Complete Time: 22:44 pm1 04/15 18:45 Order name: Orthostatic Blood Pressure: supine and seated only; Complete Time: 19:50 pm1 04/16 00:51 Order name: SARS-COV-2 RT PCR EDMS Administered Medications: 19:35 Drug: NS 0.9% 500 ml Route: IV; Rate: bolus; Site: right antecubital; rv 22:52 Drug: Rocephin 1 grams Route: IV; Rate: calculated rate; Site: right antecubital; rv Disposition: 04/16 18:08 Co-signature as Attending Physician, Miguel Tse MD I agree with the assessment and tone plan of care. Disposition: 04/15/20 23:09 Hospitalization ordered by Thor Jesus for Observation. Preliminary diagnosis are Hypotension, Urinary tract infection, site not specified, Orthostatic hypotension. - Bed requested for Telemetry/MedSurg (observation). - Status is Observation. rv - Condition is Stable. - Problem is new. - Symptoms have improved. Signatures: Dispatcher [employer] EDMS Brinda Do RN RN kl Anderson, Corey, MD MD cha Calderon, Audri RN RN aa5 Sunil Leigh FNP-C FNP-Cla1 Tyrese Perez, GRADUATION COACH GRADUATION COACH pm1 Percy Carson RN RN rv Corrections: (The following items were deleted from the chart) 04/15 23:10 23:09 Hospitalization Ordered by Sunil GOTTIC for Observation. Preliminary la1 diagnosis is HypotensionUrinary tract infection, site not specified; Orthostatic hypotension. Bed requested for Telemetry/MedSurg (observation). Status is Observation. Condition is Stable. Problem is new. Symptoms have improved. pm1 23:40 23:10 04/15/2020 23:09 Hospitalization Ordered by Thor Jesus DO for Observation. kl Preliminary diagnosis is HypotensionUrinary tract infection, site not specified; Orthostatic hypotension. Bed requested for Telemetry/MedSurg (observation). Status is Observation. Condition is Stable. Problem is new. Symptoms have improved. la1 04/16 01:06 12 23:40 04/15/2020 23:09 Hospitalization Ordered by Thor Jesus DO for rv Observation. Preliminary diagnosis is HypotensionUrinary tract infection, site not specified; Orthostatic hypotension. Bed requested for Telemetry/MedSurg (observation). Status is Observation. Condition is Stable. Problem is new. Symptoms have improved. kl
--- NOTE | 2020-04-16 | P.HP ---
Certification for Inpatient Patient admitted to: Observation With expected LOS: <2 Midnights Patient will require the following post-hospital care: Other (Back to senior living) Practitioner: I am a practitioner with admitting privileges, knowledge of patient current condition, hospital course, and medical plan of care. Services: Services provided to patient in accordance with Admission requirements found in Title 42 Section 412.3 of the Code of Federal Regulations <Sunil Leigh - Last Filed: 04/15/20 23:55> Patient admitted to: Observation <CristophillipLeonardoThor - Last Filed: 04/16/20 09:54> Patient History Date of Service: 04/15/20 Primary Care Provider: jail doctor Reason for admission: Ortho static hypotension, urinary tract infection History of Present Illness: 84-year-old male with history of dementia, BPH, hypertension presents to the emergency department for hypertension. [facility], senior living staff reported patient was eating dinner, slumped over and became unresponsive. EMS was called, initial blood pressure was 60/30 which improved with 250 normal saline bolus en route to the emergency department to 90/60. Patient with positive orthostatics vital signs from laying to sitting in the emergency department, given additional 500 cc normal saline bolus. Urine micro significant for urine bacteria 20-50 urine white blood cells 5-10 urine red blood cell 5-10. Mild elevation white blood cell count 12.9 with left shift. ED provider spoke with patient's daughter who stated that he had a recent hospitalization at another facility for hip injury and urinary tract infection, patient was discharged on antibiotics and had reportedly cleared up. Patient's blood pressure improved in the emergency department the given significant orthostatics hypotension and urinary tract infection with recent antibiotic use ED provider wishes to admit patient for further evaluation and management. When I saw the patient in the emergency department he was awake, alert, oriented x1 which is apparently his baseline. Will admit patient for further evaluation and management. Patient is DNR with was confirmed with the daughter. - Past Medical/Surgical History Diabetic: No -: Hypertension -: Arthritis -: Dementia -: BPH -: L Hip replacement Psychosocial/ Personal History: Currently resides in senior living, [facility] side. - Family History Mother -: Hypertension Father -: Lung disease - Social History Smoking Status: Unknown if ever smoked Alcohol use: No CD- Drugs: No Caffeine use: Yes Place of Residence: [facility] <Sunil Leigh - Last Filed: 04/15/20 23:55> Date of Service: 04/16/20 Home medications list reviewed: Yes <Thor Jesus - Last Filed: 04/16/20 09:54> Allergies No Known Allergies Allergy (Unverified 09/08/11 15:37) Home Medications: Acetaminophen [Tylenol] 650 mg PO Q4HP PRN 04/16/20 Aspirin Chewable [Aspirin Chewable*] 81 mg PO DAILY 04/16/20 Atorvastatin Calcium [Lipitor] 10 mg PO BEDTIME 04/16/20 Docusate Sodium 100 mg PO DAILY 04/16/20 Ferrous Sulfate [Feosol] 325 mg PO DAILY 04/16/20 Melatonin [Melatonin*] 6 mg PO BEDTIME 04/16/20 OXcarbazepine [Trileptal] 600 mg PO BID 04/16/20 Rivastigmine Patch [Exelon 9.5 mg Patch] 9.5 mg TD DAILY 04/16/20 Sertraline [Zoloft] 25 mg PO DAILY 04/16/20 Tamsulosin [Flomax] 0.8 mg PO BEDTIME 04/16/20 Trazodone HCl 50 mg PO BEDTIME 04/16/20 lisinopriL [Lisinopril] 20 mg PO BID 04/16/20 Review of Systems is unable to be obtained <Sunil Leigh - Last Filed: 04/15/20 23:55> Physical Examination - Physical Exam General: Alert, In no apparent distress, Oriented x1 HEENT: Atraumatic, Normocephalic, Other (Mucous membranes dry) Neck: Supple Respiratory: Diminished (Bilaterally) Cardiovascular: Normal pulses, Regular rate/rhythm, Normal S1 S2 Capillary refill: <2 Seconds Gastrointestinal: Normal bowel sounds, No tenderness, No masses, No rebound Musculoskeletal: No contractures, No erythema, No tenderness Integumentary: No significant lesion, No tenderness/swelling, No erythema Neurological: Normal speech, Normal tone - Studies Laboratory Data (last 24 hrs) 04/15/20 18:54: PT 13.9 H, INR 1.18 04/15/20 18:54: WBC 12.9 H D, Hgb 10.8 L, Hct 32.3 L, Plt Count 231 04/15/20 18:54: Sodium 141, Potassium 3.9, BUN 16, Creatinine 1.08, Glucose 149 H, Magnesium 1.9, Total Bilirubin 0.3, AST 21, ALT 17, Alkaline Phosphatase 84 <Sunil Leigh - Last Filed: 04/15/20 23:55> - Studies Laboratory Data (last 24 hrs) 04/15/20 18:54: PT 13.9 H, INR 1.18 04/15/20 18:54: WBC 12.9 H D, Hgb 10.8 L, Hct 32.3 L, Plt Count 231 04/15/20 18:54: Sodium 141, Potassium 3.9, BUN 16, Creatinine 1.08, Glucose 149 H, Magnesium 1.9, Total Bilirubin 0.3, AST 21, ALT 17, Alkaline Phosphatase 84 <Thor Jesus - Last Filed: 04/16/20 09:54> Assessment and Plan - Plan Assessment Dehydration with orthostatics hypotension Urinary tract infection complicated by a recent urinary tract infection with completed course of antibiotics (unknown what abx) Hypertension BPH Dementia Plan Dehydration with orthostatics hypotension: Patient given 500 cc normal saline bolus the ED, continue with maintenance fluids overnight. Recheck orthostatics lying and sitting in the morning. Anticipate clinical improvement overnight. DVT prophylaxis Lovenox 40 mg subcutaneous once daily. Urinary tract infection complicated by a recent urinary tract infection with completed course of antibiotics (unknown what abx): Urine culture obtained, blood cultures obtained. Lactate negative. Patient does not appear septic at this time. Continue with Rocephin daily. Follow up on urine culture. Hypertension: Obtain and continue home medications. BPH: Obtain and continue home medications. Dementia: Obtain and continue home medications. Discharge Plan: Home Plan to discharge in: 24 Hours - Advance Directives Does patient have a Living Will: No Does patient have a Durable POA for Healthcare: No - Code Status/Comfort Care Code Status Assessed: Yes Critical Care: No Time Spent Managing Pts Care (In Minutes): 55 <Sunil Leigh - Last Filed: 04/15/20 23:55> - Plan Case discussed in detail with nurse practitioner. Agree with plan of care. Please see progress note for details. <Thor Jesus - Last Filed: 04/16/20 09:54>
[2020-04-16] MEDS ORDERED: NA CHLORIDE 0.9% 1,000 ML IV SCH (01:02)
[2020-04-16] MEDS ORDERED: ONDANSETRON 4 MG/2 ML VIAL IV PRN (01:02)
[2020-04-16] MEDS ORDERED: ACETAMINOPHEN 500 MG TAB PO PRN (01:02)
[2020-04-16 01:43] VITALS: BMI 25.7
[2020-04-16 06:09] LABS: Absolute Lymphocytes (CBC) 1.6 K/uL (0.7-4.9); Basophils % 0.8 % (0-1.3); Hematocrit 32.3 % (39.6-49.0); Lymphocytes % 15.7 % (15.3-44.8); MPV 8.5 fL (7.6-11.3); RBC Red Blood Cell Count 3.45 M/uL (4.33-5.43)
[2020-04-16 06:28] LABS: Potassium 3.6 mmol/L (3.5-5.1)
[2020-04-16] MEDS ORDERED: lisinopriL 20 MG TAB PO SCH (09:00)
[2020-04-16] MEDS ORDERED: POTASSIUM 25 MEQ EFFERV TAB PO ONE (09:00)
[2020-04-16] MEDS: CEFTRIAXONE/SWI 1gm 1 GM/10 ML SYR IV SCH (09:00)
[2020-04-16] MEDS ORDERED: CEFTRIAXONE 1 GM/NS 50 ML 1 GM/50 ML BAG IV SCH (09:00)
--- NOTE | 2020-04-16 09:46 | P.PN ---
Subjective Date of Service: 04/16/20 Primary Care Provider: [facility] doctor Chief Complaint: Ortho static hypotension, urinary tract infection Physical Examination - Vital Signs Temperature: 97.7 F Blood Pressure: 177/71 Pulse: 63 Respirations: 20 Pulse Ox (%): 96 - Studies Laboratory Data (last 24 hrs) 04/15/20 18:54: PT 13.9 H, INR 1.18 04/15/20 18:54: WBC 12.9 H D, Hgb 10.8 L, Hct 32.3 L, Plt Count 231 04/15/20 18:54: Sodium 141, Potassium 3.9, BUN 16, Creatinine 1.08, Glucose 149 H, Magnesium 1.9, Total Bilirubin 0.3, AST 21, ALT 17, Alkaline Phosphatase 84 Assessment & Plan Physician Review Additional Text: Assessment Syncope, Hypotension secondary to recurrent UTI with dehydration and orthostatic changes Hypertension with noted syncope and hypotension History of CVA BPH Dementia Depression with anxiety Anemia likely of chronic disease Plan: Syncope, Hypotension secondary to recurrent UTI with dehydration and orthostatic changes: Spoke with his daughter. Patient appears back to his baseline. Orthostatics now unremarkable. Blood pressure is now elevated. Blood pressure medication restarted. Continue with IV fluids and IV antibiotic therapy. Daughter reports patient recently hospitalized for recurrent UTI. Patient also was hospitalized within the past 3 months for CVA. Possible resistant UTI. Await blood and urine culture results. No need for MRI at this time due to his dementia and DNR status. Will review and restart home medication. Will order physical therapy to assess ambulation. Advanced care planning address in detail with daughter. Patient remains DNR. [facility] ACP-30 min. Anticipate [facility] after urine culture results tomorrow. I will turn the service over to the hospitalist team tomorrow. I will go plan of care with him. Hypertension with noted syncope and hypotension: Blood pressure now elevated. Restart medication. Will adjust accordingly. History of CVA: CT scan shows no acute changes. No need for MRI at this time even though patient had syncopal episode. This may be related more to his UTI. Will continue with medication after review. BPH: Continue medication Dementia: Continue medication-aspirin, Lipitor, blood pressure medication. Will add folic acid. Depression with anxiety: Continue his medications Anemia likely of chronic diseaseand hypotension: Will check iron and B12 studies. Patient may require supplementation. Will monitor closely. Time Spent Managing Pts Care (In Minutes): 55
[2020-04-16] MEDS: ENOXAPARIN 40 MG/0.4 ML SQ SCH (09:53)
[2020-04-16] MEDS: DOCUSATE NA 100 MG CAP PO SCH (09:53)
[2020-04-16] MEDS: SERTRALINE HCL 50 MG TAB PO SCH (09:53)
[2020-04-16] MEDS: ASPIRIN 81 MG CHEWABLE TABLET PO SCH (09:53)
[2020-04-16] MEDS: FERROUS SULFATE 325 MG TAB PO SCH (09:53)
[2020-04-16] MEDS: RIVASTIGMINE 9.5 MG/24 HR PATCH TD SCH (10:00)
[2020-04-16] MEDS: OXcarbazepine 150 MG TAB PO SCH ×2 (10:00→21:37)
[2020-04-16] MEDS: NACHLORIDE 0.45% 1,000 ML IV SCH (10:27)
[2020-04-16] MEDS ORDERED: LORazepam 2 MG/ML VIAL IV PRN ×2 (11:28→16:34)
[2020-04-16] MEDS ORDERED: TRAZODONE 50 MG TABLET PO SCH (21:00)
[2020-04-16] MEDS ORDERED: ATORVASTATIN 10 MG TAB PO SCH (21:00)
[2020-04-16] MEDS ORDERED: TAMSULOSIN 0.4 MG SR CAP PO SCH (21:00)
[2020-04-16] MEDS ORDERED: MELATONIN 3 MG TABLET PO SCH (21:00)
[2020-04-16] MEDS: lisinopriL 20 MG TAB PO SCH (21:00)
[2020-04-17] MEDS: NACHLORIDE 0.45% 1,000 ML IV SCH ×2 (01:03→12:40)
[2020-04-17 05:34] LABS: Basophils % 1.3 % (0-1.3); Hematocrit 31.2 % (39.6-49.0); Lymphocytes % 17.6 % (15.3-44.8); MPV 8.7 fL (7.6-11.3); RBC Red Blood Cell Count 3.31 M/uL (4.33-5.43)
[2020-04-17 06:15] LABS: BUN Blood Urea Nitrogen 11 mg/dL (7-18); Bicarbonate 28 mmol/L (21-32); Ferritin 98.6 ng/mL (26-388); Glucose Level 91 mg/dL (74-106); Magnesium 1.8 mg/dL (1.8-2.4); Potassium 3.6 mmol/L (3.5-5.1); Sodium Level 139 mmol/L (136-145); Transferrin 147 mg/dL (200-360)
[2020-04-17] MEDS ORDERED: MAGNESIUM SULFATE 1 gm IVPB 1 GM/100 ML BAG IV ONE (06:22)
[2020-04-17] MEDS ORDERED: FOLIC ACID 1 MG TABLET PO SCH (09:00)
[2020-04-17] MEDS: ASPIRIN 81 MG CHEWABLE TABLET PO SCH (09:18)
[2020-04-17] MEDS: RIVASTIGMINE 9.5 MG/24 HR PATCH TD SCH (09:18)
[2020-04-17] MEDS: lisinopriL 20 MG TAB PO SCH (09:18)
[2020-04-17] MEDS: OXcarbazepine 150 MG TAB PO SCH (09:18)
[2020-04-17] MEDS: SERTRALINE HCL 50 MG TAB PO SCH (09:19)
[2020-04-17] MEDS: DOCUSATE NA 100 MG CAP PO SCH (09:19)
[2020-04-17] MEDS: FERROUS SULFATE 325 MG TAB PO SCH (09:19)
[2020-04-17] MEDS: CEFTRIAXONE/SWI 1gm 1 GM/10 ML SYR IV SCH (09:19)
[2020-04-17] MEDS: ENOXAPARIN 40 MG/0.4 ML SQ SCH (09:20)
[2020-04-17] MEDS ORDERED: CYANOCOBALAMIN 1000MCG/ML INJ IM ONE (09:54)
[2020-04-17] MEDS ORDERED: SOD FERRIC GLUC COMPLX/SUCROSE 125 MG in NA CHLORIDE 0.9% 100 ML IV SCH (10:30)
[2020-04-17 10:47] VITALS: O2SAT 99
[2020-04-17] MEDS ORDERED: AMLODIPINE 10 MG TAB PO SCH (15:24)
[2020-04-17] MEDS ORDERED: HYDRALAZINE HCL 20 MG/ML VIAL IV ONE (15:24)
--- NOTE | 2020-04-17 15:39 | P.DS ---
Discharge Date: 04/17/20 Primary Care Provider: halfway doctor Disposition: TRANSFER TO SNF - MEDICAL Discharge Condition: GOOD Reason for Admission: Ortho static hypotension, urinary tract infection Brief History of Present Illness: Patient is an 84-year-old male with history of dementia, BPH, hypertension presents to the emergency department for hypertension. [facility], [facility] staff reported patient was eating dinner, slumped over and became unresponsive. EMS was called, initial blood pressure was 60/30 which improved with 250 normal saline bolus en route to the emergency department to 90/60. Patient with positive orthostatics vital signs from laying to sitting in the emergency department, given additional 500 cc normal saline bolus. Urine micro significant for urine bacteria 20-50 urine white blood cells 5-10 urine red blood cell 5-10. Mild elevation white blood cell count 12.9 with left shift. ED provider spoke with patient's daughter who stated that he had a recent hospitalization at another facility for hip injury and urinary tract infection, patient was discharged on antibiotics and had reportedly cleared up. Patient's blood pressure improved in the emergency department the given significant orthostatics hypotension and urinary tract infection with recent antibiotic use ED provider wishes to admit patient for further evaluation and management. When I saw the patient in the emergency department he was awake, alert, oriented x1 which is apparently his baseline. Will admit patient for further evaluation and management. Patient is DNR with was confirmed with the daughter. Hospital Course: Patient has been doing well during hospital stay. Patient is back to his baseline. At this time, patient is stable, and we will plan to discharge back to a care home facility placement. Vital Signs/Physical Exam: Temp Pulse Resp BP Pulse Ox 98.0 F 69 18 189/85 H 99 04/17/20 12:00 04/17/20 12:00 04/17/20 12:00 04/17/20 12:00 04/17/20 12:00 General: Alert, In no apparent distress, Demented Laboratory Data at Discharge: WBC 11.6 K/uL (4.3-10.9) H 04/17/20 05:11 Hgb 10.5 g/dL (13.6-17.9) L 04/17/20 05:11 Hct 31.2 % (39.6-49.0) L 04/17/20 05:11 Plt Count 187 K/uL (152-406) 04/17/20 05:11 PT 13.9 SECONDS (9.5-12.5) H 04/15/20 18:54 INR 1.18 04/15/20 18:54 Sodium 139 mmol/L (136-145) 04/17/20 05:11 Potassium 3.6 mmol/L (3.5-5.1) 04/17/20 05:11 BUN 11 mg/dL (7-18) 04/17/20 05:11 Creatinine 0.81 mg/dL (0.55-1.3) 04/17/20 05:11 Glucose 91 mg/dL (74-106) 04/17/20 05:11 Magnesium 1.8 mg/dL (1.8-2.4) 04/17/20 05:11 Total Bilirubin 0.3 mg/dL (0.2-1.0) 04/15/20 18:54 AST 21 U/L (15-37) 04/15/20 18:54 ALT 17 U/L (12-78) 04/15/20 18:54 Alkaline Phosphatase 84 U/L (45-117) 04/15/20 18:54 Home Medications: Acetaminophen [Tylenol] 650 mg PO Q4HP PRN 04/16/20 Aspirin Chewable [Aspirin Chewable*] 81 mg PO DAILY 04/16/20 Docusate Sodium 100 mg PO DAILY 04/16/20 Ferrous Sulfate [Ferrous Sulfate*] 325 mg PO DAILY 04/16/20 Melatonin [Melatonin*] 6 mg PO BEDTIME 04/16/20 OXcarbazepine [Trileptal] 600 mg PO BID 04/16/20 Rivastigmine Patch [Exelon 9.5 mg Patch] 9.5 mg TD DAILY 04/16/20 Sertraline [Zoloft*] 25 mg PO DAILY 04/16/20 Tamsulosin [Flomax*] 0.8 mg PO BEDTIME 04/16/20 Trazodone HCl 50 mg PO BEDTIME 04/16/20 Amlodipine [Norvasc*] 10 mg PO DAILY #30 tab 04/17/20 Atorvastatin Calcium [Lipitor] 40 mg PO BEDTIME #30 tab 04/17/20 Cyanocobalamin [Vitamin B-12*] 1,000 mcg SL DAILY #30 tab 04/17/20 lisinopriL [Lisinopril] 40 mg PO BID #60 tablet 04/17/20 New Medications: Atorvastatin Calcium [Lipitor] 40 mg PO BEDTIME #30 tab lisinopriL [Lisinopril] 40 mg PO BID #60 tablet Amlodipine [Norvasc*] 10 mg PO DAILY #30 tab Cyanocobalamin [Vitamin B-12*] 1,000 mcg SL DAILY #30 tab Patient Discharge Instructions: OK TO DC IV AND DC TO [facility]. FOLLOW-UP WITH PRIMARY CARE PROVIDER IN 1-2 WEEKS. FOLLOW-UP WITH NEUROLOGY IN 1-2 WEEKS. RETURN TO THE ER IF symptoms persist. CALL or TEXT DR. FAIRBANKS AT [phone] IF ANY QUESTIONS REGARDING HOSPITAL STAY. PLEASE CALL THE FLOOR AT [phone] IF ANY MEDICATION OR NURSING QUESTIONS. Diet: AHA Activity: Fall precautions Followup: Niles Luna MD [ASSOCIATE-ACTIVE - CAN ADMIT] - NONE,NONE [Primary Care Provider] - Time spent managing pt's care (in minutes): 35
[2020-04-17 19:13] VITALS: BP 160/74; TEMP 98.6
[2020-04-17] MEDS ORDERED: lisinopriL 20 MG TAB PO SCH (21:00)
[2020-04-18] MEDS ORDERED: CYANOCOBALAMIN 1,000 MCG TAB SL SCH (09:00)
== END 2020-04-17 21:20 ==
LOC: ER 18:33 → ERHOLD 23:21 → 2ND 04-16 00:59
PROVIDERS: ADMIT Family Medicine; ATTEND Hospitalist
DX: I95.1 Orthostatic hypotension (principal); N39.0 Urinary tract infection, site not specified; F03.90 Unspecified dementia, unspecified severity, without behavioral disturbance, psychotic disturbance, mood disturbance, and anxiety; Z20.828 Contact with and (suspected) exposure to other viral communicable diseases; N40.0 Benign prostatic hyperplasia without lower urinary tract symptoms; I10 Essential (primary) hypertension; E86.0 Dehydration; F41.8 Other specified anxiety disorders; D63.8 Anemia in other chronic diseases classified elsewhere; Z86.73 Personal history of transient ischemic attack (TIA), and cerebral infarction without residual deficits; Z96.642 Presence of left artificial hip joint; M19.90 Unspecified osteoarthritis, unspecified site; R94.31 Abnormal electrocardiogram [ECG] [EKG]
CPT/HCPCS: 93005; 87040 ×2; 87088; 85025 ×3; 87086; 80048 ×3; 36415 ×2; 83735 ×2; 87205 ×2; 85610; 80076; 83605; 87077; 87186; 84484; 82728; 82607; 83540; 84145; 83880; 84466; 70450; 71045; 92610; 97112; 97161; 97530 ×3; 51702; 96374; 99284; U0003; J0360; J3420; J1650 ×2; J3475; J2916; J0696 ×3; J7040; J7030; 81003; 81015

== ENCOUNTER 2020-06-05 16:52 | Emergency (ER) | payer OTHER ==
--- OUTSIDE RECORDS SUMMARY | 2020-06-05 16:55 | XMS REPORT | Clinical Summary ---
:1935 Author Organization [facility] Address [address] [place] [address] Care Team Providers Name Role Phone Ana [...] encounter; Cerebrovascular accident (CVA), unspecif ied mechanism ([facility]); Tia, Essential hyper tension; MD Trever Dementia with behavioral disturbance, un specified dementia type ([facility]); Brinda Cabral Encephalopa thy acute MD Tanisha 03/20/2020 Travel 03/20/2020 Documentation Internal Efrain Camara, Medicine Melony Bernard MD after 06/05/2019 Social History Tobacco Use Types Packs/Day Years Used Date Never Smoker Smokeless Tobacco: Never Used Alcohol Use Drinks/Week oz/Week Comments No Sex Assigned at Date Recorded Not on file Last Filed Vital Signs Vital Sign Reading Time Taken Comments Blood Pressure 150/70 03/23/2020 11:33 AM EXCHANGE TROUBLE SHOOTER Pulse 85 03/23/2020 11:33 AM EXCHANGE TROUBLE SHOOTER Temperature 36.6 C (97.9 F) 03/23/2020 11:33 AM EXCHANGE TROUBLE SHOOTER Respiratory Rate 18 03/23/2020 11:33 AM EXCHANGE TROUBLE SHOOTER Oxygen Saturation 96% 03/23/2020 11:33 AM EXCHANGE TROUBLE SHOOTER Inhaled Oxygen Concentration 21% 03/20/2020 9:53 PM EXCHANGE TROUBLE SHOOTER Weight 90.7 kg (200 lb) 03/20/2020 5:38 PM EXCHANGE TROUBLE SHOOTER Height 182.9 cm (6' 0.01") 03/21/2020 1:30 AM EXCHANGE TROUBLE SHOOTER Body Mass Index 27.12 03/20/2020 5:38 PM EXCHANGE TROUBLE SHOOTER Plan of Treatment Health Maintenance Due Date Last Done Comments PNEUMOCOCCAL 65+ YRS (1 of 1 - [id number]) 1998 MEDICARE ANNUAL WELLNESS (YEAR 2 or FIRST YEAR if no 12/05/1999 IPPE) DEPRESSION SCREENING (12+) 05/05/2019 INFLUENZA VACCINE (#1) 2020 Procedures Procedure Name Priority Date/Time Associated Comments Diagnosis (CELLAVISION MANUAL Routine 03/22/2020 4:06 Resu lts for this DIFF) AM EXCHANGE TROUBLE SHOOTER procedure are i n the results section. CBC W/PLT COUNT & Routine 03/22/2020 4:06 Result s for this AUTO DIFFERENTIAL AM EXCHANGE TROUBLE SHOOTER procedure are in the results section. BASIC METABOLIC PANEL Routine 03/22/2020 4:06 Re sults for this (7) AM EXCHANGE TROUBLE SHOOTER procedure are i n the results section. CBC W/PLT COUNT & Routine 03/22/2020 4:06 Result s for this AUTO DIFFERENTIAL AM EXCHANGE TROUBLE SHOOTER procedure are in the results section. 2D ECHO W/ DOPPLER Routine 03/21/2020 8:08 Resul ts for this (CW/PW/COLOR) AM EXCHANGE TROUBLE SHOOTER procedure are in the results section. URINALYSIS W/ REFLEX Routine 03/21/2020 5:24 Res ults for this URINE CULTURE AM EXCHANGE TROUBLE SHOOTER procedure are in the results section. URINE CULTURE Routine 03/21/2020 5:24 Results fo r this AM EXCHANGE TROUBLE SHOOTER procedure are i n the results section. CBC W/PLT COUNT & Routine 03/21/2020 4:14 Result s for this AUTO DIFFERENTIAL AM EXCHANGE TROUBLE SHOOTER procedure are in the results section. RPR Routine 03/21/2020 4:14 Results for this AM EXCHANGE TROUBLE SHOOTER procedure are i n the results section. C-REACTIVE PROTEIN Routine 03/21/2020 4:14 Resul ts for this AM EXCHANGE TROUBLE SHOOTER procedure are i n the results section. VITAMIN B12 AND Routine 03/21/2020 4:14 Results for this FOLATE AM EXCHANGE TROUBLE SHOOTER procedure are i n the results section. LIPID PANEL Routine 03/21/2020 4:14 Results for this AM EXCHANGE TROUBLE SHOOTER procedure are i n the results section. TSH/FREE T4 IF Routine 03/21/2020 4:14 Results f or this INDICATED AM EXCHANGE TROUBLE SHOOTER procedure are i n the results section. HEMOGLOBIN A1C Routine 03/21/2020 4:14 Results f or this AM EXCHANGE TROUBLE SHOOTER procedure are i n the results section. PROTHROMBIN TIME/INR Routine 03/21/2020 4:14 Res ults for this AM EXCHANGE TROUBLE SHOOTER procedure are i n the results section. CBC W/PLT COUNT & Routine 03/21/2020 4:14 Result s for this AUTO DIFFERENTIAL AM EXCHANGE TROUBLE SHOOTER procedure are in the results section. PHOSPHORUS Routine 03/21/2020 4:14 Results for this AM EXCHANGE TROUBLE SHOOTER procedure are i n the results section. MAGNESIUM Routine 03/21/2020 4:14 Results for this AM EXCHANGE TROUBLE SHOOTER procedure are i n the results section. HEPATIC FUNCTION Routine 03/21/2020 4:14 Results for this PANEL AM EXCHANGE TROUBLE SHOOTER procedure are i n the results section. BASIC METABOLIC PANEL Routine 03/21/2020 4:14 Re sults for this (7) AM EXCHANGE TROUBLE SHOOTER procedure are i n the results section. SARS-COV2/RT-PCR STAT 03/21/2020 12:02 Results for this ([facility] REF LABS) AM EXCHANGE TROUBLE SHOOTER procedure are in the results section. CT/CTA CAROTID STAT 03/20/2020 11:40 Results f or this PM EXCHANGE TROUBLE SHOOTER procedure are i n the results section. CTA BRAIN STAT 03/20/2020 11:40 Results for this PM EXCHANGE TROUBLE SHOOTER procedure are i n the results section. XR HIP 2 VIEWS LEFT STAT 03/20/2020 10:29 Resu lts for this PM EXCHANGE TROUBLE SHOOTER procedure are i n the results section. CBC W/PLT COUNT & STAT 03/20/2020 7:23 Result s for this AUTO DIFFERENTIAL PM EXCHANGE TROUBLE SHOOTER procedure are in the results section. BASIC METABOLIC PANEL STAT 03/20/2020 7:23 Re sults for this (7) PM EXCHANGE TROUBLE SHOOTER procedure are i n the results section. PROTHROMBIN TIME/INR STAT 03/20/2020 7:23 Res ults for this PM EXCHANGE TROUBLE SHOOTER procedure are i n the results section. PT/APTT STAT 03/20/2020 7:23 Results for this PM EXCHANGE TROUBLE SHOOTER procedure are i n the results section. CBC W/PLT COUNT & STAT 03/20/2020 7:23 Result s for this AUTO DIFFERENTIAL PM EXCHANGE TROUBLE SHOOTER procedure are in the results section. XR SHOULDER LEFT STAT 03/20/2020 6:33 Results for this COMPLETE MIN 2 VIEWS PM EXCHANGE TROUBLE SHOOTER procedu re are in the results section. PROCEDURAL SEDATION Routine 03/20/2020 6:22 Resu lts for this PM EXCHANGE TROUBLE SHOOTER procedure are i n the results section. XR PELVIS 1 OR 2 STAT 03/20/2020 5:45 Results for this VIEWS PM EXCHANGE TROUBLE SHOOTER procedure are i n the results section. after 06/05/2019 Results Manual Differential (03/22/2020 4:06 AM EXCHANGE TROUBLE SHOOTER) Pathologist Sig nature % Neutros 85 % [facility] % Lymphs 3 % [facility] % Monos 11 % [facility] % Atypical Lymphs 1 (H) 0 - 0 % [facility] # Neutros 11.99 (H) 1.78 - 5.38 K/ul [facility] # Lymphs 0.42 (L) 1.32 - 3.57 K/ul [facility] # Monos 1.55 (H) 0.30 - 0.82 K/uL [facility] # Atypical Lymphs 0.14 (H) 0.00 - 0.00 K/uL [facility] Total Counted 100 [facility] WBC Morphology Normal [facility] Giant Platelet Present [facility] Large Platelet Present [facility] Hypochromia 1+ few [facility] Anisocytosis 1+ few [facility] Poikilocytes 1+ few [facility] Spherocytes 1+ few [facility] Artifact Present [facility] Platelet Conc Adequate [facility] Specimen Blood Narrative Performed At Small Kick Press Operator ETIENNE - Courtney Arce [facility] User comments: Slide comments: Performing Organization Address City/State/Zipcode Phone Number [facility] [address] [place] [address] CENTER CBC with platelet count + automated diff (03/22/2020 4:06 AM EXCHANGE TROUBLE SHOOTER)Only the most recent of3 resultswithin the time period is included. Pathologist Sig nature WBC 14.1 (H) 3.5 - 10.5 K/L [facility] RBC 3.28 (L) 4.63 - 6.08 M/L [facility] Hemoglobin 10.3 (L) 13.7 - 17.5 GM/DL [facility] Hematocrit 31.9 (L) 40.1 - 51.0 % [facility] MCV 97.3 (H) 79.0 - 92.2 fL [facility] MCH 31.4 25.7 - 32.2 pg [facility] MCHC 32.3 32.3 - 36.5 GM/DL [facility] RDW 13.6 11.6 - 14.4 % [facility] Platelets 223 150 - 450 K/CU MM [facility] MPV 10.2 9.4 - 12.4 fL [facility] nRBC 0 0 - 0 /100 WBC [facility] Specimen Blood Performing Organization Address City/State/Zipcode Phone Number [facility] [address] [place] [address] CENTER Basic Metabolic Panel (03/22/2020 4:06 AM EXCHANGE TROUBLE SHOOTER)Only the most recent of3 results within the time period is included. Sodium 139 136 - 145 meq/L [facility] Potassium 4.0 3.5 - 5.1 meq/L [facility] Chloride 105 98 - 107 meq/L [facility] CO2 28 22 - 29 meq/L [facility] BUN 23 (H) 7 - 21 mg/dL [facility] Creatinine 1.19 0.57 - 1.25 [facility] mg/dL [facility] Glucose 117 (H) 70 - 105 mg/dL [facility] Calcium 8.3 (L) 8.4 - 10.2 [facility] mg/dL [facility] EGFR 58Comment: ESTIMATED mL/min/1.73 sq [facility] GFR IS NOT m [facility] CREATININE CLEARANCE IN PREDICTING GLOMERULAR FILTRATION RATE. ESTIMATED GFR IS NOT APPLICABLE FOR DIALYSIS PATIENTS. Specimen Blood Narrative Performed At Small Kick Press Operator ID - EDASI [facility] Performing Organization Address City/State/Zipcode Phone Number [facility] [address] [place] [address] CENTER 2D Echo W/Doppler(CW/PW/Color) (03/21/2020 8:08 AM EXCHANGE TROUBLE SHOOTER) Pathologist Sig nature Ejection Fraction [facility] ECHO [facility]ARTLAB [facility] Specimen Narrative Performed At Transthoracic Echocardiography Report (T TE) [facility] Demographics Patient Name ANGEL VASQUEZ Date of Study 03/21/2020 Gender Male Visit Number [id number] Race Unknown Room Number 1547 Number Date of 1935 Referring Physician Trever Weber Age 84 year(s) Equipment Inspector Zunilda Cabello Dental Instructor Aminata Coopre, Interpreting [facility] Procedure Type of Study TTE procedure:2DECHO [...] External Ris In - 03/21/2020 5:23 PM EXCHANGE TROUBLE SHOOTER Transthoracic Echocardiography Report (TTE) Demographics Patient Name ANGEL VASQUEZ Date of Study 03/21/2020 Gender Male Visit Number [id number] Race Unknown Room [place] [address] Number Date of 1935 Referri Physician Trever Weber Age 84 year(s) Sonogra pher Zunilda Cabello Dental Instructor Aminata Cooper, Interpr eting GEOVANY Nuñez MD Procedure Type of Study TTE procedure:2DECHO [...] TR Gradient: 27.74 mmHg Performing Organization Address City/[facility]/Zipcode Phone Number [facility] ECHO HEARTLAB MKCKESSKAIL[facility] Urinalysis w/Microscopic + Reflex to Culture (03/21/2020 5:24 AM EXCHANGE TROUBLE SHOOTER) Color, UA Yellow [facility] Clarity, UA Clear [facility] Specific [place], >1.050 (H) 1.001 - 1.035 [facility] pH, UA 5.5 5.0 - 8.0 [facility] Protein, UA 20 mg/dL (A) Negative [facility] Glucose, UA Negative Negative [facility] Ketones, UA Negative Negative [facility] Bilirubin, UA Negative Negative [facility] Blood, UA Moderate (A) Negative [facility] Nitrite, UA Negative Negative [facility] Leukocytes, UA Moderate (A) Negative [facility] Urobilinogen, UA 2.0 (H) 0.2 - 1.0 mg/dL [facility] RBC, UA 73 /HPF [facility] WBC, UA 28 /HPF [facility] Bacteria, UA Occasional [facility] Mucus Occasional [facility] Squam Epithel, UA <1 /HPF [facility] Specimen Source [facility] Specimen Urine Narrative Performed At Small Kick Press Operator ID - [auto] [facility] Small Kick Press Operator ID - tech Performing Organization Address City/State/Zipcode Phone Number [facility] [address] [place] [address] CENTER Urine culture (03/21/2020 5:24 AM EXCHANGE TROUBLE SHOOTER) Pathologist Sig nature Result No growth [facility] Specimen Urine - Urine (substance) Performing Organization Address [facility] Phone Number [address] [address] CENTER Vitamin B12 and Folate (03/21/2020 4:14 AM EXCHANGE TROUBLE SHOOTER) Pathologist Sig nature Vitamin B12 289 213 - 816 pg/mL [facility] Folate 12.60 >=7.00 ng/mL [facility] Specimen Blood Narrative Performed At Small Kick Press Operator [facility] Performing Organization Address [facility] Phone Number [address] [address] CENTER TSH/Free T4 If Indicated (03/21/2020 4:14 AM EXCHANGE TROUBLE SHOOTER) Pathologist Sig nature TSH 2.831 0.350 - 4.940 uIU/mL [facility] Specimen Blood Narrative Performed At Small Kick Press Operator ID - [facility] Performing Organization Address [facility] Phone Number [address] [address] CENTER C-Reactive Protein (03/21/2020 4:14 AM EXCHANGE TROUBLE SHOOTER) Pathologist Sig nature CRP 6.14 (H) 0.00 - 0.50 mg/dL [facility] Specimen Blood Narrative Performed At Small Kick Press Operator ID - [facility] Performing Organization Address [facility] Cent[facility]ode Phone Number [address] [address] CENTER RPR (03/21/2020 4:14 AM EXCHANGE TROUBLE SHOOTER) Pathologist Sig nature RPR Nonreactive Nonreactive [facility] Specimen Blood Performing Organization Address City/[facility] Cent[facility]ode Phone Number [address] [address] CENTER Prothrombin time/INR (03/21/2020 4:14 AM EXCHANGE TROUBLE SHOOTER)Only the most recent of2 results within the time period is included. Pathologist Sig nature Protime 15.8 (H) 11.9 - 14.2 seconds [facility] INR 1.30 <=5.90 [facility] Specimen Blood Narrative Performed At Effective 09/30/2018: PT Reference Range [facility] Change New: 11.9-14.2 Previous: 11.7-14.7 RECOMMENDED COUMADIN/WARFARIN INR THERAPY RANGES STANDARD DOSE: 2.0-3.0 Includes: PROPHYLAXIS for venous thrombosis, systemic embolization; TREATMENT for venous thrombosis and/or pulmonary embolus. HIGH RISK: Target INR is 2.5-3.5 for patients wiht mechanical heart valves. Performing Organization Address City/State/Zipcode Phone Number [address] [address] CENTER Phosphorus (03/21/2020 4:14 AM EXCHANGE TROUBLE SHOOTER) Pathologist Sig nature Phosphorus 3.4 2.3 - 4.7 mg/dL [facility] Specimen Blood Narrative Performed At Small Kick Press Operator ID - [facility] Performing Organization Address City/State/Zipcode Phone Number [address] [address] CENTER Magnesium (03/21/2020 4:14 AM EXCHANGE TROUBLE SHOOTER) Pathologist Sig nature Magnesium 1.8 1.6 - 2.6 mg/dL [facility] Specimen Blood Narrative Performed At Small Kick Press Operator ID - [facility] Performing Organization Address City/[facility]/Zipcode Phone Number [address] [address] CENTER Hemoglobin A1c (03/21/2020 4:14 AM EXCHANGE TROUBLE SHOOTER) Pathologist Sig nature Hemoglobin A1C 5.7 4.3 - 6.1 % [facility] Specimen Blood Performing Organization Address City/State/Zipcode Phone Number [address] [address] [place] Hepatic function panel (03/21/2020 4:14 AM EXCHANGE TROUBLE SHOOTER) Pathologist Sig nature Protein, Total 6.1 6.0 - 8.3 gm/dL [facility] Albumin 3.2 (L) 3.5 - 5.0 g/dL [facility] Total Bilirubin 0.8 0.2 - 1.2 mg/dL [facility] Bilirubin, Direct 0.4 0.1 - 0.5 mg/dL [facility] Alkaline Phosphatase 76 40 - 150 U/L [facility] AST 34 5 - 34 U/L [facility] ALT 19 6 - 55 U/L [facility] Specimen Blood Narrative Performed At Small Kick Press Operator ID - EDASI [facility] Performing Organization Address City/State/Zipcode Phone Number [facility] [address] [place] [address] [place] Lipid panel (03/21/2020 4:14 AM EXCHANGE TROUBLE SHOOTER) Pathologist Sig nature Triglycerides 51 mg/dL [facility] Cholesterol 122 mg/dL [facility] [place] HDL 43 mg/dL [facility] [place] LDL Calculated 69 mg/dL [facility] Specimen Blood Narrative Performed At Triglyceride Reference Range: [facility] Low Risk <150 Borderline 150-199 High Risk 200-499 Very High Risk >=500 Cholesterol Reference Range: Low Risk <200 Borderline 200-239 High Risk >240 HDL Cholesterol Reference Range: Low Risk >=60 High Risk <40 LDL Cholesterol Reference Range: Optimal <100 Near Optimal 100-129 Borderline 130-159 High 160-189 Very High >=190 Small Kick Press Operator ID - EDASI Performing Organization Address City/State/Zipcode Phone Number [facility] [address] [place] [address] CENTER SARS-CoV2/RT-PCR (Asymptomatic ONLY) (03/21/2020 12:02 AM EXCHANGE TROUBLE SHOOTER) SARS-COV2/RT-PCR Negative Not Detected, [facility] Negative, See [facility] external report CENTER for linked test SARS-COV-2 [facility] ANGELA [facility] PERFORMING LAB [facility] Specimen Other - Nasopharyngeal wall structure (b ginny structure) Narrative Performed At Negative result for this test determines that [facility] SARS-CoV-2 RNA was not present in the [...] the Act. Fact Sheet for Healthcare Providers: https://www.quidel.com/sites/default/files/pro duct/documents/Fact_Sheet_HC_Providers_Lyra_SA RS-CoV-2.pdf Fact Sheet for Healthcare Patients: https://www.[employer]ashPinoy/sites/default/files/pro duct/documents/Fact_Sheet_Patients_Lyra_SARS-C oV-2.pdf Performing Laboratory: [address] [place] [address] Performing Organization Address City/State/Zipcode Phone Number [address] [address] CENTER CTA carotid (03/20/2020 11:40 PM EXCHANGE TROUBLE SHOOTER) Specimen Narrative Performed At Addendum Begins [employer] [facility] REPORT STATUS:A The following addendum is being [...] External Ris In - 03/21/2020 2:46 AM EXCHANGE TROUBLE SHOOTER Addendum Begins REPORT STATUS:A The following addendum [...] 3:55:04 Performing Organization Address City/State/Zipcode Phone Number [facility] CTA brain (03/20/2020 11:40 PM EXCHANGE TROUBLE SHOOTER) Specimen Narrative Performed At Addendum Begins [employer] RIS REPORT STATUS:A The following addendum is being [...] External Ris In - 03/21/2020 2:46 AM EXCHANGE TROUBLE SHOOTER Addendum Begins REPORT STATUS:A The following addendum [...] use o f iterative reconstructive technique. Signed: Grtechen Fields MD Report Verified Date/Time: 03/21/2020 0 [...] 3:55:04 Performing Organization Address City/State/Zipcode Phone Number [facility] XR hip 2 views left (03/20/2020 10:29 PM EXCHANGE TROUBLE SHOOTER) Specimen Narrative Performed At FINAL REPORT [facility] RAD, HIP, 2-3 VIEWS, LEFT, TO INCL [...] External Ris In - 03/20/2020 10:30 PM EXCHANGE TROUBLE SHOOTER FINAL REPORT RAD, HIP, 2-3 VIEWS, LEFT, [...] 2:20:46 Performing Organization Address City/State/Zipcode Phone Number GE RIS PT/aPTT (03/20/2020 7:23 PM EXCHANGE TROUBLE SHOOTER) Pathologist Sig nature Protime 15.2 (H) 11.9 - 14.2 seconds [facility] INR 1.23 <=5.90 [facility] PTT 28.1 22.5 - 36.0 seconds [facility] Specimen Blood Narrative Performed At Effective 09/30/2018: PT Reference Range [facility] Change New: 11.9-14.2 Previous: 11.7-14.7 RECOMMENDED COUMADIN/WARFARIN INR THERAPY RANGES STANDARD DOSE: 2.0-3.0 Includes: PROPHYLAXIS for venous thrombosis, systemic embolization; TREATMENT for venous thrombosis and/or pulmonary embolus. HIGH RISK: Target INR is 2.5-3.5 for patients wiht mechanical heart valves. Performing Organization Address City/State/Zipcode Phone Number [facility] [address] [place] [address] CENTER XR shoulder complete 2 views min left (03/20/2020 6:33 PM EXCHANGE TROUBLE SHOOTER) Specimen Narrative Performed At FINAL REPORT GE [...] External Ris In - 03/20/2020 7:31 PM EXCHANGE TROUBLE SHOOTER FINAL REPORT TECHNIQUE: Internal/external rotation vi ews [...] 9:29:37 Performing Organization Address City/State/Zipcode Phone Number GE RIS Procedural sedation (03/20/2020 6:22 PM EXCHANGE TROUBLE SHOOTER) Narrative Performed At Gricel Howard MD 03/21 [...] 1 or 2 views (03/20/2020 5:45 PM EXCHANGE TROUBLE SHOOTER) Specimen Narrative Performed At FINAL REPORT [facility] Clinical history: Left hip dislocation Technique: Single [...] Report Verified Date/Time: 03/20/2020 18:16:09 Reading Location: [facility] [id number] Consult R eading Room Procedure Note Interface, External Ris In - 03/20/2020 6:18 PM EXCHANGE TROUBLE SHOOTER FINAL REPORT Clinical history: Left hip dislocation [...] Verified Date/Time: 03/20/2020 1 8:16:09 Reading Location: [facility] [id number] Consult R eading Room Performing Organization Address City/State/Zipcode Phone Number GE RIS after 06/05/2019 Insurance Payer Benefit Plan / Subscriber ID Effective Phone Address T ype Group Dates MEDICARE MEDICARE A B [id number] 1998-Prese Medicare nt HUMANA - HUMANA [id number] 2016-Prese Maps Contracted MEDICARE MGD MEDICARE ADV nt CARE [place] MEDICAID [id number] 2020-Prese MEDICAID [place] nt Advance Directives For more information, please contact: [phone] Type Date Recorded Patient Dynamite Reclaimer Explanati on Advance Directives 03/20/2020 12:00 AM Code Status Date Activated Date Inactivated Comments Full Code 03/21/2020 2:35 AM 03/23/2020 5:28 PM This code status was determined by: Patient Full Code 08/03/2016 3:43 AM 08/03/2016 10:27 PM This code status was determined by: Patient
--- OUTSIDE RECORDS SUMMARY | 2020-06-05 16:57 | XMS REPORT | Continuity of Care Document ---
:1935 Author Organization [facility] t Address [address] [place] [address] Care Team Providers Name Role Phone Sharpless Primary Care Physician César Howard MD Attending Clinician Tia GOODMAN Attending Clinician Denise Lopez MD Attending Clinician CÉSAR HOWARD Attending Clinician Unavailable Efrain Camara MD, Marco Antonio Attending Clinician [phone] STACY ELIZONDO Attending Clinician Unavailable DENISE LOPEZ Admitting Clinician Unavailable OSMAN CHANDRA Admitting Clinician Unavailable Payers Payer Name Policy Type Policy Effective Date Expiration Date Sour ce Number MEDICAREMEDICARE A [id number] 1998 SHAYLA [facility] franc[facility] Fitch [id number] 1998-P 00:00:00 - Medical resentMedicare Center HUMANA - MEDICARE MGD [id number] 2016 [facility] 00:00:00 - Med ical [id number] 2016-P Ce nter resentMaps Contracted VEGA [id number] 2020 [facility] MEDICAIDMEDICAID 00:00:00 - Medica l [id number]/ Ce nter 0-Present Problems Condition Condition Condition Status Onset Resolution Last Treating Co mments Source Name Details Category Date Date Treatment Clinician Date Dislocatio Dislocatio Disease Active 2019-[address] [facility] of left n of left 1-16 [facility] - hip, hip, 00:00: Medical initial initial 00 Center encounter encounter Chest pain Chest pain Disease Active [facility] - [facility]: Medical 00 [place] Positive D Positive D Disease Active [facility] dimer dimer 08-03 [facility] - 00:[facility]: Medical 00 [place] Leg Leg Disease Active [facility] swelling swelling 08-03 [facility] - 00:00: Medical 00 [place] Hypertensi Hypertensi Disease Active [facility] on on [facility] Allergies, Adverse Reactions, Alerts This patient has no known allergies or adverse reactions. Social History Social Habit Start Date Stop Date Quantity Comments Source Sex Assigned At [facility] Tobacco use and 2020-03-21 2020-03-21 Never used [facility] exposure 00:00:00 00:00:00 [facility] Alcohol intake 2020-03-21 2020-03-21 Current [facility] es - 00:00:00 00:00:00 non-drinker of Medical nter alcohol (finding) Smoking Status Start Date Stop Date Source [facility] sm[facility] [place] Medications Ordered Filled Start Stop Current Ordering Indication Dosage Frequency Signature Comments Components Source Medication Medication Date Date Medication? Clinician (SIG) Name Name levoFLOXaci 2019-05- No 500mg Q24H Take [address] n -03-28 tablet [facility] - (LEVAQUIN) 00:00: 23:59 (500 mg Med ical 500 MG 00 :00 total) by [place] tablet mouth daily for 4 days. levoFLOXaci 2019-05- No 500mg Q24H Take [address] n 05-24 tablet [facility] - (LEVAQUIN) 00:00: 00:00 (500 mg Med ical 500 MG 00 :00 total) by Center tablet mouth daily for 4 days. acetaminoph 2019-05 Yes 650mg Take [address] en 1-19 mg by [facility] - (TYLENOL) 15:28: mouth. Medica l 325 MG 45 [place] tablet aspirin 81 2019-05 Yes 81mg Take [address] MG chewable 1-19 by mouth. Jessica es - tablet 15:28: Medical 45 [place] docusate 2019-05 Yes 100mg Take [address] sodium 1-19 mg by [facility] - (COLACE) 15:28: mouth. Medical 100 MG 45 [place] capsule ferrous 2019-05 Yes 325mg Take 325 [facility] sulfate 325 1-19 mg by [facility] - (65 FE) MG 15:28: mouth. Medic al EC tablet 45 [place] lisinopriL 2019-05 Yes 20mg Q.5D Take [address] (PRINIVIL,Z 1-19 by mouth 2 Tomeka kes - ESTRIL) 20 15:28: (two) Medica l MG tablet 45 times Center daily . melatonin 3 2019-05 Yes 6mg QD Take [address] mg Tab 1-19 by mouth [facility] - tablet 15:28: nightly . Medica l 45 [place] OXcarbazepi 2019-05 Yes 300mg Q.5D Take [address] ne 1-19 mg by [facility] - (TRILEPTAL) 15:28: mouth 2 Med ical 150 MG 45 (two) Center tablet times daily . risperiDONE 2019-05 Yes .5mg Take 0.[address] (RisperDAL) 1-19 mg by [facility] - 0.5 MG 15:28: mouth. Medical tablet 45 [place] sertraline 2019-05 Yes 25mg Take [address] (ZOLOFT) 25 19 by mouth. Jessica es - MG tablet 15:28: Medical 45 [place] tamsulosin 2019-05 Yes .8mg Take 0.[address] (FLOMAX) 1-19 mg by [facility] - 0.4 mg Cap 15:28: mouth. Medic al 24 hr 45 [place] capsule traZODone 2019-05 Yes 50mg QD Take [address] (DESYREL) 19 by mouth [facility] - 50 MG 15:28: nightly . Medical tablet 45 [place] rivastigmin 2019-05 Yes 1{patch QD Place [address] e (EXELON) 1-19 } patch onto Jessica es - 4.6 mg/24 15:28: the skin Medi ascencion hr patch 45 daily. [place] furosemide 2019-05- No 20mg Take [address] (LASIX) 20 05-2319 by mouth [facility] - MG tablet 09:35: 00:00 Per EMT, Med ical 57 :00 patient is Center on Lasix, unknown dose, patient doesn't know his meds. . atorvastati 2019-05- Yes 10mg QD Take [address] n (LIPITOR) 05-23 tablet (10 L ukes - 10 MG 00:00: 23:59 mg total) Medica l tablet 00 :00 by mouth Center daily. atorvastati 2019-05- No 10mg QD Take [address] n [...] Source Systolic blood 2020-03-23 11:33:00 150 mm[Hg] [facility] pressure [facility] Diastolic blood 2020-03-23 11:33:00 70 mm[Hg] [facility] Heart rate 2020-03-23 11:33:00 85 /min [facility] Body temperature 2020-03-23 11:33:00 36.61 [facility] Respiratory rate 2020-03-23 11:33:00 18 /min [facility] Oxygen saturation in 2020-03-23 11:33:00 96 /min [facility] Arterial blood by Medical Ce nter Pulse oximetry Body height 2020-03-21 01:30:00 182.9 cm [facility] Body weight 2020-03-20 17:38:00 90.719 kg [facility] BMI 2020-03-20 17:38:00 27.12 kg/m2 [facility] Procedures Procedure Date / Time Performed Performing Clinician Sour e BASIC METABOLIC PANEL 2020-03-22 04:06:00 Brinda Lopez [facility] (7) [facility] CBC W/PLT COUNT & AUTO 2020-03-22 04:06:00 Brinda Lopez [facility] DIFFERENTIAL [facility] (CELLAVISION MANUAL 2020-03-22 04:06:00 Brinda Lopez [facility] - DIFF) [facility] 2D ECHO W/ DOPPLER 2020-03-21 08:08:17 [facility] (CW/PW/COLOR) [facility] URINE CULTURE 2020-03-21 05:24:00 [facility] URINALYSIS W/ REFLEX 2020-03-21 05:24:00 [facility] URINE CULTURE [facility] BASIC METABOLIC PANEL 2020-03-21 04:14:00 [facility] (7) [facility] HEPATIC FUNCTION PANEL 2020-03-21 04:14:00 [facility] MAGNESIUM 2020-03-21 04:14:00 [facility] PHOSPHORUS 2020-03-21 04:14:00 [facility] PROTHROMBIN TIME/INR 2020-03-21 04:14:00 [facility] HEMOGLOBIN A1C 2020-03-21 04:14:00 [facility] TSH/FREE T4 IF INDICATED 2020-03-21 04:14[facility] LIPID PANEL 2020-03-21 04:14:00 [facility] VITAMIN B12 AND FOLATE 2020-03-21 04:14:00 [facility] C-REACTIVE PROTEIN 2020-03-21 04:14:00 [facility] RPR 2020-03-21 04:14:00 [facility] CBC W/PLT COUNT & AUTO 2020-03-21 04:14:00 [facility] SARS-COV2/RT-PCR ([facility] & 2020-03-21 00:02:00 [facility]ver [facility] - REF LABS) [facility] CTA BRAIN 2020-03-20 23:40:00 Carlin Rebollar [facility] CT/CTA CAROTID 2020-03-20 23:40:00 Carlin Rebollar SHAYLA [facility] XR HIP 2 VIEWS LEFT 2020-03-20 22:29:00 Gricel Howard SHAYLA S t [facility] PT/APTT 2020-03-20 19:23:00 Amy Hein [facility] PROTHROMBIN TIME/INR 2020-03-20 19:23:00 Amy Hein [facility] BASIC METABOLIC PANEL 2020-03-20 19:23:00 Amy Hein [facility] - (7) [facility] CBC W/PLT COUNT & AUTO 2020-03-20 19:23:00 Amy Hein [facility] - DIFFERENTIAL [facility] XR SHOULDER LEFT 2020-03-20 18:33:00 Amy Hein [facility] - COMPLETE MIN [address] [facility] [address] PROCEDURAL SEDATION 2020-03-20 18:22:28 Amy Hein [facility] XR PELVIS 1 OR 2 VIEWS 2020-03-20 17:45:00 Esteban Zap[facility] Plan of Care Planned Activity Planned Date Details Comments Source Future Scheduled 2020-01-04 INFLUENZA VACCINE (#1) [facility] Test 00:00:00 [code = INFLUENZA Medical Ce nter VACCINE (#1)] Future Scheduled 2019-05-[address] [facility] - Test 00:00:00 (12+) [code = Medical Center DEPRESSION SCREENING (12+)] Future Scheduled 1999-12-[address] [facility] - Test 00:00:00 WELLNESS (YEAR 2 or Medical Center FIRST YEAR if no IPPE) [code = MEDICARE ANNUAL WELLNESS (YEAR 2 or FIRST YEAR if no IPPE)] Future Scheduled 1998 PNEUMOCOCCAL 65+ YRS [facility] - Test 00:00:00 (1 of 1 - Medical Center [id number] PCV13) [code = PNEUMOCOCCAL 65+ YRS (1 of 1 - [id number] PCV13)] Results Test Description Test Time Test Comments Results Result Comments Source Urine culture 2020-03-23 08:58:00 Test Item Value Reference Range Interpretation Comme nts Result (test code = 6463-4) No growth [facility] + automated [id number] 10:16:00 Test Item Value Reference Range Interpretation [...] 450 K/CU MM MPV (test code = 40820-4) 10.2 fL 9.4-12.4 nRBC (test code = 413) 0 0- 0 /100 WBC Lab Interpretation (test code = Abnormal 63972-4) [facility] CenterManual [id number] 10:16:00 Test Item Value Reference Range Interpretation [...] = 3438) ANGELA (test code = ANGELA) Poke In ID - Courtney Thompson comments: Slide comments: Lab Interpretation Abnormal (test code = 99544-7) [facility] W/PLT COUNT & AUTO [id number] 10:16:00 Test Item Value Reference Range Interpretation [...] CONCENTRATION Adequate (CELLAVISION)(BEAKER) (test code = 3438) Poke In ID - Courtney Thompson comments: Slide comments:Basic Metabolic [id number] 05:24:00 Test Item Value Reference Range Interpretation Comments Sodium (test code = 139 meq/L 007-285 9059-2) Potassium (test code = 4.0 meq/L 3.5-5.1 3-3) Chloride (test code = 105 meq/L 98-107 5-0) CO2 (test code = 28 meq/L 22-29 2027-9) BUN (test code = 23 mg/dL 7-21 H 3094-0) Creatinine (test code 1.19 mg/dL 0.57-1.25 = 2160-0) Glucose (test code = 117 mg/dL 70-105 H 2345-7) Calcium (test code = 8.3 mg/dL 8.4-10.2 L 69900-9) EGFR (test code = 58 mL/min/1.73 [place] [address]-5) NOT ACCURATE CREATININE CLEARANCE IN PREDICTING GLOMERULAR FILTRATION RATE . ESTIMATED GFR I S NOT APPLICABLE FOR DIALYSIS PATIENTS. ANGELA (test code = ANGELA) Poke In ID - EDASI Lab Interpretation Abnormal (test code = 43141-0) [facility] METABOLIC [id number] 05:24:00 Test Item Value Reference Range Interpretation [...] S NOT APPLICABLE FOR DIALYSIS PATIEN TS. Poke In ID - [id number] Echo W/Doppler(CW/PW/Color)2020-03-21 17:23:03Ejection FractionSLEH ECHO HEARTLAB MKCKESSON CPACSInterface, External Ris In - 03/21/2020 5:23 PM CSTTransthoracic Echocardiography Report (TTE) Demographics Patient Name RADHA VASQUEZ Date of Study 03/21/2020 Gender Male Visit Number [id number] Race Unknown Room Number 1547 Number Date of 1935 Referring Physician Trever Weber Age 84 year(s) Distribution Agent Zunilda Cabello Information Delivery Analyst Aminata Cooper, Interpreting Vijay Vann [facility] Physician Procedure Type of Study TTE procedure:2DECHO [...] Valve TR Velocity:2.63 m/s TR Gradient: 27.74 mmHgCedars-Sinai Medical CenterARS-CoV2/RT-PCR (Asymptomatic ONLY)2020-03-21 12:40:00 Test Item Value Reference Range Interpretation Comments SARS-COV2/RT-PCR Negative Not Detected, (test code = Negative, See 81544-5) external report for linked test SARS-COV-[address] [facility] PERFORMING LAB (test code = 31527-1) ANGELA (test code = Negative result for [...] of the Act. Fact Sheet for Healthcare Providers:https://www.[employer]/sites/default/f rodolfo/product/documents/F act_Sheet_HC_Providers_L nld_IJKC-DeU-1.pdf Fact Sheet for Healthcare Patients:https://www.[employer]/sites/default/fi les/product/documents/Fa ct_Sheet_Patients_Lyra_S ARS-CoV-2.pdf Performing Laboratory:[place] [facility] [place], [place] [address]reanna [facility].[place], [place] [address] [place], [place] [address]ARS-COV2/RT-PCR ([facility] & REF LABS)2020-03-21 12:40:00 Test Item Value Reference Range Interpretation Comments SARS-COV2/RT-PCR (test Negative Not Detected, Negative, code = 7413646) See external report for linked test SARS-COV-2 PERFORMING LAB [facility] ANGELA (test code = 6950675) Negative result for this test determines that [...] 564(g) of the Act.Fact Sheet for Healthcare Providers:https://www.[employer]/sites/default/files/product/documents/Fact_Shee g_XM_Oarlepzta_Ayys_YKAH-PzB-1.pdfFact Sheet for Healthcare Patients:https://www.[employer]/sites/default/files/product/ documents/Bduv_Jdbkm_Lusygarp_Vdbx_UMJL-FrH-6.pdfPerforming Laboratory:[place] [facility], [place] [id number] 11:09:00 Test Item Value Reference Range Interpretation Comments RPR (test code = 96525-6) Nonreactive Nonreactive Lab Interpretation (test code = Normal 90622-9) [facility] CenterRPR2020-11-17 11:09:00 Test Item Value Reference Range Interpretation Comments RPR SCREEN (BEAKER) (test code = Nonreactive Nonreactive 420) Hemoglobin [id number] 09:02:00 Test Item Value Reference Range Interpretation Comments Hemoglobin A1C (test code = 4548-4) 5.7 % 4.3-6.1 Lab Interpretation (test code = Normal 99728-0) [facility] CenterHEMOGLOBIN [id number] 09:02:00 Test Item Value Reference Range Interpretation Comments HEMOGLOBIN A1C (BEAKER) (test code = 5.7 % 4.3-6.1 368) Urinalysis w/Microscopic + Reflex to [id number] 07:06:00 Test Item Value Reference Range Interpretation Comments Color, UA (test code = Yellow 5778-6) Clarity, UA (test code = Clear 5767-9) Specific [place], UA >1.050 1.001-1.035 H (test code = 5811-5) pH, UA (test code = 5.5 5.0-8.0 5803-2) Protein, UA (test code = 20 mg/dL Negative A 85353-2) Glucose, UA (test code = Negative Negative 365) Ketones, UA (test code = Negative Negative 2514-8) Bilirubin, UA (test code Negative Negative = 13394-2) Blood, UA (test code = Moderate Negative A 85169-8) Nitrite, UA (test code = Negative Negative 5802-4) Leukocytes, UA (test code Moderate Negative A = 5799-2) Urobilinogen, UA (test 2.0 mg/dL 0.2-1 H code = 74064-5) RBC, UA (test code = 73 /HPF 74727-3) WBC, UA (test code = 28 /HPF 5821-4) Bacteria, UA (test code = Occasional 09992-2) Mucus (test code = Occasional 8247-9) Squam Epithel, UA (test <1 /HPF code = 61511-1) Specimen Source (test code = 2795) ANGELA (test code = ANGELA) Poke In ID - [auto]Poke In ID - tech Lab Interpretation (test Abnormal code = 19358-1) [facility] CenterURINAL[facility]IS W/ REFLEX URINE [id number] 07:06:00 Test Item Value Reference Range Interpretation [...] = 516) SOURCE(BEAKER) (test code = 2795) Poke In ID - [auto]Poke In ID - techTSH/Free T4 If [id number] 05:37:00 Test Item Value Reference Range Interpretation Comments TSH (test code = 2.831 0.350- 4.940 uIU/mL 24901-4) ANGELA (test code = ANGELA) Poke In ID - EDASI Lab Interpretation (test Normal code = 10923-7) [facility] CenterVitamin B12 and [id number] 05:37:00 Test Item Value Reference Range Interpretation Comments Vitamin B12 (test code = 289 pg/mL 973-204 9151-9) Folate (test code = 12.60 ng/mL >=7.00 2284-8) ANGELA (test code = ANGELA) Poke In ID - EDASI Lab Interpretation (test Normal code = 21286-0) [facility] CenterTSH/FREE T4 IF [id number] 05:37:00 Test Item Value Reference Range Interpretation Comments THYROID STIMULATING HORMONE 2.831 uIU/mL 0.350-4.940 (BEAKER) (test code = 772) Poke In ID - EDASIVITAMIN B12 AND [id number] 05:37:00 Test Item Value Reference Range Interpretation Comments VITAMIN B12 (BEAKER) (test code = 289 pg/mL 213-816 774) FOLATE (BEAKER) (test code = 362) 12.60 ng/mL >=7.00 Poke In ID - STEVELipid [id number] 05:15:00 Test Item Value Reference Range Interpretation Comments Triglycerides (test 51 mg/dL code = 2571-8) Cholesterol (test code 122 mg/dL = 2093-3) HDL (test code = 43 mg/dL 2084-9) LDL Calculated (test 69 mg/dL code = 47780-2) ANGELA (test code = ANGELA) Triglyceride Reference Range: Low Risk <150 Borderline 150-199 High Risk 200-499 Very High Risk >=500 Cholesterol Reference Range: Low Risk <200 Borderline 200-239 High Risk >240 HDL Cholesterol Reference Range: Low Risk >=60 High Risk <40 LDL Cholesterol Reference Range: Optimal <100 Near Optimal 100-129 Borderline 130-159 High 160-189 Very High >=190 Poke In ID - STEVE [facility] CenterHepatic function [id number] 05:15:00 Test Item Value Reference Range Interpretation Comments Protein, Total (test code 6.1 6.0- 8.3 gm/dL = 2885-2) Albumin (test code = 3.2 g/dL 3.5-5 L 26679-8) Total Bilirubin (test code 0.8 mg/dL 0.2-1.2 = 1974-) Bilirubin, Direct (test 0.4 mg/dL 0.1-0.5 code = 1967-7) Alkaline Phosphatase (test 76 U/L 40-150 code = 6768-6) AST (test code = 1920-8) 34 U/L 5-34 ALT (test code = 1742-6) 19 U/L 6-55 ANGELA (test code = ANGELA) [facility] Interpretation (test Abnormal code = 62911-9) [facility] CenterMagnesium2020-11-17 05:15:00 Test Item Value Reference Range Interpretation Comments Magnesium (test code = 1.8 mg/dL 1.6-2.6 05844-5) ANGELA (test code = ANGELA) Poke In ID - [facility] Lab Interpretation (test Normal code = 90500-5) [facility] CenterPhosphorus2020-11-17 05:15:00 Test Item Value Reference Range Interpretation Comments Phosphorus (test code = 3.4 mg/dL 2.3-4.7 2777-1) ANGELA (test code = ANGELA) Poke In ID - EDASI Lab Interpretation (test Normal code = 91356-3) [facility] CenterC-Reactive [id number] 05:15:00 Test Item Value Reference Range Interpretation Comments CRP (test code = 676) 6.14 mg/dL 0-0.5 H ANGELA (test code = ANGELA) Poke In ID - EDASI Lab Interpretation (test Abnormal code = 31527-4) [facility] CenterBASIC METABOLIC [id number] 05:15:00 Test Item Value Reference Range Interpretation [...] S NOT APPLICABLE FOR DIALYSIS PATIEN TS. Poke In ID - [id number] 05:15:00 Test Item Value Reference Range Interpretation Comments MAGNESIUM (BEAKER) (test code = 1.8 mg/dL 1.6-2.6 627) Poke In ID - [id number] 05:15:00 Test Item Value Reference Range Interpretation Comments PHOSPHORUS (BEAKER) (test code = 3.4 mg/dL 2.3-4.7 604) Poke In ID - EDASILIPID [id number] 05:15:00 Test Item Value Reference Range Interpretation [...] Borderline 130-159 High 160-189 Very High >=190 Poke In ID - EDASIHEPATIC FUNCTION [id number] 05:15:00 Test Item Value Reference Range Interpretation [...] (test code = 19 U/L 6-55 347) Poke In ID - EDASIC-REACTIVE [id number] 05:15:00 Test Item Value Reference Range Interpretation Comments C-REACTIVE PROTEIN (BEAKER) (test 6.14 mg/dL 0.00-0.50 H code = 676) Poke In ID - EDASICBC W/PLT COUNT & AUTO [id number] 05:10:00 Test Item Value Reference Range Interpretation [...] PERCENT (BEAKER) (test code = 2801) Prothrombin time/[id number] 04:56:00 Test Item Value Reference Range Interpretation [...] valves. Lab Interpretation Abnormal (test code = 22948-1) [facility] CenterPROTHROMBIN TIME/[id number] 04:56:00 Test Item Value Reference Range Interpretation [...] for patients wiht mechanical heart valves.CT, CTANGIO [id number] 02:43:00 Unlisted Reason for Exam - Click Yes and Enter Reason Below->No [facility] : 1935 Sex: MAddendum BeginsREPORT [...] of iterative reconstructive technique. Signed: Gretchen Fields [facility]PITALeport Verified Date/Time: 03/21/2020 02:43:53 Addendum EndsFINAL REPORT [...] Signed: Gretchen Fieldseport Verified Date/Time: 03/20/2020 23:55:04 [facility], CAROTID, [id number] 02:43:00 Unlisted Reason for Exam - Click Yes and Enter Reason Below->No [facility]ASQUE[facility] : 1935 Sex: MAddendum BeginsREPORT [...] Gretchen Fields MDReport Verified Date/Time: 03/20/2020 23:55:04 CTA [id number] 23:55:00Interface, External Ris In - 03/21/2020 2:46 [...] use of iterative reconstructive technique. Signed: Gretchen FieldseportVerified Date/Time: 03/21/2020 02:43:53 Addendum EndsFINAL REPORT EXAM: [...] is recommended for further evaluation. Signed: Gretchen Fieldsort Verified Date/Time: 03/20/2020 23:55:04 [facility] CaliforniaCT[facility] carotid 2020-03-20 23:55:00Interface, External Ris In - [...] use of iterative reconstructive technique. Signed: Gretchen FieldsortVerified Date/Time: 03/21/2020 02:43:53 Addendum EndsFINAL REPORT EXAM: [...] related enhancement of the bilateral common and rn internal medicine al carotid arteries. The vertebral arteries are [...] recommended for further evaluation. Signed: Gretchen Fields [facility] Verified Date/Time: 03/20/2020 23:55:04 [facility] CaliforniaXR hip 2 views [id number] 22:20:00Interface, External Ris In - 03/20/2020 10:30 [...] noted left hip dislocation. Signed: Gretchen Fields MDRepthree rivers healthcare Verified Date/Time: 03/20/2020 22:20:46 [facility]RAD, HIP, 2-3 VIEWS, LEFT, TO INCL PELVIS WHEN [id number] 22:20:00Reason for exam:->post reduction [facility] RADHA VASQUE[facility] : 1935 Sex: MFINAL REPORT [...] Gretchen Fields MDReport Verified Date/Time: 03/20/2020 22:20:46 BASIC METABOLIC [id number] 20:36:00 Test Item Value Reference Range Interpretation [...] S NOT APPLICABLE FOR DIALYSIS PATIEN TS. Poke In ID - BSCBC W/PLT COUNT & AUTO [id number] 20:17:00 Test Item Value Reference Range Interpretation [...] 0-1 PERCENT (BEAKER) (test code = 2801) PT/[id number] 19:57:00 Test Item Value Reference Range Interpretation Comments Protime (test code = 15.2 11.9- 14.2 H 5902-2) seconds INR (test code = 1.23 <=5.90 6301-6) PTT (test code = 28.1 22.5- 36.0 92509-0) seconds ANGELA (test code = ANGELA) Effective 09/30/2018: PT Reference Range ChangeNew: 11.9-14.2 Previous: 11.7-14.7 RECOMMENDED COUMADIN/WARFARIN INR THERAPY RANGESSTANDARD DOSE: 2.0-3.0 Includes: PROPHYLAXIS for venous thrombosis, systemic embolization; TREATMENT for venous thrombosis and/or pulmonary embolus.HIGH RISK: Target INR is 2.5-3.5 for patients wiht mechanical heart valves. Lab Interpretation Abnormal (test code = 54820-2) [facility] CenterPT/[id number] 19:57:00 Test Item Value Reference Range Interpretation [...] is2.5-3.5 for patients wiht mechanical heart valves.PROTHROMBIN TIME/[id number] 19:56:00 Test Item Value Reference Range Interpretation [...] heart valves.RAD, SHOULDER, COMPLETE (MIN 2 VIEWS), [id number] 19:29:00Reason for exam:->L humeral subluxation [facility] : 1935 Sex: MFINAL REPORT [...] 19:29:37 XR shoulder complete 2 views min [id number] 19:29:00Interface, External Ris In - 03/20/2020 7:31 [...] Soft tissues are grossly unremarkable. Signed: Johnson Crzu V erified Date/Time: 03/20/2020 19:29:37 [facility] VistaProcedural [id number] 18:22:28Gricel Howard MD 03/21/2020 2:04 PMProcedural sedation [...] pressure monitoring, continuous capnometry, frequent LOC assessments, quality assurance monitor body, continuous pulse oximetry and frequent vital sign [...] baseline: RR, HR, pulse ox and BPCHI [facility] RAD, PELVIS, 1 OR 2 [id number] 18:16:00Reason for exam:->left hip dislocationShould this be performed at the bedside?->Yes [facility] CENTERName: RADHA VASQUEZ : 1935 Sex: MFINAL REPORT [...] MDReport Verified Date/Time: 03/20/2020 18:16:09 Reading Location: [facility] B1 C013W Consult Reading Room XR pelvis 1 or 2 [id number] 18:16:00Interface, External Ris In - 03/20/2020 6:18 [...] MDReport Verified Date/Time: 03/20/2020 18:16:09 Reading Location: [facility] B1 C013W Consult Reading Room [facility] [id number] 13:09:00 Test Item Value Reference Range Interpretation Comments CREATINE KINASE TOTAL (BEAKER) 125 U/L 29-200 (test code = 380) CREATINE KINASE-MB (BEAKER) (test 2.0 ng/mL 0.0-6.6 code = 750) CREATINE KINASE-MB INDEX (BEAKER) 1.6 % (test code = 395) Effective 03/22/2014: CK-MB Reference Range ChangeNew: 0.0-6.6 Previous: 0.0-4.9CK-MB Reference Range:<6.7 Normal6.7-10.0 Borderline>10.0 AbnormalTROPONIN [id number] 13:09:00 Test Item Value Reference Range Interpretation [...] acidosis, acute neurological disease, and persistent tachyarrhythmia.HEMOGLOBIN [id number] 10:21:00 Test Item Value Reference Range Interpretation Comments HEMOGLOBIN A1C (BEAKER) (test code = 5.5 % 4.3-6.1 368) URINALYSIS W/ [id number] 05:37:00 Test Item Value Reference Range Interpretation [...] = 2795) CBC W/PLT COUNT & AUTO [id number] 05:13:00 Test Item Value Reference Range Interpretation [...] = 417) 0.00CREATINE KINASE (CK), TOTAL AND [id number] 05:09:00 Test Item Value Reference Range Interpretation Comments CREATINE KINASE TOTAL (BEAKER) 113 U/L 29-200 (test code = 380) CREATINE KINASE-MB (BEAKER) (test 2.1 ng/mL 0.0-6.6 code = 750) CREATINE KINASE-MB INDEX (BEAKER) 1.9 % (test code = 395) Effective 03/22/2014: CK-MB Reference Range ChangeNew: 0.0-6.6 Previous: 0.0-4.9CK-MB Reference Range:<6.7 Normal6.7-10.0 Borderline>10.0 AbnormalTROPONIN [id number] 05:09:00 Test Item Value Reference Range Interpretation [...] acidosis, acute neurological disease, and persistent tachyarrhythmia.LIPID [id number] 05:02:00 Test Item Value Reference Range Interpretation [...] 130-159 High 160-189 Very High >=190BASIC METABOLIC [id number] 05:02:00 Test Item Value Reference Range Interpretation [...] PATIEN TS. CREATINE KINASE (CK), TOTAL AND [id number] 00:43:00 Test Item Value Reference Range Interpretation Comments CREATINE KINASE TOTAL (BEAKER) 137 U/L 29-200 (test code = 380) CREATINE KINASE-MB (BEAKER) (test 2.6 ng/mL 0.0-6.6 code = 750) CREATINE KINASE-MB INDEX (BEAKER) 1.9 % (test code = 395) Effective 03/22/2014: CK-MB Reference Range ChangeNew: 0.0-6.6 Previous: 0.0-4.9CK-MB Reference Range:<6.7 Normal6.7-10.0 Borderline>10.0 AbnormalTROPONIN [id number] 00:43:00 Test Item Value Reference Range Interpretation [...] renalfailure, acidosis, acute neurological disease, and persistent tachyarrhythmia.[id number] 00:36:00 Test Item Value Reference Range Interpretation Comments LIPASE (BEAKER) (test code = 749) 34 U/L 8-78 COMPREHENSIVE METABOLIC [id number] 00:36:00 Test Item Value Reference Range Interpretation [...] S NOT APPLICABLE FOR DIALYSIS PATIEN TS. [id number] 00:28:00 Test Item Value Reference Range Interpretation [...] of thrombosis is within 95-100% range. PROTHROMBIN TIME/[id number] 00:24:00 Test Item Value Reference Range Interpretation [...]
[2020-06-05] MEDS ORDERED: LIDOCAINE 1% W/EPI 1:100,000 10 ML VIAL IV ONE (17:56)
--- NOTE | 2020-06-05 17:56 | RAD REPORT ---
EXAM DESCRIPTION: CT - CTHCSPWOC - 06/05/2020 5:34 pm CLINICAL HISTORY: fall, head injury, laceration COMPARISON: No comparisons TECHNIQUE: Axial 5 mm thick images of the head were obtained. Axial 2 mm thick images of the cervic al spine were obtained with sagittal and coronal reconstruction images generated and reviewed. All CT scans are performed using dose optimization technique as appropriate and may include automated exposure control or mA/KV adjustment according to patient size. FINDINGS: No intracranial hemorrhage, mass, edema or acute intracranial finding. No suspicion for ac atka infarction. No cortical edema or sulcal effacement. Patient has advanced atrophy and advanced chr onic ischemic change. Ventricles are in proportion to the amount of volume loss. Dense arterial tree calcifications are present. Mastoid air cells and paranasal sinuses are clear. No globe or orbit abno rmality seen. Cervical bodies are normal in height. Minimal anterior subluxation of C5 on C6 is present secondary t o facet joint degenerative change. Advanced degenerative change and disc space narrowing C6-7. No fra cture or acute bony abnormality. Prominent degenerative change present at the dens anterior arch C1 l evel. Multilevel facet joint degenerative changes seen causing right foraminal stenosis at C 3-4, lef t foraminal stenosis at C4-5 and mild bilateral foraminal encroachment at C5-6 and C6-7. Central bubba l detail is inherently limited. No paraspinal mass or hematoma. IMPRESSION: Patient has advanced atrophy and chronic ischemic change but no acute intracranial findi ng seen. Prominent cervical spine degenerative change as detailed. No fracture or acute finding seen.
--- NOTE | 2020-06-05 18:51 | ER ---
Nurse's Notes [facility] Name: Angel Robb Age: 84 yrs Sex: Male : 1935 Arrival Date: 06/05/2020 Time: 17:01 Bed 4 Private MD: Diagnosis: Fall from chair;Superficial injury of head;Abrasion of scalp;Laceration without foreign body of right eyelid and periocular area-eyebrow Presentation: 06/05 17:02 Chief complaint: EMS states: called fro fall from w/c, fell over, hitting head on wall, sf laceration to left eye and skin tear to top of head, denies loc, normally confused, at baseline, no blood thinners. Coronavirus screen: Client denies travel out of the [place] in the last 14 days. At this time, the client does not indicate any symptoms associated with coronavirus-19. Ebola Screen: No symptoms or risks identified at this time. Initial Sepsis Screen: Does the patient meet any 2 criteria? No. Patient's initial sepsis screen is negative. Does the patient have a suspected source of infection? No. Patient's initial sepsis screen is negative. Risk Assessment: Do you want to hurt yourself or someone else? Patient reports no desire to harm self or others. Onset of symptoms was June 05, 2020. Care prior to arrival: None. Transition of care: patient was received from another setting of care (long-term care facility), [facility]. 17:02 Method Of Arrival: EMS: [facility] 17:02 Acuity: GAVINO 3 sf Triage Assessment: 17:10 General: Appears in no apparent distress. uncomfortable, Behavior is calm, cooperative. sf Pain: Noted to be grimacing, guarding, moaning. Neuro: Level of Consciousness is awake, alert, Oriented to person. Cardiovascular: Patient's skin is warm and dry. Respiratory: Airway is patent Respiratory effort is even, unlabored, Respiratory pattern is regular. Derm: Skin has skin tears on top of head. Injury Description: Laceration sustained to outer aspect of right eyebrow is 0.5 to 2.5 cm long, not bleeding, was sustained 30-60 minutes ago. no active bleeding noted at this time. Historical: - Allergies: 17:10 No Known Allergies; sf - PMHx: 17:10 1st degree AVB; Anemia; Anxiety; BPH; CHF; Cholelithiasis; COVID-19; Dementia; sf Depressive disorder w/ severe psychotic symptoms; Diverticulitis; Glaucoma; Gout; Hypertension; Infective myocarditis; insomnia; osteoarthritis; PVD; - Immunization history:: Adult Immunizations unknown. - Social history:: Smoking status: unknown. Screenin:10 Abuse screen: Denies threats or abuse. Denies injuries from another. Nutritional jl7 screening: No deficits noted. Tuberculosis screening: No symptoms or risk factors identified. Fall Risk Fall in past 12 months (25 points). Assessment: 17:10 General: See triage assessment. jl7 18:10 Reassessment: Patient appears in no apparent distress at this time. No changes from jl7 previously documented assessment. Patient and/or family updated on plan of care and expected duration. Pain level reassessed. 18:57 Reassessment: report given to Ruddy at [facility]. 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 iw 19:12 Reassessment: Patient and/or family updated on plan of care and expected duration. Pain ea level reassessed. Pt resting with eyes closed, respirations even and unlabored. Awaiting on [facility] for transportation back to facility. 19:46 Reassessment: Patient and/or family updated on plan of care and expected duration. Pain ea level reassessed. Pt alert. Respirations even and unlabored, chest expansions even and symmetrical. No s/s of pain or discomfort noted at this time. Pt left ED via stretcher per [facility], pt tolerating well. Vital Signs: 17:02 BP 139 / 82; Pulse 82; Resp 16 S; Temp 98.6(O); Pulse Ox 99% on R/A; sf 19:02 BP 164 / 70; Pulse 77; Resp 15; Pulse Ox 99% ; jl7 ED Course: 17:01 Patient arrived in ED. sf 17:02 [facility]eline Rodriguez FNP-C [facility] kb 17:02 Sasha Nath MD is Attending Physician. kb 17:08 Triage completed. sf 17:10 Arm band placed on right wrist. sf 17:10 Patient has correct armband on for positive identification. Bed in low position. Call jl7 light in reach. Side rails up X2. telemetry monitor on. Pulse ox on. NIBP on. 18:30 Wound care: to laceration located on outer aspect of right eyebrow Patient tolerated sf poorly. 18:35 Assist provider with laceration repair on outer aspect of right eyebrow that was 2.5 jl7 cm. or less using sutures. Set up tray. Performed by Celine HADDAD Patient tolerated well. 18:59 Matthew Caban, RN is Primary Nurse. jl7 19:03 Patient did not have IV access during this emergency room visit. jl7 Administered Medications: 18:15 Drug: Lidocaine-Epinephrine -1%: (1:100,000) 1 vials {Note: admin by reshma ryan.} sf Volume: 20 ml; Route: Infiltration; Site: wound; 19:01 Follow up: Response: No adverse reaction jl7 Outcome: 18:48 Discharge ordered by . kb 19:48 Discharged to [facility]. Report called to Receiving nurse at [facility] Transfer ea form completed. 19:48 Condition: stable 19:48 Discharge instructions given to EMS, Instructed on discharge instructions, follow up and referral plans. Demonstrated understanding of instructions. 19:48 Patient left the ED. ea Signatures: Celine Rodriguez FNP-C FNP-Rochelle Berger, Matthew Keating RN, RN RONNIE jlGenesis Milton, Madhu Rosales RN, ea, RN RN sf
--- NOTE | 2020-06-05 18:51 | EDPHYS ---
Physician Documentation [facility] Name: Angel Robb Age: 84 yrs Sex: Male : 1935 Arrival Date: 06/05/2020 Time: 17:01 Bed 4 Private MD: ED Physician Sasha Nath HPI: 06/05 20:16 This 84 yrs old Male presents to ER via EMS with complaints of Fall Injury. kb 20:16 Details of fall: The patient fell from seated position, out of a chair. Onset: The kb symptoms/episode began/occurred just prior to arrival. Associated injuries: The patient sustained injury to the head, hematoma, laceration, 3 cm(s). Severity of symptoms: At their worst the symptoms were mild, moderate, in the emergency department the symptoms are unchanged. The patient has not experienced similar symptoms in the past. The patient has not recently seen a physician. shelter staff states pt was sitting a chair and fell forward onto the floor. Pt his head on furniture causing laceration to right eyebrow. No LOC, pt awake and alert to his normal status. . Historical: - Allergies: 17:10 No Known Allergies; sf - PMHx: 17:10 1st degree AVB; Anemia; Anxiety; BPH; CHF; Cholelithiasis; COVID-19; Dementia; sf Depressive disorder w/ severe psychotic symptoms; Diverticulitis; Glaucoma; Gout; Hypertension; Infective myocarditis; insomnia; osteoarthritis; PVD; - Immunization history:: Adult Immunizations unknown. - Social history:: Smoking status: unknown. ROS: 20:16 Unable to obtain ROS due to baseline dementia. kb 20:21 Constitutional: Negative for fever, chills, and weight loss. kb Exam: 20:23 Constitutional: This is a well developed, well nourished patient who is awake, alert, kb and in no acute distress. 20:23 Head/face: Noted is no obvious of injury or deformity except abrasion(s), that are mild, of the right frontal area, hematoma, that is moderate, of the right frontal area, a laceration(s), that is superficial, 3 cm(s), of the outer aspect of right eyebrow. 20:23 Respiratory: the patient does not display signs of respiratory distress, Respirations: normal. 20:23 Skin: injury, abrasion(s), very small abrasion noted, of the right frontal area, laceration(s), the wound is approximately 3 cm(s), of the outer aspect of right eyebrow, that can be described as clean, no foreign body, linear, without bleeding. 20:23 Neuro: Exam negative for acute changes. Vital Signs: 17:02 BP 139 / 82; Pulse 82; Resp 16 S; Temp 98.6(O); Pulse Ox 99% on R/A; sf 19:02 BP 164 / 70; Pulse 77; Resp 15; Pulse Ox 99% ; jl7 Laceration: 20:22 Wound Repair of 3cm ( 1.2in ) subcutaneous laceration to outer aspect of right eyebrow. kb Linear shaped.. Distal neuro/vascular/tendon intact. Anesthesia: Wound infiltrated with 3 mls of 1% lidocaine w/ Epi. Wound prep: Extensive cleansing by nurse, Wound irrigation by nurse. Skin closed with 5 5-0 fast absorbing gut using simple sutures and sterile technique. Patient tolerated well. MDM: 17:02 Patient medically screened. kb 20:22 Data reviewed: vital signs, nurses notes. Data interpreted: Pulse oximetry: on room air kb is 99 %. Interpretation: normal. Counseling: I had a detailed discussion with the patient and/or guardian regarding: the historical points, exam findings, and any diagnostic results supporting the discharge/admit diagnosis, radiology results, the need for outpatient follow up, a family practitioner, to return to the emergency department if symptoms worsen or persist or if there are any questions or concerns that arise at home. 06/05 17:02 Order name: CT Head C Spine kb 06/05 17:57 Order name: CT; Complete Time: 18:00 EDMS 06/05 17:03 Order name: Gloves, Sterile; Complete Time: 17:35 kb 06/05 17:03 Order name: Setup Suture Tray; Complete Time: 17:35 kb Administered Medications: 18:15 Drug: Lidocaine-Epinephrine -1%: (1:100,000) 1 vials {Note: admin by naman ryan} sf Volume: 20 ml; Route: Infiltration; Site: wound; 19:01 Follow up: Response: No adverse reaction jl7 Disposition: 06/06 12:30 Co-signature as Attending Physician, Sasha Nath MD. [email or web address] Disposition: 06/05/20 18:48 Discharged to Home. Impression: Fall from chair, Superficial injury of head, Abrasion of scalp, Laceration without foreign body of right eyelid and periocular area - eyebrow. - Condition is Stable. - Discharge Instructions: Hematoma, [id number], Laceration Care, Adult, Lvzh-hu-Vohl, Head Injury, Adult, [id number]-[id number]. - Medication Reconciliation Form, Thank You Letter, Antibiotic Education, Prescription Opioid Use form. - Follow up: Emergency Department; When: As needed; Reason: Worsening of condition. Follow up: Private Physician; When: 2 - 3 days; Reason: Recheck today's complaints, Continuance of care, Re-evaluation by your physician. Signatures: Dispatcher [employer] EDMS Celine Rodriguez, GONZALO-C ROOM SERVICE CLERK-Genesis Ayon RN RN ea Alzahri, Mohammad, MD MD ma2 Madhu Diaz RN RN Matthew Caban RN jl7 Corrections: (The following items were deleted from the chart) 06/05 19:48 18:48 06/05/2020 18:48 Discharged to Home. Impression: Fall from chair; Superficial ea injury of head; Abrasion of scalp; Laceration without foreign body of right eyelid and periocular area - eyebrow. Condition is Stable. Forms are Medication Reconciliation Form, Thank You Letter, Antibiotic Education, Prescription Opioid Use. Follow up: Emergency Department; When: As needed; Reason: Worsening of condition. Follow up: Private Physician; When: 2 - 3 days; Reason: Recheck today's complaints, Continuance of care, Re-evaluation by your physician. kb
[2020-06-05 23:27] VITALS: TEMP 98.6; O2SAT 99
[2020-06-05 23:29] VITALS: BP 164/70
== END 2020-06-05 19:48 | disposition home or self-care (01) ==
LOC: ER 16:52
PROC: 08QNXZZ Repair Right Upper Eyelid, External Approach (ICD-10-PCS; principal; 2020-06-05)
DX: S01.111A Laceration without foreign body of right eyelid and periocular area, initial encounter (principal); W07.XXXA Fall from chair, initial encounter; Y93.9 Activity, unspecified; Y92.9 Unspecified place or not applicable
CPT/HCPCS: 70450; 72125; 99284

== ENCOUNTER 2020-06-06 08:33 | Emergency (ER) | payer OTHER ==
--- OUTSIDE RECORDS SUMMARY | 2020-06-06 09:01 | XMS REPORT | Clinical Summary ---
:1935 Author Organization [facility] Address [address] [place] [address] Care Team Providers Name Role Phone Ana [...] encounter; Cerebrovascular accident (CVA), unspecif ied mechanism ([facility]LY [facility]); Tia, Essential hyper tension; MD Trever Dementia with behavioral disturbance, un specified dementia type ([facility]ER[facility]); Brinda Cabral Encephalopa thy acute MD Tanisha 03/20/2020 Travel 03/20/2020 Documentation Internal Efrain Camara, Medicine Melony Bernard MD after 06/06/2019 Social History Tobacco Use Types Packs/Day Years Used Date Never Smoker Smokeless Tobacco: Never Used Alcohol Use Drinks/Week oz/Week Comments No Sex Assigned at Date Recorded Not on file Last Filed Vital Signs Vital Sign Reading Time Taken Comments Blood Pressure 150/70 03/23/2020 11:33 AM RESEARCH INVESTIGATOR Pulse 85 03/23/2020 11:33 AM RESEARCH INVESTIGATOR Temperature 36.6 C (97.9 F) 03/23/2020 11:33 AM RESEARCH INVESTIGATOR Respiratory Rate 18 03/23/2020 11:33 AM RESEARCH INVESTIGATOR Oxygen Saturation 96% 03/23/2020 11:33 AM RESEARCH INVESTIGATOR Inhaled Oxygen Concentration 21% 03/20/2020 9:53 PM RESEARCH INVESTIGATOR Weight 90.7 kg (200 lb) 03/20/2020 5:38 PM RESEARCH INVESTIGATOR Height 182.9 cm (6' 0.01") 03/21/2020 1:30 AM RESEARCH INVESTIGATOR Body Mass Index 27.12 03/20/2020 5:38 PM RESEARCH INVESTIGATOR Plan of Treatment Health Maintenance Due Date Last Done Comments PNEUMOCOCCAL 65+ YRS (1 of 1 - [id number]) 1998 MEDICARE ANNUAL WELLNESS (YEAR 2 or FIRST YEAR if no 12/05/1999 IPPE) DEPRESSION SCREENING (12+) 05/05/2019 INFLUENZA VACCINE (#1) 2020 Procedures Procedure Name Priority Date/Time Associated Comments Diagnosis (CELLAVISION MANUAL Routine 03/22/2020 4:06 Resu lts for this DIFF) AM RESEARCH INVESTIGATOR procedure are i n the results section. CBC W/PLT COUNT & Routine 03/22/2020 4:06 Result s for this AUTO DIFFERENTIAL AM RESEARCH INVESTIGATOR procedure are in the results section. BASIC METABOLIC PANEL Routine 03/22/2020 4:06 Re sults for this (7) AM RESEARCH INVESTIGATOR procedure are i n the results section. CBC W/PLT COUNT & Routine 03/22/2020 4:06 Result s for this AUTO DIFFERENTIAL AM RESEARCH INVESTIGATOR procedure are in the results section. 2D ECHO W/ DOPPLER Routine 03/21/2020 8:08 Resul ts for this (CW/PW/COLOR) AM RESEARCH INVESTIGATOR procedure are in the results section. URINALYSIS W/ REFLEX Routine 03/21/2020 5:24 Res ults for this URINE CULTURE AM RESEARCH INVESTIGATOR procedure are in the results section. URINE CULTURE Routine 03/21/2020 5:24 Results fo r this AM RESEARCH INVESTIGATOR procedure are i n the results section. CBC W/PLT COUNT & Routine 03/21/2020 4:14 Result s for this AUTO DIFFERENTIAL AM RESEARCH INVESTIGATOR procedure are in the results section. RPR Routine 03/21/2020 4:14 Results for this AM RESEARCH INVESTIGATOR procedure are i n the results section. C-REACTIVE PROTEIN Routine 03/21/2020 4:14 Resul ts for this AM RESEARCH INVESTIGATOR procedure are i n the results section. VITAMIN B12 AND Routine 03/21/2020 4:14 Results for this FOLATE AM RESEARCH INVESTIGATOR procedure are i n the results section. LIPID PANEL Routine 03/21/2020 4:14 Results for this AM RESEARCH INVESTIGATOR procedure are i n the results section. TSH/FREE T4 IF Routine 03/21/2020 4:14 Results f or this INDICATED AM RESEARCH INVESTIGATOR procedure are i n the results section. HEMOGLOBIN A1C Routine 03/21/2020 4:14 Results f or this AM RESEARCH INVESTIGATOR procedure are i n the results section. PROTHROMBIN TIME/INR Routine 03/21/2020 4:14 Res ults for this AM RESEARCH INVESTIGATOR procedure are i n the results section. CBC W/PLT COUNT & Routine 03/21/2020 4:14 Result s for this AUTO DIFFERENTIAL AM RESEARCH INVESTIGATOR procedure are in the results section. PHOSPHORUS Routine 03/21/2020 4:14 Results for this AM RESEARCH INVESTIGATOR procedure are i n the results section. MAGNESIUM Routine 03/21/2020 4:14 Results for this AM RESEARCH INVESTIGATOR procedure are i n the results section. HEPATIC FUNCTION Routine 03/21/2020 4:14 Results for this PANEL AM RESEARCH INVESTIGATOR procedure are i n the results section. BASIC METABOLIC PANEL Routine 03/21/2020 4:14 Re sults for this (7) AM RESEARCH INVESTIGATOR procedure are i n the results section. SARS-COV2/RT-PCR STAT 03/21/2020 12:02 Results for this ([facility]) AM RESEARCH INVESTIGATOR procedure are in the results section. CT/CTA CAROTID STAT 03/20/2020 11:40 Results f or this PM RESEARCH INVESTIGATOR procedure are i n the results section. CTA BRAIN STAT 03/20/2020 11:40 Results for this PM RESEARCH INVESTIGATOR procedure are i n the results section. XR HIP 2 VIEWS LEFT STAT 03/20/2020 10:29 Resu lts for this PM RESEARCH INVESTIGATOR procedure are i n the results section. CBC W/PLT COUNT & STAT 03/20/2020 7:23 Result s for this AUTO DIFFERENTIAL PM RESEARCH INVESTIGATOR procedure are in the results section. BASIC METABOLIC PANEL STAT 03/20/2020 7:23 Re sults for this (7) PM RESEARCH INVESTIGATOR procedure are i n the results section. PROTHROMBIN TIME/INR STAT 03/20/2020 7:23 Res ults for this PM RESEARCH INVESTIGATOR procedure are i n the results section. PT/APTT STAT 03/20/2020 7:23 Results for this PM RESEARCH INVESTIGATOR procedure are i n the results section. CBC W/PLT COUNT & STAT 03/20/2020 7:23 Result s for this AUTO DIFFERENTIAL PM RESEARCH INVESTIGATOR procedure are in the results section. XR SHOULDER LEFT STAT 03/20/2020 6:33 Results for this COMPLETE MIN 2 VIEWS PM RESEARCH INVESTIGATOR procedu re are in the results section. PROCEDURAL SEDATION Routine 03/20/2020 6:22 Resu lts for this PM RESEARCH INVESTIGATOR procedure are i n the results section. XR PELVIS 1 OR 2 STAT 03/20/2020 5:45 Results for this VIEWS PM RESEARCH INVESTIGATOR procedure are i n the results section. after 06/06/2019 Results Manual Differential (03/22/2020 4:06 AM RESEARCH INVESTIGATOR) Pathologist Sig nature % Neutros 85 % [facility] % Lymphs 3 % [facility] % Monos 11 % [facility] % Atypical Lymphs 1 (H) 0 - 0 % [facility] # Neutros 11.99 (H) 1.78 - 5.38 K/ul [facility] # Lymphs 0.42 (L) 1.32 - 3.57 K/ul [facility] # Monos 1.55 (H) 0.30 - 0.82 K/uL [facility] # Atypical Lymphs 0.14 (H) 0.00 - 0.00 K/uL [facility] Total Counted 100 [facility] WBC Morphology Normal [facility] Giant Platelet Present [facility] Large Platelet Present [facility] Hypochromia 1+ few [facility] Anisocytosis 1+ few [facility] Poikilocytes 1+ few [facility] Spherocytes 1+ few [facility] Artifact Present [facility] Platelet Conc Adequate [facility] Specimen Blood Narrative Performed At [employer] Sales Manager ETIENNE - Courtney Arce [facility] User comments: Slide comments: Performing Organization Address City/State/Zipcode Phone Number [facility] [address] [place] [address] CENTER CBC with platelet count + automated diff (03/22/2020 4:06 AM RESEARCH INVESTIGATOR)Only the most recent of3 resultswithin the time period is included. Pathologist Sig nature WBC 14.1 (H) 3.5 - 10.5 K/L [facility] RBC 3.28 (L) 4.63 - 6.08 M/L [facility] Hemoglobin 10.3 (L) 13.7 - 17.5 GM/DL [facility] Hematocrit 31.9 (L) 40.1 - 51.0 % [facility] MCV 97.3 (H) 79.0 - 92.2 fL [facility] MCH 31.4 25.7 - 32.2 pg [facility] MCHC 32.3 32.3 - 36.5 GM/DL [facility] RDW 13.6 11.6 - 14.4 % [facility] Platelets 223 150 - 450 K/CU MM [facility] MPV 10.2 9.4 - 12.4 fL [facility] nRBC 0 0 - 0 /100 WBC [facility] Specimen Blood Performing Organization Address City/State/Zipcode Phone Number [facility] [address] [place] [address] CENTER Basic Metabolic Panel (03/22/2020 4:06 AM RESEARCH INVESTIGATOR)Only the most recent of3 results within the time period is included. Sodium 139 136 - 145 meq/L [facility] Potassium 4.0 3.5 - 5.1 meq/L [facility] Chloride 105 98 - 107 meq/L [facility] CO2 28 22 - 29 meq/L [facility] BUN 23 (H) 7 - 21 mg/dL [facility] Creatinine 1.19 0.57 - 1.25 [facility] mg/dL [facility] Glucose 117 (H) 70 - 105 mg/dL [facility] Calcium 8.3 (L) 8.4 - 10.2 [facility] mg/dL [facility] EGFR 58Comment: ESTIMATED mL/min/1.73 sq [facility] GFR IS NOT m [facility] CREATININE CLEARANCE IN PREDICTING GLOMERULAR FILTRATION RATE. ESTIMATED GFR IS NOT APPLICABLE FOR DIALYSIS PATIENTS. Specimen Blood Narrative Performed At [employer] Sales Manager ID - EDASI [facility] Performing Organization Address City/State/Zipcode Phone Number [facility] [address] [place] [address] CENTER 2D Echo W/Doppler(CW/PW/Color) (03/21/2020 8:08 AM RESEARCH INVESTIGATOR) Pathologist Sig nature Ejection Fraction [facility] Specimen Narrative Performed At Transthoracic Echocardiography Report (T TE[facility] Demographics Patient Name ANGEL VASQUEZ Date of Study 03/21/2020 Gender Male Visit Number [id number] Race Unknown Room Number 1547 Number Date of 1935 Referring Physician Trever Weber Age 84 year(s) Pss Delivery Professional Zunilda Cabello Pointer Machine Operator Aminata Cooper, Interpreting [facility] Procedure Type of Study TTE [...] External Ris In - 03/21/2020 5:23 PM RESEARCH INVESTIGATOR Transthoracic Echocardiography Report (TTE) Demographics Patient Name ANGEL VASQUEZ Date of Study 03/21/2020 Gender Male Visit Number [id number] Race Unknown Room [place] [address] Number Date of 1935 Referri Physician Trever Weber Age 84 year(s) Sonogra pher Zunilda Caebllo Pointer Machine Operator Aminata Cooper, Interpr eting GEOVANY Nuñez MD [...] TR Gradient: 27.74 mmHg Performing Organization Address City/[facility]/Zipcode Phone Number [facility] Urinalysis w/Microscopic + Reflex to Culture (03/21/2020 5:24 AM RESEARCH INVESTIGATOR) Color, UA Yellow [facility] Clarity, UA Clear [facility] Specific Venus, >1.050 (H) 1.001 - 1.035 [facility] pH, UA 5.5 5.0 - 8.0 [facility] Protein, UA 20 mg/dL (A) Negative [facility] Glucose, UA Negative Negative [facility] Ketones, UA Negative Negative [facility] Bilirubin, UA Negative Negative [facility] Blood, UA Moderate (A) Negative [facility] Nitrite, UA Negative Negative [facility] Leukocytes, UA Moderate (A) Negative [facility] Urobilinogen, UA 2.0 (H) 0.2 - 1.0 mg/dL [facility] RBC, UA 73 /HPF [facility] WBC, UA 28 /HPF [facility] Bacteria, UA Occasional [facility] Mucus Occasional [facility] Squam Epithel, UA <1 /HPF [facility] Specimen Source [facility] Specimen Urine Narrative Performed At [employer] Sales Manager ID - [auto] [facility] [employer] And Del[employer] Sales Manager ID - tech Performing Organization Address City/State/Zipcode Phone Number [facility] [address] [place] [address] CENTER Urine culture (03/21/2020 5:24 AM RESEARCH INVESTIGATOR) Pathologist Sig nature Result No growth [facility] Specimen Urine - Urine (substance) Performing Organization Address [facility] Phone Number [address] [address] CENTER Vitamin B12 and Folate (03/21/2020 4:14 AM RESEARCH INVESTIGATOR) Pathologist Sig nature Vitamin B12 289 213 - 816 pg/mL [facility] Folate 12.60 >=7.00 ng/mL [facility] Specimen Blood Narrative Performed At [employer] Sales [facility] Performing Organization Address [facility] Phone Number [address] [address] CENTER TSH/Free T4 If Indicated (03/21/2020 4:14 AM RESEARCH INVESTIGATOR) Pathologist Sig nature TSH 2.831 0.350 - 4.940 uIU/mL [facility] Specimen Blood Narrative Performed At [employer] Sales Manager [facility] - [facility] Performing Organization Address [facility] Phone Number [address] [address] CENTER C-Reactive Protein (03/21/2020 4:14 AM RESEARCH INVESTIGATOR) Pathologist Sig nature CRP 6.14 (H) 0.00 - 0.50 mg/dL [facility] Specimen Blood Narrative Performed At [employer] Sales Manager [facility] - [facility] Performing Organization Address [facility] Cent[facility]ode Phone Number [address] [address] CENTER RPR (03/21/2020 4:14 AM RESEARCH INVESTIGATOR) Pathologist Sig nature RPR Nonreactive Nonreactive [facility] Specimen Blood Performing Organization Address City/[facility] Phone Number [address] [address] CENTER Prothrombin time/INR (03/21/2020 4:14 AM RESEARCH INVESTIGATOR)Only the most recent of2 results within the time period is included. Pathologist Sig nature Protime 15.8 (H) 11.9 - 14.2 seconds [facility] INR 1.30 <=5.90 [facility] Specimen Blood Narrative Performed At Effective 09/30/2018: PT Reference Range [facility] Change New: 11.9-14.2 Previous: 11.7-14.7 RECOMMENDED COUMADIN/WARFARIN INR THERAPY RANGES STANDARD DOSE: 2.0-3.0 Includes: PROPHYLAXIS for venous thrombosis, systemic embolization; TREATMENT for venous thrombosis and/or pulmonary embolus. HIGH RISK: Target INR is 2.5-3.5 for patients wiht mechanical heart valves. Performing Organization Address City/State/Zipcode Phone Number [address] [address] CENTER Phosphorus (03/21/2020 4:14 AM RESEARCH INVESTIGATOR) Pathologist Sig nature Phosphorus 3.4 2.3 - 4.7 mg/dL [facility] Specimen Blood Narrative Performed At [employer] Sales Manager ID - [facility] Performing Organization Address City/State/Zipcode Phone Number [address] [address] CENTER Magnesium (03/21/2020 4:14 AM RESEARCH INVESTIGATOR) Pathologist Sig nature Magnesium 1.8 1.6 - 2.6 mg/dL [facility] Specimen Blood Narrative Performed At [employer] Sales Manager ID - [facility] Performing Organization Address City/[facility]/Zipcode Phone Number [address] [address] CENTER Hemoglobin A1c (03/21/2020 4:14 AM RESEARCH INVESTIGATOR) Pathologist Sig nature Hemoglobin A1C 5.7 4.3 - 6.1 % [facility] Specimen Blood Performing Organization Address City/State/Zipcode Phone Number [address] [address] [place] Hepatic function panel (03/21/2020 4:14 AM RESEARCH INVESTIGATOR) Pathologist Sig nature Protein, Total 6.1 6.0 - 8.3 gm/dL [facility] Albumin 3.2 (L) 3.5 - 5.0 g/dL [facility] Total Bilirubin 0.8 0.2 - 1.2 mg/dL [facility] Bilirubin, Direct 0.4 0.1 - 0.5 mg/dL [facility] Alkaline Phosphatase 76 40 - 150 U/L [facility] AST 34 5 - 34 U/L [facility] ALT 19 6 - 55 U/L [facility] Specimen Blood Narrative Performed At [employer] Sales Manager ID - EDASI [facility] Performing Organization Address City/State/Zipcode Phone Number [facility] [address] [place] [address] [place] Lipid panel (03/21/2020 4:14 AM RESEARCH INVESTIGATOR) Pathologist Sig nature Triglycerides 51 mg/dL [facility] Cholesterol 122 mg/dL [facility] [place] HDL 43 mg/dL [facility] [place] LDL Calculated 69 mg/dL [facility] Specimen Blood Narrative Performed At Triglyceride Reference Range: [facility] Low Risk <150 Borderline 150-199 High Risk 200-499 Very High Risk >=500 Cholesterol Reference Range: Low Risk <200 Borderline 200-239 High Risk >240 HDL Cholesterol Reference Range: Low Risk >=60 High Risk <40 LDL Cholesterol Reference Range: Optimal <100 Near Optimal 100-129 Borderline 130-159 High 160-189 Very High >=190 [employer] Sales Manager ID - EDASI Performing Organization Address City/State/Zipcode Phone Number [facility] [address] [place] [address] CENTER SARS-CoV2/RT-PCR (Asymptomatic ONLY) (03/21/2020 12:02 AM RESEARCH INVESTIGATOR) SARS-COV2/RT-PCR Negative Not Detected, [facility] Negative, See [facility] external report CENTER for linked test SARS-COV-2 [facility] ANGELA [facility] PERFORMING LAB [facility] Specimen Other - Nasopharyngeal wall structure (b ginny structure) Narrative Performed At Negative result for this test determines that [facility] SARS-CoV-2 RNA was not present in the [...] duct/documents/Fact_Sheet_HC_Providers_Lyra_SA RS-CoV-2.pdf Fact Sheet for Healthcare Patients: https://www.PagerDuty/sites/default/files/pro duct/documents/Fact_Sheet_Patients_Lyra_SARS-C oV-2.pdf Performing Laboratory: [address] [place] [address] Performing Organization Address City/State/Zipcode Phone Number [address] [address] CENTER CTA carotid (03/20/2020 11:40 PM RESEARCH INVESTIGATOR) Specimen Narrative Performed At [employer] [facility] REPORT STATUS:A The following addendum is [...] External Ris In - 03/21/2020 2:46 AM RESEARCH INVESTIGATOR [employer] REPORT STATUS:A The following addendum [...] 3:55:04 Performing Organization Address City/State/Zipcode Phone Number [facility] CTA brain (03/20/2020 11:40 PM RESEARCH INVESTIGATOR) Specimen Narrative Performed At [employer] RIS REPORT STATUS:A The following addendum is [...] External Ris In - 03/21/2020 2:46 AM RESEARCH INVESTIGATOR [employer] REPORT STATUS:A The following addendum [...] 3:55:04 Performing Organization Address City/State/Zipcode Phone Number [facility] XR hip 2 views left (03/20/2020 10:29 PM RESEARCH INVESTIGATOR) Specimen Narrative Performed At FINAL REPORT [facility] RAD, HIP, 2-3 VIEWS, LEFT, TO INCL [...] External Ris In - 03/20/2020 10:30 PM RESEARCH INVESTIGATOR FINAL REPORT RAD, HIP, 2-3 VIEWS, LEFT, [...] Number GE RIS PT/aPTT (03/20/2020 7:23 PM RESEARCH INVESTIGATOR) Pathologist Sig nature Protime 15.2 (H) 11.9 - 14.2 seconds [facility] INR 1.23 <=5.90 [facility] PTT 28.1 22.5 - 36.0 seconds [facility] Specimen Blood Narrative Performed At Effective 09/30/2018: PT Reference Range [facility] Change New: 11.9-14.2 Previous: 11.7-14.7 RECOMMENDED COUMADIN/WARFARIN INR THERAPY RANGES STANDARD DOSE: 2.0-3.0 Includes: PROPHYLAXIS for venous thrombosis, systemic embolization; TREATMENT for venous thrombosis and/or pulmonary embolus. HIGH RISK: Target INR is 2.5-3.5 for patients wiht mechanical heart valves. Performing Organization Address City/State/Zipcode Phone Number [facility] [address] [place] [address] CENTER XR shoulder complete 2 views min left (03/20/2020 6:33 PM RESEARCH INVESTIGATOR) Specimen Narrative Performed At FINAL REPORT GE [...] External Ris In - 03/20/2020 7:31 PM RESEARCH INVESTIGATOR FINAL REPORT TECHNIQUE: Internal/external rotation vi ews [...] GE RIS Procedural sedation (03/20/2020 6:22 PM RESEARCH INVESTIGATOR) Narrative Performed At Gricel Howard MD 03/21 [...] 1 or 2 views (03/20/2020 5:45 PM RESEARCH INVESTIGATOR) Specimen Narrative Performed At FINAL REPORT [facility] Clinical history: Left hip dislocation Technique: [...] Report Verified Date/Time: 03/20/2020 18:16:09 Reading Location: [facility] [id number] Consult R eading Room Procedure Note Interface, External Ris In - 03/20/2020 6:18 PM RESEARCH INVESTIGATOR FINAL REPORT Clinical history: Left hip dislocation [...] Verified Date/Time: 03/20/2020 1 8:16:09 Reading Location: [facility] [id number] Consult R eading Room Performing Organization Address City/State/Zipcode Phone Number GE RIS after 06/06/2019 Insurance Payer Benefit Plan / Subscriber ID Effective Phone Address T ype Group Dates MEDICARE MEDICARE A B [id number] 1998-Prese Medicare nt HUMANA - HUMANA [id number] 2016-Prese Maps Contracted MEDICARE MGD MEDICARE ADV nt CARE [place] MEDICAID [id number] 2020-Prese MEDICAID [place] nt Advance Directives For more information, please contact: [phone] Type Date Recorded Patient Unit Controller Explanati on Advance Directives 03/20/2020 12:00 AM Code Status Date Activated Date Inactivated Comments Full Code 03/21/2020 2:35 AM 03/23/2020 5:28 PM This code status was determined by: Patient Full Code 08/03/2016 3:43 AM 08/03/2016 10:27 PM This code status was determined by: Patient
--- OUTSIDE RECORDS SUMMARY | 2020-06-06 09:03 | XMS REPORT | Continuity of Care Document ---
:[address] [facility] t Address [address] [place] [address] Care Team Providers Name Role Phone Sharpless Primary Care Physician César Howard MD Attending Clinician Tia GOODMAN Attending Clinician Denise Lopez MD Attending Clinician CÉSAR HOWARD Attending Clinician Unavailable Efrain Camara MD, Marco Antonio Attending Clinician [phone] STACY ELIZONDO Attending Clinician Unavailable DENISE LOPEZ Admitting Clinician Unavailable OSMAN CHANDRA Admitting Clinician Unavailable Payers Payer Name Policy Type Policy Effective Date Expiration Date Sour ce Number MEDICAREMEDICARE A [id number] 1998 SHAYLA Bigg francisco Fitch [id number] 1998-P 00:00:00 - Medical resentMedicare Center HUMANA - MEDICARE MGD [id number] 2016 [facility] 00:[facility]:00 - Med ical [id number] 2016-P Ce nter resentMaps Contracted VEGA [id number] 2020 [facility] MEDICAIDMEDICAID 00:00:00 - Medica l [id number]/ Ce nter 0-Present Problems Condition Condition Condition [...] [facility] - [facility] Medical 00 [place] Positive D Positive D Disease Active [facility] dimer dimer 08-03 [facility] Medical 00 [place] Leg Leg Disease Active [facility] swelling swelling 08-03 [facility] - 00:[facility]: Medical 00 [place] Hypertensi Hypertensi Disease Active [facility] on on [facility] Allergies, Adverse Reactions, Alerts This patient has no known allergies or adverse reactions. Social History Social Habit Start Date Stop Date Quantity Comments Source Sex Assigned At [facility] Tobacco use and 2020-03-21 2020-03-[address] [facility] exposure 00:00:00 00:00:00 [facility] Alcohol intake 2020-03-21 2020-03-21 Current [facility] es - 00:00:00 00:00:00 non-drinker of Medical nter alcohol (finding) Smoking Status Start Date Stop Date Source Never smoker [facility] edical [place] Medications Ordered Filled Start Stop Current Ordering Indication Dosage Frequency Signature Comments Components Source Medication Medication Date Date Medication? Clinician (SIG) Name Name levoFLOXaci 2019-05- No 500mg Q24H Take [address] n -03-28 tablet [facility] - (LEVAQUIN) 00:00: 23:59 (500 mg Med ical 500 MG 00 :00 total) by [place] tablet mouth daily for 4 days. levoFLOXaci [...] 15:28: mouth. Medica l 325 MG 45 [place] tablet aspirin 81 2019-05 Yes 81mg Take [address] MG chewable 1-19 by mouth. Jessica es - tablet 15:28: Medical 45 [place] docusate 2019-05 Yes 100mg Take [address] sodium 1-19 mg by [facility] - (COLACE) 15:28: mouth. Medical 100 MG 45 [place] capsule ferrous 2019-05 Yes 325mg Take 325 [facility] sulfate 325 1-19 mg by [facility] - (65 FE) MG 15:28: mouth. Medic al EC tablet 45 [place] lisinopriL 2019-05 Yes 20mg Q.5D Take [address] (PRINIVIL,Z 1-19 by mouth 2 Tomeka kes - ESTRIL) 20 15:28: (two) Medica l MG tablet 45 times Center daily . melatonin 3 2019-05 Yes 6mg QD Take [address] mg Tab 1-19 by mouth [facility] - tablet 15:28: nightly . Medica l 45 [place] OXcarbazepi 2019-05 Yes 300mg Q.5D Take [address] ne 1-19 mg by [facility] - (TRILEPTAL) 15:28: mouth 2 Med ical 150 MG 45 (two) Center tablet times daily . risperiDONE 2019-05 Yes .5mg Take 0.[address] (RisperDAL) 1-19 mg by [facility] - 0.5 MG 15:28: mouth. Medical tablet 45 [place] sertraline 2019-05 Yes 25mg Take [address] (ZOLOFT) 25 19 by mouth. Jesscia es - MG tablet 15:28: Medical 45 [place] tamsulosin 2019-05 Yes .8mg Take 0.[address] (FLOMAX) 1-19 mg by [facility] - 0.4 mg Cap 15:28: mouth. Medic al 24 hr 45 [place] capsule traZODone 2019-05 Yes 50mg QD Take [address] (DESYREL) 19 by mouth [facility] - 50 MG 15:28: nightly . Medical tablet 45 [place] rivastigmin 2019-05 Yes 1{patch QD Place [address] e (EXELON) 1-19 } patch onto Jessica es - 4.6 mg/24 15:28: the skin Medi ascencion hr patch 45 daily. [place] furosemide 2019-05- No 20mg Take 20 mg [...] Source Systolic blood 2020-03-23 11:33:00 150 mm[Hg] [facility] pressure [facility] Diastolic blood 2020-03-23 11:33:00 70 mm[Hg] [facility] Heart rate 2020-03-23 11:33:00 85 /min [facility] Body temperature 2020-03-23 11:33:00 36.61 Joann [facility] Respiratory rate 2020-03-23 11:33:00 18 /min [facility] Oxygen saturation in 2020-03-23 11:33:00 96 /min [facility] Arterial blood by Medical Ce nter Pulse oximetry Body height 2020-03-21 01:30:00 182.9 cm [facility] Body weight 2020-03-20 17:38:00 90.719 kg [facility] BMI 2020-03-20 17:38:00 27.12 kg/m2 [facility] Procedures Procedure Date / Time Performed Performing Clinician Sour e BASIC METABOLIC PANEL 2020-03-22 04:06:00 Brinda Lopez [facility] (7) [facility] CBC W/PLT COUNT & AUTO 2020-03-22 04:06:00 Brinda Lopez [facility] DIFFERENTIAL [facility] (CELLAVISION MANUAL 2020-03-22 04:06:00 Brinda Lopez [facility] - DIFF) [facility] 2D ECHO W/ DOPPLER 2020-03-21 08:08:17 [facility] (CW/PW/COLOR) [facility] URINE CULTURE 2020-03-21 05:24:00 [facility] URINALYSIS W/ REFLEX 2020-03-21 05:24:00 [facility] URINE CULTURE [facility] BASIC METABOLIC PANEL 2020-03-21 04:14:00 [facility] (7) [facility] HEPATIC FUNCTION PANEL 2020-03-21 04:14:00 [facility] MAGNESIUM 2020-03-21 04:14:00 [facility] PHOSPHORUS 2020-03-21 04:14:00 [facility] PROTHROMBIN TIME/INR 2020-03-21 04:14:00 [facility] HEMOGLOBIN A1C 2020-03-21 04:14:00 [facility] TSH/FREE T4 IF INDICATED 2020-03-21 04:14[facility] LIPID PANEL 2020-03-21 04:14:00 [facility] VITAMIN B12 AND FOLATE 2020-03-21 04:14:00 [facility] C-REACTIVE PROTEIN 2020-03-21 04:14:00 [facility] RPR 2020-03-21 04:14:00 [facility] CBC W/PLT COUNT & AUTO 2020-03-21 04:14:00 [facility] SARS-COV2/RT-PCR ([facility] & 2020-03-21 00:02:00 [facility] - REF LABS) [facility] CTA BRAIN 2020-03-20 23:40:00 Carlin Rebollar [facility] CT/CTA CAROTID 2020-03-20 23:40:00 Carlin Rebollar SHAYLA [facility] XR HIP 2 VIEWS LEFT 2020-03-20 22:29:00 Gricel Howard SHAYLA S t [facility] PT/APTT 2020-03-20 19:23:00 Amy Hein [facility] PROTHROMBIN TIME/INR 2020-03-20 19:23:[address] [facility] BASIC METABOLIC PANEL 2020-03-20 19:23:00 Amy Hein [facility] - (7) [facility] CBC W/PLT COUNT & AUTO 2020-03-20 19:23:00 Amy Hein [facility] - DIFFERENTIAL [facility] XR SHOULDER LEFT 2020-03-20 18:33:[address] [facility] s - COMPLETE MIN [address] [facility] [address] PROCEDURAL SEDATION 2020-03-20 18:22:28 Amy Hein [facility] XR PELVIS 1 OR 2 VIEWS 2020-03-20 17:45:00 Esteban Zapata [facility] Plan of Care Planned Activity Planned Date [...] 00:00:00 (1 of 1 - Medical Center [id number] PCV13) [code = PNEUMOCOCCAL 65+ YRS (1 of 1 - IBHD33_Niounvg PCV13)] Results Test Description Test Time Test Comments Results Result Comments Source Urine culture 2020-03-23 08:58:00 Test Item Value Reference Range Interpretation Comme nts Result (test code = 6463-4) No growth [facility] + automated [id number] 10:16:00 Test Item Value Reference Range Interpretation [...] 450 K/CU MM MPV (test code = 21055-8) 10.2 fL 9.4-12.4 nRBC (test code = 413) 0 0- 0 /100 WBC Lab Interpretation (test code = Abnormal 17695-3) [facility] [id number] 10:16:00 Test Item Value Reference Range Interpretation [...] = 3438) ANGELA (test code = ANGELA) Certified Orthoptist ID - Courtney Thompson comments: Slide comments: Lab Interpretation Abnormal (test code = 57046-4) [facility] W/PLT COUNT & AUTO [id number] 10:16:00 Test Item Value Reference Range Interpretation [...] CONCENTRATION Adequate (CELLAVISION)(BEAKER) (test code = 3438) Certified Orthoptist ID - Courtney Thompson comments: Slide comments:Basic Metabolic [id number] 05:24:00 Test Item Value Reference Range Interpretation Comments Sodium (test code = 139 meq/L 370-690 0614-2) Potassium (test code = 4.0 meq/L 3.5-5.1 3-3) Chloride (test code = 105 meq/L 98-107 5-0) CO2 (test code = 28 meq/L 22-29 2027-9) BUN (test code = 23 mg/dL 7-21 H 3094-0) Creatinine (test code 1.19 mg/dL 0.57-1.25 = 2160-0) Glucose (test code = 117 mg/dL 70-105 H 2345-7) Calcium (test code = 8.3 mg/dL 8.4-10.2 L 19653-7) EGFR (test code = 58 mL/min/1.73 [place] [address]-6) NOT ACCURATE CREATININE CLEARANCE IN PREDICTING GLOMERULAR FILTRATION RATE . ESTIMATED GFR I S NOT APPLICABLE FOR DIALYSIS PATIENTS. ANGELA (test code = ANGELA) Certified Orthoptist ID - EDASI Lab Interpretation Abnormal (test code = 44566-0) [facility] METABOLIC [id number] 05:24:00 Test Item Value Reference Range Interpretation [...] S NOT APPLICABLE FOR DIALYSIS PATIEN TS. 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 Fact Sheet for Healthcare Providers:https://www.Abazab/sites/default/f rodolfo/product/documents/F act_Sheet_HC_Providers_L tio_ZIEU-XkH-2.pdf Fact Sheet for Healthcare Patients:https://www.BumpTop/sites/default/fi les/product/documents/Fa ct_Sheet_Patients_Lyra_S ARS-CoV-2.pdf Performing Laboratory:[facility] [place], [place] [address]reanna [facility].[place], [place] [address] [place], [place] [address]ARS-COV2/RT-PCR ([facility] & REF LABS)2020-03-21 12:40:00 Test Item Value Reference Range Interpretation Comments SARS-COV2/RT-PCR (test Negative Not Detected, Negative, code = 7645688) See external report for linked test SARS-COV-2 PERFORMING LAB [facility] ANGELA (test code = 6404146) Negative result for this test determines that [...] 564(g) of the Act.Fact Sheet for Healthcare Providers:https://www.June Blackbox.Gabstr/sites/default/files/product/documents/Fact_Shee a_AC_Qffuuwfkg_Pmjw_JWSS-DiQ-1.pdfFact Sheet for Healthcare Patients:https://www.June Blackbox.Gabstr/sites/default/files/product/ documents/Culv_Ohnnt_Qxvtlktm_Kqdp_FORS-ByL-3.pdfPerforming Laboratory:[facility], [place] [id number] 11:09:00 Test Item Value Reference Range Interpretation Comments RPR (test code = 40875-7) Nonreactive Nonreactive Lab Interpretation (test code = Normal 13452-0) [facility] Hospital[facility]PR2020-11-17 11:09:00 Test Item Value Reference Range Interpretation Comments RPR SCREEN (BEAKER) (test code = Nonreactive Nonreactive 420) Hemoglobin [id number] 09:02:00 Test Item Value Reference Range Interpretation Comments Hemoglobin A1C (test code = 4548-4) 5.7 % 4.3-6.1 Lab Interpretation (test code = Normal 02024-7) [facility] HospitalHEMOGLOBIN [id number] 09:02:00 Test Item Value Reference Range Interpretation Comments HEMOGLOBIN A1C (BEAKER) (test code = 5.7 % 4.3-6.1 368) Urinalysis w/Microscopic + Reflex to [id number] 07:06:00 Test Item Value Reference Range Interpretation Comments Color, UA (test code = Yellow 5778-6) Clarity, UA (test code = Clear 5767-9) Specific [place], UA >1.050 1.001-1.035 H (test code = 5811-5) pH, UA (test code = 5.5 5.0-8.0 5803-2) Protein, UA (test code = 20 mg/dL Negative A 08893-9) Glucose, UA (test code = Negative Negative 365) Ketones, UA (test code = Negative Negative 2514-8) Bilirubin, UA (test code Negative Negative = 67066-3) Blood, UA (test code = Moderate Negative A 92225-5) Nitrite, UA (test code = Negative Negative 5802-4) Leukocytes, UA (test code Moderate Negative A = 5799-2) Urobilinogen, UA (test 2.0 mg/dL 0.2-1 H code = 57698-8) RBC, UA (test code = 73 /HPF 24248-1) WBC, UA (test code = 28 /HPF 5821-4) Bacteria, UA (test code = Occasional 54947-5) Mucus (test code = Occasional 8247-9) Squam Epithel, UA (test <1 /HPF code = 92210-6) Specimen Source (test code = 2795) ANGELA (test code = ANGELA) Certified Orthoptist ID - [auto]Certified Orthoptist ID - tech Lab Interpretation (test Abnormal code = 16509-1) [facility] HospitalURINALYSIS W/ REFLEX URINE [id number] 07:06:00 Test Item Value Reference Range Interpretation [...] = 516) SOURCE(BEAKER) (test code = 2795) Certified Orthoptist ID - [auto]Certified Orthoptist ID - techTSH/Free T4 If [id number] 05:37:00 Test Item Value Reference Range Interpretation Comments TSH (test code = 2.831 0.350- 4.940 uIU/mL 37495-6) ANGELA (test code = ANGELA) Certified Orthoptist ID - EDASI Lab Interpretation (test Normal code = 25806-7) [facility] HospitalVitamin B12 and [id number] 05:37:00 Test Item Value Reference Range Interpretation Comments Vitamin B12 (test code = 289 pg/mL 568-199 1615-9) Folate (test code = 12.60 ng/mL >=7.00 2284-8) ANGELA (test code = ANGELA) Certified Orthoptist ID - EDASI Lab Interpretation (test Normal code = 77837-0) [facility] HospitalTSH/FREE T4 IF [id number] 05:37:00 Test Item Value Reference Range Interpretation Comments THYROID STIMULATING HORMONE 2.831 uIU/mL 0.350-4.940 (BEAKER) (test code = 772) Certified Orthoptist ID - EDASIVITAMIN B12 AND [id number] 05:37:00 Test Item Value Reference Range Interpretation Comments VITAMIN B12 (BEAKER) (test code = 289 pg/mL 213-816 774) FOLATE (BEAKER) (test code = 362) 12.60 ng/mL >=7.00 Certified Orthoptist ID - STEVELipid [id number] 05:15:00 Test Item Value Reference Range Interpretation Comments Triglycerides (test 51 mg/dL code = 2571-8) Cholesterol (test code 122 mg/dL = 2093-3) HDL (test code = 43 mg/dL 2084-9) LDL Calculated (test 69 mg/dL code = 48108-5) ANGELA (test code = ANGELA) Triglyceride Reference Range: Low Risk <150 Borderline 150-199 High Risk 200-499 Very High Risk >=500 Cholesterol Reference Range: Low Risk <200 Borderline 200-239 High Risk >240 HDL Cholesterol Reference Range: Low Risk >=60 High Risk <40 LDL Cholesterol Reference Range: Optimal <100 Near Optimal 100-129 Borderline 130-159 High 160-189 Very High >=190 Certified Orthoptist ID - STEVE [facility] HospitalHepatic function [id number] 05:15:00 Test Item Value Reference Range Interpretation Comments Protein, Total (test code 6.1 6.0- 8.3 gm/dL = 2885-2) Albumin (test code = 3.2 g/dL 3.5-5 L 39338-6) Total Bilirubin (test code 0.8 mg/dL 0.2-1.2 = 1974-) Bilirubin, Direct (test 0.4 mg/dL 0.1-0.5 code = 1967-7) Alkaline Phosphatase (test 76 U/L 40-150 code = 6768-6) AST (test code = 1920-8) 34 U/L 5-34 ALT (test code = 1742-6) 19 U/L 6-55 ANGELA (test code = ANGELA) [facility] Lab Interpretation (test Abnormal code = 07629-0) [facility] HospitalMagnesium2020-11-17 05:15:00 Test Item Value Reference Range Interpretation Comments Magnesium (test code = 1.8 mg/dL 1.6-2.6 39660-2) ANGELA (test code = ANGELA) Certified Orthoptist ID - [facility] Lab Interpretation (test Normal code = 94021-9) [facility] HospitalPhosphorus2020-11-17 05:15:00 Test Item Value Reference Range Interpretation Comments Phosphorus (test code = 3.4 mg/dL 2.3-4.7 2777-1) ANGELA (test code = ANGELA) Certified Orthoptist ID - EDASI Lab Interpretation (test Normal code = 51043-8) [facility] HospitalC-Reactive [id number] 05:15:00 Test Item Value Reference Range Interpretation Comments CRP (test code = 676) 6.14 mg/dL 0-0.5 H ANGELA (test code = ANGELA) Certified Orthoptist ID - EDASI Lab Interpretation (test Abnormal code = 87520-5) [facility] HospitalBASIC METABOLIC [id number] 05:15:00 Test Item Value Reference Range Interpretation [...] S NOT APPLICABLE FOR DIALYSIS PATIEN TS. Certified Orthoptist ID - [id number] 05:15:00 Test Item Value Reference Range Interpretation Comments MAGNESIUM (BEAKER) (test code = 1.8 mg/dL 1.6-2.6 627) Certified Orthoptist ID - [id number] 05:15:00 Test Item Value Reference Range Interpretation Comments PHOSPHORUS (BEAKER) (test code = 3.4 mg/dL 2.3-4.7 604) Certified Orthoptist ID - EDASILIPID [id number] 05:15:00 Test Item Value Reference Range Interpretation [...] Borderline 130-159 High 160-189 Very High >=190 Certified Orthoptist ID - EDASIHEPATIC FUNCTION [id number] 05:15:00 Test Item Value Reference Range Interpretation [...] (test code = 19 U/L 6-55 347) Certified Orthoptist ID - EDASIC-REACTIVE [id number] 05:15:00 Test Item Value Reference Range Interpretation Comments C-REACTIVE PROTEIN (BEAKER) (test 6.14 mg/dL 0.00-0.50 H code = 676) Certified Orthoptist ID - EDASICBC W/PLT COUNT & AUTO [id number] 05:10:00 Test Item Value Reference Range Interpretation [...] PERCENT (BEAKER) (test code = 2801) Prothrombin time/[id number] 04:56:00 Test Item Value Reference Range Interpretation [...] valves. Lab Interpretation Abnormal (test code = 23275-2) [facility] HospitalPROTHROMBIN TIME/[id number] 04:56:00 Test Item Value Reference Range Interpretation [...] for patients wiht mechanical heart valves.CT, CTANGIO [id number] 02:43:00 Unlisted Reason for Exam - Click Yes and Enter Reason Below->No [facility] : 1935 Sex: MAddendum [...] of iterative reconstructive technique. Signed: Gretchen Fields [facility]ITAL[facility]ort Verified Date/Time: 03/21/2020 02:43:53 Addendum EndsFINAL [...] Signed: Gretchen Fieldseport Verified Date/Time: 03/20/2020 23:55:04 [facility] CAROTID, [id number] 02:43:00 Unlisted Reason for Exam - Click Yes and Enter Reason Below->No [facility] : 1935 Sex: MAddendum [...] Fields MDReport Verified Date/Time: 03/20/2020 23:55:04 CTA [id number] 23:55:00Interface, External Ris In - 03/21/2020 2:46 [...] Signed: Gretchen Fieldsort Verified Date/Time: 03/20/2020 23:55:04 [facility] 2020-03-20 23:55:00Interface, External Ris In - [...] related enhancement of the bilateral common and pharmacy grad intern al carotid arteries. The vertebral arteries are [...] recommended for further evaluation. Signed: Gretchen Fields [facility] Verified Date/Time: 03/20/2020 23:55:04 [facility]XR hip 2 views [id number] 22:20:00Interface, External Ris In - 03/20/2020 10:30 [...] noted left hip dislocation. Signed: Gretchen Fields [facility] Verified Date/Time: 03/20/2020 22:20:46 [facility]RAD, HIP, 2-3 VIEWS, LEFT, TO INCL PELVIS WHEN [id number] 22:20:00Reason for exam:->post reduction [facility] : 1935 Sex: MFINAL [...] MDReport Verified Date/Time: 03/20/2020 22:20:46 BASIC METABOLIC [id number] 20:36:00 Test Item Value Reference Range Interpretation [...] S NOT APPLICABLE FOR DIALYSIS PATIEN TS. Certified Orthoptist ID - BSCBC W/PLT COUNT & AUTO [id number] 20:17:00 Test Item Value Reference Range Interpretation [...] 0-1 PERCENT (BEAKER) (test code = 2801) PT/[id number] 19:57:00 Test Item Value Reference Range Interpretation Comments Protime (test code = 15.2 11.9- 14.2 H 5902-2) seconds INR (test code = 1.23 <=5.90 6301-6) PTT (test code = 28.1 22.5- 36.0 09462-0) seconds ANGELA (test code = ANGELA) Effective 09/30/2018: PT Reference Range ChangeNew: 11.9-14.2 Previous: 11.7-14.7 RECOMMENDED COUMADIN/WARFARIN INR THERAPY RANGESSTANDARD DOSE: 2.0-3.0 Includes: PROPHYLAXIS for venous thrombosis, systemic embolization; TREATMENT for venous thrombosis and/or pulmonary embolus.HIGH RISK: Target INR is 2.5-3.5 for patients wiht mechanical heart valves. Lab Interpretation Abnormal (test code = 54428-6) [facility] HospitalPT/[id number] 19:57:00 Test Item Value Reference Range Interpretation [...] is2.5-3.5 for patients wiht mechanical heart valves.PROTHROMBIN TIME/[id number] 19:56:00 Test Item Value Reference Range Interpretation [...] heart valves.RAD, SHOULDER, COMPLETE (MIN 2 VIEWS), [id number] 19:29:00Reason for exam:->L humeral subluxation [facility] CENTERName: RADHA VASQUEZ : 1935 Sex: [...] 19:29:37 XR shoulder complete 2 views min [id number] 19:29:00Interface, External Ris In - 03/20/2020 7:31 [...] Johnson Cruz V erified Date/Time: 03/20/2020 19:29:37 [facility] HospitalProcedural [id number] 18:22:28Gricel Howard MD 03/21/2020 2:04 PMProcedural sedation [...] pressure monitoring, continuous capnometry, frequent LOC assessments, flight radio officer, continuous pulse oximetry and frequent vital sign [...] baseline: RR, HR, pulse ox and BPCHI [facility] RAD, PELVIS, 1 OR 2 [id number] 18:16:00Reason for exam:->left hip dislocationShould this be performed at the bedside?->Yes [facility] CENTERName: RADHA VASQUEZ : 1935 [...] MDReport Verified Date/Time: 03/20/2020 18:16:09 Reading Location: [facility] B1 C013W Consult Reading Room XR pelvis 1 or 2 [id number] 18:16:00Interface, External Ris In - 03/20/2020 6:18 [...] MDReport Verified Date/Time: 03/20/2020 18:16:09 Reading Location: [facility] B1 C013W Consult Reading Room [facility] HospitalCREATINE KINASE (CK), TOTAL AND [id number] 13:09:00 Test Item Value Reference Range Interpretation Comments CREATINE KINASE TOTAL (BEAKER) 125 U/L 29-200 (test code = 380) CREATINE KINASE-MB (BEAKER) (test 2.0 ng/mL 0.0-6.6 code = 750) CREATINE KINASE-MB INDEX (BEAKER) 1.6 % (test code = 395) Effective 03/22/2014: CK-MB Reference Range ChangeNew: 0.0-6.6 Previous: 0.0-4.9CK-MB Reference Range:<6.7 Normal6.7-10.0 Borderline>10.0 AbnormalTROPONIN [id number] 13:09:00 Test Item Value Reference Range Interpretation [...] acidosis, acute neurological disease, and persistent tachyarrhythmia.HEMOGLOBIN [id number] 10:21:00 Test Item Value Reference Range Interpretation Comments HEMOGLOBIN A1C (BEAKER) (test code = 5.5 % 4.3-6.1 368) URINALYSIS W/ [id number] 05:37:00 Test Item Value Reference Range Interpretation [...] = 2795) CBC W/PLT COUNT & AUTO [id number] 05:13:00 Test Item Value Reference Range Interpretation [...] = 417) 0.00CREATINE KINASE (CK), TOTAL AND [id number] 05:09:00 Test Item Value Reference Range Interpretation Comments CREATINE KINASE TOTAL (BEAKER) 113 U/L 29-200 (test code = 380) CREATINE KINASE-MB (BEAKER) (test 2.1 ng/mL 0.0-6.6 code = 750) CREATINE KINASE-MB INDEX (BEAKER) 1.9 % (test code = 395) Effective 03/22/2014: CK-MB Reference Range ChangeNew: 0.0-6.6 Previous: 0.0-4.9CK-MB Reference Range:<6.7 Normal6.7-10.0 Borderline>10.0 AbnormalTROPONIN [id number] 05:09:00 Test Item Value Reference Range Interpretation [...] acidosis, acute neurological disease, and persistent tachyarrhythmia.LIPID [id number] 05:02:00 Test Item Value Reference Range Interpretation [...] 130-159 High 160-189 Very High >=190BASIC METABOLIC [id number] 05:02:00 Test Item Value Reference Range Interpretation [...] PATIEN TS. CREATINE KINASE (CK), TOTAL AND [id number] 00:43:00 Test Item Value Reference Range Interpretation Comments CREATINE KINASE TOTAL (BEAKER) 137 U/L 29-200 (test code = 380) CREATINE KINASE-MB (BEAKER) (test 2.6 ng/mL 0.0-6.6 code = 750) CREATINE KINASE-MB INDEX (BEAKER) 1.9 % (test code = 395) Effective 03/22/2014: CK-MB Reference Range ChangeNew: 0.0-6.6 Previous: 0.0-4.9CK-MB Reference Range:<6.7 Normal6.7-10.0 Borderline>10.0 AbnormalTROPONIN [id number] 00:43:00 Test Item Value Reference Range Interpretation [...] renalfailure, acidosis, acute neurological disease, and persistent tachyarrhythmia.[id number] 00:36:00 Test Item Value Reference Range Interpretation Comments LIPASE (BEAKER) (test code = 749) 34 U/L 8-78 COMPREHENSIVE METABOLIC [id number] 00:36:00 Test Item Value Reference Range Interpretation [...] S NOT APPLICABLE FOR DIALYSIS PATIEN TS. [id number] 00:28:00 Test Item Value Reference Range Interpretation [...] of thrombosis is within 95-100% range. PROTHROMBIN TIME/[id number] 00:24:00 Test Item Value Reference Range Interpretation [...]
--- NOTE | 2020-06-06 09:29 | RAD REPORT ---
EXAM DESCRIPTION: CT - CTHCSPWOC - 06/06/2020 9:11 am CLINICAL HISTORY: Trauma, head and neck injury. PAIN COMPARISON: Head C Spine Mpr Wo Con dated 06/05/2020 TECHNIQUE: Axial 5 mm thick images of the head were obtained. Axial 2 mm thick images of the cervical spine were obtained with sagittal and coronal reconstruction images generated and reviewed. All CT scans are performed using dose optimization technique as appropriate and may include automated exposure control or mA/KV adjustment according to patient size. FINDINGS: CT HEAD WITHOUT CONTRAST: No acute hemorrhage, hydrocephalus or extra-axial collection is identified.Advanced generalized brain atrophy is present with advanced periventricular and deep white matter chronic microvascular ischemi c changes.No areas of brain edema or midline shift. The paranasal sinuses and mastoids are clear.The calvarium is intact. CT CERVICAL SPINE WITHOUT CONTRAST: No fracture or subluxation.Moderate multilevel degenerative levoscoliosis.No prevertebral soft tissue s swelling is identified. IMPRESSION: No acute intracranial or cervical spine findings.
--- NOTE | 2020-06-06 10:12 | EDPHYS ---
Physician Documentation [facility] Name: Angel Robb Age: 84 yrs Sex: Male : 1935 Arrival Date: 06/06/2020 Time: 08:36 Bed 30 Private MD: ED Physician Sasha Nath HPI: 06/06 09:39 This 84 yrs old Male presents to ER via EMS with complaints of Fall Injury. ma2 09:39 Details of fall: The patient fell from seated position. Onset: The symptoms/episode ma2 began/occurred suddenly, 1 hour(s) ago. Associated injuries: The patient sustained injury to the head. Severity of symptoms: At their worst the symptoms were mild, in the emergency department the symptoms are unchanged. The patient has experienced similar episodes in the past. Historical: - Allergies: 08:36 No Known Allergies; aa5 - PMHx: 08:36 1st degree AVB; Anemia; Anxiety; BPH; CHF; Cholelithiasis; COVID-19; Dementia; aa5 Diverticulitis; Depressive disorder w/ severe psychotic symptoms; Glaucoma; Gout; Hypertension; Infective myocarditis; insomnia; osteoarthritis; PVD; Dysphagia; Hyperlipidemia; History of falls; UTI; - Immunization history:: Adult Immunizations unknown. - Social history:: Smoking status: unknown Patient/guardian denies using alcohol, street drugs, The patient lives with family. - Family history:: not pertinent. ROS: 09:39 Constitutional: Negative for fever, chills, and weight loss. ma2 09:39 All other systems are negative. Exam: 09:39 Constitutional: This is a well developed, well nourished patient who is awake, alert, ma2 and in no acute distress. Head/Face: has contusion and abrasion to forehead, he also as prior abrasion from yesterday fall that is partially healed and dry, no laceration Eyes: Pupils equal round and reactive to light, extra-ocular motions intact. Lids and lashes normal. Conjunctiva and sclera are non-icteric and not injected. Cornea within normal limits. Periorbital areas with no swelling, redness, or edema. ENT: Nares patent. No nasal discharge, no septal abnormalities noted. Tympanic membranes are normal and external auditory canals are clear. Oropharynx with no redness, swelling, or masses, exudates, or evidence of obstruction, uvula midline. Mucous membranes moist. Neck: Trachea midline, no thyromegaly or masses palpated, and no cervical lymphadenopathy. Supple, full range of motion without nuchal rigidity, or vertebral point tenderness. No Meningismus. Chest/axilla: Normal chest wall appearance and motion. Nontender with no deformity. No lesions are appreciated. Cardiovascular: Regular rate and rhythm with a normal S1 and S2. No gallops, murmurs, or rubs. Normal PMI, no JVD. No pulse deficits. Respiratory: Lungs have equal breath sounds bilaterally, clear to auscultation and percussion. No rales, rhonchi or wheezes noted. No increased work of breathing, no retractions or nasal flaring. Abdomen/GI: Soft, non-tender, with normal bowel sounds. No distension or tympany. No guarding or rebound. No evidence of tenderness throughout. Back: No spinal tenderness. No costovertebral tenderness. Full range of motion. MS/ Extremity: Pulses equal, no cyanosis. Neurovascular intact. Full, normal range of motion. Neuro: Awake and alert, GCS 15, oriented to person, place, time, and situation. Cranial nerves II-XII grossly intact. Motor strength 5/5 in all extremities. Sensory grossly intact. Cerebellar exam normal. Normal gait. Vital Signs: 08:36 BP 175 / 83; Pulse 76; Resp 16 S; Temp 98.1(O); Pulse Ox 100% on R/A; aa5 10:00 BP 173 / 82; Pulse 81; Resp 16; Pulse Ox 99% on R/A; aa5 11:00 BP 160 / 84; Pulse 80; Resp 18 S; Temp 98.0(TE); Pulse Ox 99% on R/A; aa5 12:00 BP 142 / 80; Pulse 78; Resp 16 S; Pulse Ox 100% on R/A; aa5 13:00 BP 140 / 82; Pulse 76; Resp 16 S; Temp 97.8(TE); Pulse Ox 100% on R/A; aa5 14:00 BP 138 / 80; Pulse 75; Resp 18 S; Pulse Ox 100% on R/A; aa5 15:00 BP 148 / 78; Pulse 77; Resp 16; Pulse Ox 100% on R/A; aa5 16:00 BP 134 / 75; Pulse 78; Resp 16 S; Temp 98.0(TE); Pulse Ox 100% on R/A; aa5 MDM: 08:41 Patient medically screened. ma2 09:39 Differential diagnosis: abrasion, closed head injury, contusion, fracture, laceration. ar2 10:11 Data reviewed: vital signs, nurses notes. Counseling: I had a detailed discussion with [facility] [place] the patient and/or guardian regarding: the historical points, exam findings, and any diagnostic results supporting the discharge/admit diagnosis, the presence of at least one elevated blood pressure reading (>120/80) during this emergency department visit, the need for outpatient follow up. Response to treatment: the patient's symptoms have markedly improved after treatment, the patient's symptoms have resolved after treatment. 06/06 08:41 Order name: CT Head C Spine [facility] [place] 06/06 09:30 Order name: CT; Complete Time: 09:47 [facility] 06/06 11:53 Order name: Shoulder Right (2 View) XRAY [facility] [place] 06/06 11:53 Order name: Shoulder Left (2 View) XRAY [facility] [place] 06/06 11:53 Order name: Humerus Right XRAY [facility] [place] 06/06 11:53 Order name: Chest Single View XRAY [facility] [place] Administered Medications: No medications were administered Disposition: 06/06/20 10:12 Discharged to Home. Impression: Other and unspecified injuries of head. - Condition is Stable. - Discharge Instructions: Head Injury, Adult, [id number]. - Medication Reconciliation Form, Thank You Letter, Antibiotic Education, Prescription Opioid Use form. - Follow up: Private Physician; When: Tomorrow; Reason: Continuance of care. Signatures: Dispatcher [employer] [facility] Tri Jaime RN RN aa5 Sasha Nath MD MD ma2 Corrections: (The following items were deleted from the chart) 17:11 10:12 06/06/2020 10:12 Discharged to Home. Impression: Other and unspecified injuries aa5 of head. Condition is Stable. Forms are Medication Reconciliation Form, Thank You Letter, Antibiotic Education, Prescription Opioid Use. Follow up: Private Physician; When: Tomorrow; Reason: Continuance of care. ma2
--- NOTE | 2020-06-06 10:12 | ER ---
Nurse's Notes [facility] Name: Angel Robb Age: 84 yrs Sex: Male : 1935 Arrival Date: 06/06/2020 Time: 08:36 Bed 30 Private MD: Diagnosis: Other and unspecified injuries of head Presentation: 06/06 08:36 Chief complaint: EMS states: fall out of wheelchair reported by [place] [id number] healthcare staff, negative LOC. Skin tear noted to right wrist, abrasion noted to top of head, and laceration noted to forehead. Pt c/o tova arm pain. No active bleeding noted. Pt was seen here last night for fall and has sutures in place to right eyebrow. 08:36 Care prior to arrival: None. Mechanism of Injury: Fall. Trauma event details: Injury aa5 occurred in the [facility], Injury occurred: [facility] Injury occurred: June 2020. 08:36 Acuity: GAVINO 3 aa5 08:36 Method Of Arrival: EMS: [facility] 08:36 Coronavirus screen: At this time, the client does not indicate any symptoms associated aa with coronavirus-19. 08:36 Ebola Screen: Patient negative for fever greater than or equal to 101.5 degrees aa5 Fahrenheit, and additional compatible Ebola Virus Disease symptoms. Initial Sepsis Screen: Does the patient meet any 2 criteria? No. Patient's initial sepsis screen is negative. Does the patient have a suspected source of infection? No. Patient's initial sepsis screen is negative. Risk Assessment: Do you want to hurt yourself or someone else? Unable to obtain. Onset of symptoms was June 06, 2020. Trauma Activation: Not Applicable Physician: ED Physician; Name: ; Notified At: ; Arrived At: Physician: General Surgeon; Name: ; Notified At: ; Arrived At: Physician: Radiology; Name: ; Notified At: ; Arrived At: Physician: Respiratory; Name: ; Notified At: ; Arrived At: Physician: Lab; Name: ; Notified At: ; Arrived At: Historical: - Allergies: 08:36 No Known Allergies; aa5 - PMHx: 08:36 1st degree AVB; Anemia; Anxiety; BPH; CHF; Cholelithiasis; COVID-19; Dementia; aa5 Diverticulitis; Depressive disorder w/ severe psychotic symptoms; Glaucoma; Gout; Hypertension; Infective myocarditis; insomnia; osteoarthritis; PVD; Dysphagia; Hyperlipidemia; History of falls; UTI; - Immunization history:: Adult Immunizations unknown. - Social history:: Smoking status: unknown Patient/guardian denies using alcohol, street drugs, The patient lives with family. - Family history:: not pertinent. Primary Survey: 08:36 NO uncontrolled hemorrhage observed. A: The patient is alert. Airway: patent. aa5 Breathing/Chest: Respiratory pattern: regular, Respiratory effort: spontaneous, unlabored. Circulation: Skin color: pink. Disability Alert. Exposure/Environment: A warming method has been applied: A warm blanket has been provided to the patient. Secondary Survey: 08:36 HEENT: Head Other (see nurse's notes) abrasion noted to top of head. Gastrointestinal: aa5 No deficits noted. : brief noted. Musculoskeletal: Pt moans with movement to right arm and left arm. Assessment: 08:36 General: Appears comfortable, Behavior is calm, cooperative. Pain: Unable to use pain aa5 scale. Does not appear to understand pain scale. Neuro: Level of Consciousness is awake, confused, Oriented to person. EENT: No signs and/or symptoms were reported regarding the EENT system. Cardiovascular: Patient's skin is warm and dry. Respiratory: Airway is patent Respiratory effort is even, unlabored, Respiratory pattern is regular, symmetrical. GI: Abdomen is round non-distended. : brief noted. Derm: Skin is pink, warm \\T\\ dry. Skin tear noted to forehead, skin tear noted to right wrist, abrasion with swollen area noted to top of head. Steri-strips noted to right eyebrow. 10:48 Reassessment: Wounds to top of head, right wrist, and forehead cleaned with saline. aa5 Wounds dressed with Neosporin, gauze, and tape. . 11:15 Reassessment: Attempted to call report to halfway nurse, spoke with Keiko LENNON and brijesh she stated they need "clinicals" before pt is transferred back to their facility ([facility]). Clinical information faxed to Keiko. . 11:45 Reassessment: Pt awake, lying down in bed, states no complaints. Equal and unlabored aa5 respirations, skin is pink/warm/dry. . 12:30 Reassessment: Pt resting in bed with eyes closed, respirations even and unlabored, skin aa5 is pink/warm/dry. . 13:35 Reassessment: Report given to Jimmy, nurse at [facility]. Jimmy states aa5 they will contact transport to transfer pt back to their facility. Unknown ETA at this time. . 13:50 Reassessment: Brief changed, urinary incontinence. Clean brief applied. . aa5 14:30 Reassessment: Pt resting in bed with eyes closed, pt easy to arouse to verbal stimuli, aa5 pt states no complaints at this time. Pt remains A\\T\\O x person. . 15:00 Reassessment: Pt resting in bed with eyes closed. Respirations even and unlabored, Pt aa5 appears comfortable. . 15:10 Reassessment: ETA for transportation is approximately 2 hours as reported by [address] 16:55 Reassessment: Brief changed, urinary incontinence. . aa5 Vital Signs: 08:36 BP 175 / 83; Pulse 76; Resp 16 S; Temp 98.1(O); Pulse Ox 100% on R/A; aa5 10:00 BP 173 / 82; Pulse 81; Resp 16; Pulse Ox 99% on R/A; aa5 11:00 BP 160 / 84; Pulse 80; Resp 18 S; Temp 98.0(TE); Pulse Ox 99% on R/A; aa5 12:00 BP 142 / 80; Pulse 78; Resp 16 S; Pulse Ox 100% on R/A; aa5 13:00 BP 140 / 82; Pulse 76; Resp 16 S; Temp 97.8(TE); Pulse Ox 100% on R/A; aa5 14:00 BP 138 / 80; Pulse 75; Resp 18 S; Pulse Ox 100% on R/A; aa5 15:00 BP 148 / 78; Pulse 77; Resp 16; Pulse Ox 100% on R/A; aa5 16:00 BP 134 / 75; Pulse 78; Resp 16 S; Temp 98.0(TE); Pulse Ox 100% on R/A; aa5 ED Course: 08:36 Patient arrived in ED. iw 08:36 Arm band placed on. aa5 08:36 Patient maintains SpO2 saturation greater than 95% on room air. Thermoregulation: warm aa5 blanket given to patient. 08:41 Sasha Nath MD is Attending Physician. ma2 09:06 Triage completed. aa5 09:29 Rochelle Justin, RN is Primary Nurse. iw 12:47 Shoulder Right (2 View) XRAY In Process Unspecified. EDMS 12:47 Shoulder Left (2 View) XRAY In Process Unspecified. EDMS 12:47 Humerus Right XRAY In Process Unspecified. EDMS 12:47 Chest Single View XRAY In Process Unspecified. EDMS Administered Medications: No medications were administered Outcome: 10:12 Discharge ordered by . ma2 17:05 Discharged to halfway. Report called to [place]. Via wheelchair van (contacted by aa5 halfway) 17:05 Condition: stable 17:11 Patient left the ED. aa5 Signatures: Dispatcher [employer] Rochelle Mejias, RN RN Tri Scruggs RN RN aa5 Sasha Nath MD MD akSury
--- NOTE | 2020-06-06 13:02 | RAD REPORT ---
EXAM DESCRIPTION: Shoulder Right 2 View - 06/06/2020 12:47 pm CLINICAL HISTORY: PAIN, fall, shoulder pain COMPARISON: No comparisons TECHNIQUE: Internal and external rotation views of the right shoulder were obtained. FINDINGS: No fracture or dislocation identified. AC joint degenerative changes are minimal with no separation spurring or other acute finding. Acromial humeral joint space is normal. Patient has sever e degenerative change in the shoulder joint joint narrowing and remodeling of the articular contour o f the bony glenoid. There are large marginal spurs at the inferior margin. There is deformity in cont our of the humeral head as well. Humeral head is sclerotic near the articular margin. AVN is possible . No pathologic findings seen. No suspicious soft tissue finding. IMPRESSION: Advanced right shoulder joint degenerative change as detailed. No fracture or dislocatio n identifiable.
--- NOTE | 2020-06-06 13:04 | RAD REPORT ---
EXAM DESCRIPTION: RAD - Humerus Right - 06/06/2020 12:47 pm CLINICAL HISTORY: PAINfall arm pain COMPARISON: Humerus Right dated 03/20/2020 FINDINGS: No fracture is identified. Advanced shoulder joint degenerative changes are present and de tailed on the separate right shoulder report. No significant soft tissue finding identifiable. Elbow joint is grossly normal as imaged. IMPRESSION: Negative right humerus examination. Shoulder joint findings are separately detailed.
--- NOTE | 2020-06-06 13:05 | RAD REPORT ---
EXAM DESCRIPTION: RAD - Shoulder Left 2 View - 06/06/2020 12:47 pm CLINICAL HISTORY: PAIN, fall with shoulder pain COMPARISON: No comparisons TECHNIQUE: Internal and external rotation views of the left shoulder were obtained. Images were obta ined portable. FINDINGS: There is no fracture or dislocation. AC joint degenerative changes minimal. Acromial humer al joint space is normal. Patient has advanced degenerative change the shoulder joint joint space chriss rowing and large inferior marginal spurs from the acromion and humeral head. There is deformity and r emodeling of the glenoid contour. There is some flattening and deformity of the humeral head is well. AVN in the medial humeral head is not excluded. IMPRESSION: Advanced left shoulder joint degenerative change as detailed. No fracture or dislocation identifiable.
--- NOTE | 2020-06-06 13:06 | RAD REPORT ---
EXAM DESCRIPTION: RAD - Chest Single View - 06/06/2020 12:47 pm CLINICAL HISTORY: CHEST PAIN, fall COMPARISON: Portable April 15, 2020 TECHNIQUE: AP portable chest image was obtained 06/06/2020 12:47 pm . FINDINGS: Lung volumes are low which accentuates the interstitial pattern. A mild interstitial edema or infiltrate cannot be excluded. No mass or consolidations seen. Pulmonary contusion not suspected. Heart and vasculature are normal. No measurable pleural effusion and no pneumothorax. No acute bony abnormality seen. No acute aortic findings suspected. IMPRESSION: Chronic interstitial lung pattern accentuated by shallow inspiration. This could mask mi ld edema or infiltrate. No pneumothorax, pulmonary contusion or other traumatic injury to the chest.
[2020-06-06 17:20] VITALS: TEMP 98.1
[2020-06-06 17:21] VITALS: BP 173/82; O2SAT 99
== END 2020-06-06 17:11 | disposition home or self-care (01) ==
LOC: ER 08:33
DX: S09.90XA Unspecified injury of head, initial encounter (principal); M25.511 Pain in right shoulder; M25.512 Pain in left shoulder; W19.XXXA Unspecified fall, initial encounter; I11.0 Hypertensive heart disease with heart failure; I50.9 Heart failure, unspecified; F41.9 Anxiety disorder, unspecified; N40.0 Benign prostatic hyperplasia without lower urinary tract symptoms; Z86.16 Personal history of COVID-19; F03.90 Unspecified dementia, unspecified severity, without behavioral disturbance, psychotic disturbance, mood disturbance, and anxiety; F32.9 Major depressive disorder, single episode, unspecified; H40.9 Unspecified glaucoma; M10.9 Gout, unspecified; M19.90 Unspecified osteoarthritis, unspecified site; E78.5 Hyperlipidemia, unspecified; I44.0 Atrioventricular block, first degree; D64.9 Anemia, unspecified; G47.00 Insomnia, unspecified; I73.9 Peripheral vascular disease, unspecified
CPT/HCPCS: 70450; 71045; 72125; 99284